=== PATIENT | female | born 1930 | race Caucasian/White ===

== ENCOUNTER 2017-07-16 15:49 | Inpatient (IN) | payer MEDICARE ==
[~2017-07-16] VITALS: Ht 165.1 cm; Wt 81.0 kg
[~2017-07-16 15:49] MED LIST: AMLO10TA2 PO; ASPI1TAB69 PO; CALTTAB PO; SYSTSOL EACH EYE
[2017-07-16 15:54] VITALS: BP 156/70; PULSE 72; RESP 16; TEMP 98; O2SAT 95
[2017-07-16] MEDS ORDERED: DEPRESSION MED (16:05)
[2017-07-16] MEDS ORDERED: TETANUS/DIPHTHERIA TOXOID ADULT 0.5 ML VIAL IM ONE (16:15)
--- NOTE | 2017-07-16 16:20 | PD ---
HPI Chief Complaint: Fall Time Seen by Provider: 15:59 Travel History International Travel<30 days: No Contact w/Intl Traveler<30days: No Traveled to known affect area: No History of Present Illness HPI The patient is a 87-year-old female who presents to the emergency department after tripping fall. The patient states she tripped earlier today and landed on her knees and her chin. The patient is unsure if there was any loss of consciousness, did complain initially of dizziness, but states the dizziness has resolved. She does complain of abrasion on the chin as well as a laceration and intraoral area, but denies any difficulty opening or closing the jaw. She does complain of a mild headache. She denies any neck pain, chest pain, shortness breath, nausea, abdominal pain, or difficulty moving her upper or lower extremities. The patient was able to ambulate after the accident. Her last tetanus shot is unknown. The patient's primary physician is Dr. Hernandez. The patient's symptoms are mild, exacerbated after falling, and mostly self alleviating except for the laceration. The patient denies taking any anticoagulants including aspirin, Plavix, Coumadin, and new generation anticoagulants. PFSH Past Medical History Hx Anticoagulant Therapy: No Arthritis: Yes (mild) Anxiety: Yes Depression: Yes Heart Rhythm Problems: Yes Cancer: No Cardiovascular Problems: Yes ("SKIPS A BEAT") High Cholesterol: Yes Diabetes: No Diminished Hearing: No Endocrine: No Gastrointestinal Disorders: Yes (GERD) GERD: Yes Genitourinary: No Hepatitis: No Hiatal Hernia: Yes Hypertension: Yes Immune Disorder: No Implanted Vascular Access Dvce: No Musculoskeletal: Yes (OA) Neurologic: Yes (VERTIGO) Psychiatric: Yes (DEPRESSION/ANXIETY (LOST 2 SONS RECENTLY)) Reproductive: No Respiratory: No Thyroid Disease: No Influenza Vaccination: Yes Menopausal: Yes Past Surgical History AICD: No Eye Surgery: Yes (sera cataract) Genitourinary Surgery: Yes (cystoscopy) Joint Replacement: Yes (LEFT KNEE) Oral Surgery: Yes (T & A) Pacemaker: No Other Surgery: Yes Social History Alcohol Use: No Tobacco Use: No Substance Use: No Allergies-Medications (Allergen,Severity, Reaction): Coded Allergies: No Known Allergies (Verified , 12/24/16) Reported Meds & Prescriptions Reported Meds & Active Scripts Active Reported [Depression Med] Systane Opth Drops (Polyethylene Glycol-Propylene Glycol Opth Drp) 0.4-0.3% Soln 1-2 Drop EACH EYE BID PRN Amlodipine (Amlodipine Besylate) 10 Mg Tab 10 Mg PO DAILY Review of Systems Except as stated in HPI: all other systems reviewed are Neg Eyes: No: Visual changes HENT: Positive: Headaches, Other (lip laceration and chin abrasion is noted), No: Neck Pain Cardiovascular: No: Chest Pain or Discomfort, Syncope Respiratory: No: Shortness of Breath Gastrointestinal: No: Nausea, Vomiting, Abdominal Pain Musculoskeletal: No: Limited ROM, Weakness, Pain Neurologic: Positive: Headache, No: Focal Abnormalities, Change in Mentation, Slurred Speech, Paresthesia, Incontinence Physical Exam Narrative GENERAL: Awake, alert, very pleasant 87-year-old female who appears her stated age and is in no acute respiratory distress. SKIN: Focused skin assessment warm/dry. HEAD: Superficial abrasion over the right aspect of the chin. EYES: Pupils equal and round. Pupils are 2 mm bilateral and reactive. EOMs are intact. With the patient wearing glasses she is able to see fingers at a distance of 2 feet without difficulty. ENT: No nasal bleeding or discharge. Patient has a laceration on the inside of the lower lip that is Y-shaped and measures 2 cm. NECK: Trachea midline. No JVD. No tenderness of the cervical vertebrae. CARDIOVASCULAR: Regular rate and rhythm. No murmur appreciated. RESPIRATORY: No accessory muscle use. Clear to auscultation. Breath sounds equal bilaterally. GASTROINTESTINAL: Abdomen soft, non-tender, nondistended. MUSCULOSKELETAL: No obvious deformities. No clubbing. No cyanosis. No edema. Well-healed scars of the anterior aspect of the knees bilaterally. Full range of motion with flexion and extension of the knees, hips, and elbows bilaterally. NEUROLOGICAL: Awake and alert. No obvious cranial nerve deficits. Motor grossly within normal limits. Normal speech. Alert and oriented 4. Follows commands without difficulty. Back: No tenderness over the thoracic or lumbar vertebrae. PSYCHIATRIC: Appropriate mood and affect; insight and judgment normal. Data Data Last Documented VS Vital Signs Date Time Temp Pulse Resp B/P (MAP) Pulse Ox O2 Delivery O2 Flow Rate FiO2 07/16/17 15:54 98.0 72 16 156/70 (98) 95 Orders Orders Tetanus/Diphtheria Tox Adult (Tetanus/Di (07/16/17 16:15) Ct Brain W/O Iv Contrast(Rout) (07/16/17 ) Bupivacaine Pf 0.5% Inj (Marcaine Pf 0.5 (07/16/17 16:45) Complete Blood Count With Diff (07/16/17 16:42) Comprehensive Metabolic Panel (07/16/17 16:42) Act Partial Throm Time (Ptt) (07/16/17 16:42) Prothrombin Time / Inr (Pt) (07/16/17 16:42) Type And Screen (07/16/17 16:42) NPO (07/16/17 16:42) Admit Order (Ed Use Only) (07/16/17 16:51) Labs Laboratory Tests Test 07/16/17 16:50 White Blood Count 10.0 TH/MM3 Red Blood Count 4.86 MIL/MM3 Hemoglobin 13.1 GM/DL Hematocrit 40.1 % Mean Corpuscular Volume 82.5 FL Mean Corpuscular Hemoglobin 26.8 PG Mean Corpuscular Hemoglobin Concent 32.5 % Red Cell Distribution Width 13.4 % Platelet Count 281 TH/MM3 Mean Platelet Volume 8.0 FL Neutrophils (%) (Auto) 72.1 % Lymphocytes (%) (Auto) 18.5 % Monocytes (%) (Auto) 7.4 % Eosinophils (%) (Auto) 1.7 % Basophils (%) (Auto) 0.3 % Neutrophils # (Auto) 7.2 TH/MM3 Lymphocytes # (Auto) 1.9 TH/MM3 Monocytes # (Auto) 0.7 TH/MM3 Eosinophils # (Auto) 0.2 TH/MM3 Basophils # (Auto) 0.0 TH/MM3 CBC Comment DIFF FINAL Differential Comment Prothrombin Time 10.3 SEC Prothromb Time International Ratio 0.9 RATIO Activated Partial Thromboplast Time 25.2 SEC Blood Urea Nitrogen 22 MG/DL Creatinine 0.60 MG/DL Random Glucose 101 MG/DL Total Protein 7.3 GM/DL Albumin 3.5 GM/DL Calcium Level 8.7 MG/DL Alkaline Phosphatase 75 U/L Aspartate Amino Transf (AST/SGOT) 18 U/L Alanine Aminotransferase (ALT/SGPT) 20 U/L Total Bilirubin 0.3 MG/DL Sodium Level 138 MEQ/L Potassium Level 3.7 MEQ/L Chloride Level 103 MEQ/L Carbon Dioxide Level 27.1 MEQ/L Anion Gap 8 MEQ/L Estimat Glomerular Filtration Rate 94 ML/MIN [facility] Medical Decision Making Medical Screen Exam Complete: Yes Emergency Medical Condition: Yes Medical Record Reviewed: Yes Interpretation(s) CT of the brain reveals a focal acute right sided epidural hematoma along the mid right parietal lobe with 1.4 cm of separation. No associated skull fracture. 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 There is bilateral cortical atrophy. Last Impressions Head CT 07/16/17 0000 Signed Impressions: Service Date/Time: Sunday, July 16, 2017 16:26 - CONCLUSION: 1. There is a focal acute right-sided epidural hematoma along the mid right parietal lobe with 1.4 cm of separation. No associated skull fracture. 2. 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 There is bilateral cortical atrophy Ruben Yanes MD Laboratory Tests Test 07/16/17 16:50 White Blood Count 10.0 TH/MM3 Red Blood Count 4.86 MIL/MM3 Hemoglobin 13.1 GM/DL Hematocrit 40.1 % Mean Corpuscular Volume 82.5 FL Mean Corpuscular Hemoglobin 26.8 PG Mean Corpuscular Hemoglobin Concent 32.5 % Red Cell Distribution Width 13.4 % Platelet Count 281 TH/MM3 Mean Platelet Volume 8.0 FL Neutrophils (%) (Auto) 72.1 % Lymphocytes (%) (Auto) 18.5 % Monocytes (%) (Auto) 7.4 % Eosinophils (%) (Auto) 1.7 % Basophils (%) (Auto) 0.3 % Neutrophils # (Auto) 7.2 TH/MM3 Lymphocytes # (Auto) 1.9 TH/MM3 Monocytes # (Auto) 0.7 TH/MM3 Eosinophils # (Auto) 0.2 TH/MM3 Basophils # (Auto) 0.0 TH/MM3 CBC Comment DIFF FINAL Differential Comment Prothrombin Time 10.3 SEC Prothromb Time International Ratio 0.9 RATIO Activated Partial Thromboplast Time 25.2 SEC Blood Urea Nitrogen 22 MG/DL Creatinine 0.60 MG/DL Random Glucose 101 MG/DL Total Protein 7.3 GM/DL Albumin 3.5 GM/DL Calcium Level 8.7 MG/DL Alkaline Phosphatase 75 U/L Aspartate Amino Transf (AST/SGOT) 18 U/L Alanine Aminotransferase (ALT/SGPT) 20 U/L Total Bilirubin 0.3 MG/DL Sodium Level 138 MEQ/L Potassium Level 3.7 MEQ/L Chloride Level 103 MEQ/L Carbon Dioxide Level 27.1 MEQ/L Anion Gap 8 MEQ/L Estimat Glomerular Filtration Rate 94 ML/MIN Differential Diagnosis Differential diagnosis includes mechanical fall, closed head injury, concussion , intracranial hemorrhage, subarachnoid hemorrhage, subdural hemorrhage, laceration, abrasion. Narrative Course CT of the brain was obtained. The patient's tetanus shot was updated. The patient declined Tylenol for pain at bedside. The patient's laceration was repaired by the mid-level provider, please refer to the procedure note. CT of the brain was positive for focal acute right sided epidural hematoma along the mid right parietal lobe with 1.4 cm of separation and no underlying associated skull fracture. A chronic appearing right sided subdural hygroma along the right frontal lobe. A stat call was placed to neurosurgery, I discussed the patient with the [facility]-level provider for Dr. Ramos who recommends stat transfer to [facility] and to the intensive surgical care unit under the care of the organ tuner. The patient will be kept nothing by mouth, last meal was at 2 PM. PT, PTT, INR, CBC, CMP, and type and screen were sent to lab. The patient will be transferred stat to [facility]. A call was placed to the organ tuner. The patient's blood pressure of 4:53 PM was 140/69, therefore, Cardene was held. Critical Care Narrative Aggregate critical care time was 40 minutes. Time to perform other separately billable procedures was not included in the critical care time. My time did not include minutes spent treating any other patients simultaneously or on activities that did not directly contribute to the patient's treatment. The services I provided to this patient were to treat and/or prevent clinically significant deterioration that could result in: Midline shift, herniation, agonal respirations, . I provided critical care services requiring my management, as noted below: Chart data review, documentation time, medication orders and management, vital sign assessments/reviewing monitor data, ordering and reviewing lab tests, ordering and interpreting/reviewing x-rays and diagnostic studies, care of the patient and discussion of the patient with the admitting physicians. Physician Communication Physician Communication I discussed the patient with the mid-level provider for Dr. Ramos who recommends stat transfer to [facility] and admission to the organ tuner. A call was placed to the organ tuner. I discussed the patient with Dr. Small who agrees with admission. Diagnosis Primary Impression: Traumatic epidural hematoma Qualified Codes: S06.4X0A - Epidural hemorrhage without loss of consciousness , initial encounter Additional Impression: Laceration of lip Qualified Codes: S01.511A - Laceration without foreign body of lip, initial encounter Admitting Information Admitting Physician Requests: Admit Condition: Serious Karan Zarate MD Jul 16, 2017 16:19
--- NOTE | 2017-07-16 16:39 | RADRPT ---
EXAM DATE/TIME: 07/16/2017 16:26 [facility] COMPARISON: No previous studies available for comparison. INDICATIONS : Tripped and fell. Hit head. RADIATION DOSE: 60.19 CTDIvol (mGy) MEDICAL HISTORY : Hypertension. Hypercholesterolemia. Anticoagulant therapy. SURGICAL HISTORY : None. ENCOUNTER: Initial ACUITY: 1 day PAIN SCALE: 4/10 LOCATION: cranial TECHNIQUE: Multiple contiguous axial images were obtained of the head. Using automated exposure control and adj ustment of the mA and/or kV according to patient size, radiation dose was kept as low as reasonably a chievable to obtain optimal diagnostic quality images. DICOM format image data is available electro nically for review and comparison. FINDINGS: CEREBRUM: The ventricles are normal for age. No evidence of midline shift, mass lesion or acute infarction. H owever, there is a focal acute epidural hematoma along the mid right parietal lobe with 1.4 cm of sep aration. There is a chronic appearing subdural hygroma along the right frontal lobe. There is bilater al cortical atrophy. POSTERIOR FOSSA: The cerebellum and brainstem are intact. The 4th ventricle is midline. The cerebellopontine angle i s unremarkable. EXTRACRANIAL: The visualized portion of the orbits is intact. SKULL: The calvaria is intact. No evidence of skull fracture. CONCLUSION: 1. There is a focal acute right-sided epidural hematoma along the mid right parietal lobe with 1.4 cm of separation. No associated skull fracture. 2. 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 There is bilateral cortical atrophy Ruben Yanes MD on July 16, 2017 at 16:34 Board Certified Radiologist. This report was verified electronically.
[2017-07-16] MEDS ORDERED: BUPIVACAINE HCL PF 0.5% 10 ML VIAL INFIL ONE (16:45)
--- NOTE | 2017-07-16 17:03 | PD ---
Physical Exam Narrative I was asked by Dr. Zarate to repair patient's intraoral laceration. Please see his documentation for full H&P. Data Data Last Documented VS Vital Signs Date Time Temp Pulse Resp B/P (MAP) Pulse Ox O2 Delivery O2 Flow Rate FiO2 07/16/17 15:54 98.0 72 16 156/70 (98) 95 Orders Orders Tetanus/Diphtheria Tox Adult (Tetanus/Di (07/16/17 16:15) Ct Brain W/O Iv Contrast(Rout) (07/16/17 ) Bupivacaine Pf 0.5% Inj (Marcaine Pf 0.5 (07/16/17 16:45) Complete Blood Count With Diff (07/16/17 16:42) Comprehensive Metabolic Panel (07/16/17 16:42) Act Partial Throm Time (Ptt) (07/16/17 16:42) Prothrombin Time / Inr (Pt) (07/16/17 16:42) Type And Screen (07/16/17 16:42) NPO (07/16/17 16:42) Admit Order (Ed Use Only) (07/16/17 16:51) Labs Laboratory Tests Test 07/16/17 16:50 MDM Supervised Visit with JOHN: No Procedures Procedure Narrative LACERATION REPAIR LOCATION: Intraoral lower lip LENGTH: Approximately 2 cm L-shaped NUMBER OF STITCHES/JUAN: 2 simple interrupted REPAIR: Verbal consent was obtained. The area of the laceration was cleaned and prepped. The laceration was infiltrated with Marcaine without epi. The wound was copiously irrigated and explored without evidence of foreign body or neurovascular injury. The wound was closed using 5-0 chromic gut. This was a single layer repair. There were no complications. Patient tolerated the procedure well. Diagnosis Primary Impression: Traumatic epidural hematoma Qualified Codes: S06.4X0A - Epidural hemorrhage without loss of consciousness , initial encounter Additional Impression: Laceration of lip Qualified Codes: S01.511A - Laceration without foreign body of lip, initial encounter Condition: Serious Jeremías Babb Jul 16, 2017 17:03
[2017-07-16 17:07] LABS: AUTOMATED NEUTROPHIL # 7.2 TH/MM3 (1.8-7.7); BASOPHIL % 0.3 % (0.0-2.0); EOSINOPHIL # 0.2 TH/MM3 (0-0.4); EOSINOPHIL % 1.7 % (0.0-4.0); HEMATOCRIT 40.1 % (35.0-46.0); LYMPH % 18.5 % (9.0-44.0); LYMPHOCYTE # 1.9 TH/MM3 (1.0-4.8); MEAN CELL VOLUME 82.5 FL (80.0-100.0); MEAN CORPUSCULAR HEMOGLOBIN 26.8 PG (27.0-34.0); MEAN CORPUSCULAR HGB CONC 32.5 % (32.0-36.0); MONO % 7.4 % (0.0-8.0); NEUT % 72.1 % (16.0-70.0); PLATELET COUNT 281 TH/MM3 (150-450); RED BLOOD COUNT 4.86 MIL/MM3 (4.00-5.30); RED CELL DISTRIBUTION WIDTH 13.4 % (11.6-17.2)
[2017-07-16 17:10] VITALS: BP 118/66; PULSE 66; RESP 17; O2SAT 96
[2017-07-16] MEDS ORDERED: SODIUM CHLOR 0.9% 1000 ML INJ 1,000 ML IV SCH ×2 (17:12→23:50)
[2017-07-16 17:15] LABS: CHLORIDE 103 MEQ/L (98-107); POTASSIUM 3.7 MEQ/L (3.5-5.1); SODIUM (NA) 138 MEQ/L (136-145)
[2017-07-16] MEDS ORDERED: CHLORHEXIDINE GLUCONATE 2 % 1 PACK (2 CLOTHS) TOP PRN (17:15)
[2017-07-16] MEDS ORDERED: RESP: ALBUTEROL 2.5 MG/IPRATROPIUM 0.5 MG NEB (PRN) INH (17:15)
[2017-07-16] MEDS ORDERED: MISCELLANEOUS NURSING INFORMATION XX SCH (17:15)
[2017-07-16] MEDS ORDERED: ONDANSETRON HCL 4 MG/2 ML VIAL IV PUSH PRN (17:15)
[2017-07-16] MEDS ORDERED: ACETAMINOPHEN 325 MG TAB PO PRN (17:15)
[2017-07-16] MEDS ORDERED: MORPHINE SULFATE 4 MG/ML INJ IV PUSH PRN (17:15)
[2017-07-16 17:19] LABS: ANION GAP 8 MEQ/L (5-15); BICARBONATE 27.1 MEQ/L (21.0-32.0); BLOOD UREA NITROGEN 22 MG/DL (7-18)
[2017-07-16 17:20] LABS: APTT (PATIENT) 25.2 SEC (24.3-30.1); INTERNATIONAL NORMALIZED RATIO 0.9 RATIO; PROTHROMBIN TIME - PATIENT 10.3 SEC (9.8-11.6)
[2017-07-16 17:22] LABS: ALT (GPT) 20 U/L (10-53); AST (GOT) 18 U/L (15-37)
[2017-07-16 17:23] LABS: GLOMERULAR FILTRATION RATE 94 ML/MIN (>89)
[2017-07-16 17:24] LABS: TOTAL BILIRUBIN ADULT 0.3 MG/DL (0.2-1.0)
[2017-07-16 17:25] LABS: ALKALINE PHOSPHATASE 75 U/L (45-117)
[2017-07-16 17:28] LABS: HEMO FLAGS DIFF FINAL
[2017-07-16] MEDS ORDERED: ARTIFICIAL TEARS OPTH SOLN 15 ML BTL EACH EYE PRN ×2 (17:30)
[2017-07-16 18:00] VITALS: BP 152/88; PULSE 66; RESP 18; TEMP 98.3; O2SAT 94
--- NOTE | 2017-07-16 18:49 | PD.CONS ---
[facility] Service Neurosurgery Consult Requested By [facility] Dr Martin Reason for Consult Epidural hematoma Primary Care Physician Wili Hernandez MD History of Present Illness This is a 87-year-old female who presents to [facility] emergency department after tripping fall. She states she tripped earlier today and landed on her knees and her chin. The patient is unsure if there was any loss of consciousness. No seizure activity. No tongue bitting. No incontinence of stool or urine. She had initially dizziness, but states the dizziness has resolved. She has an abrasion on the chin as well as a laceration and intraoral area, but denies any difficulty opening or closing the jaw. She does complain of a mild headache. She denies any neck pain, chest pain, shortness breath, nausea, abdominal pain, or difficulty moving her upper or lower extremities. The patient was able to ambulate after the accident. She denies any focal weaknes. Denies sensory loss. . Her primary physician is Dr. Hernandez. The patient's symptoms are mild, exacerbated after falling, and mostly self alleviating except for the laceration. The patient denies taking any anticoagulants including aspirin, Plavix, Coumadin, and new generation anticoagulants. Review of Systems Constitutional: DENIES: Diaphoretic episodes, Fatigue, Fever, Weight gain, Weight loss, Chills, Dizziness, Change in appetite, Night Sweats Endocrine: DENIES: Abnorml menstrual pattern, Heat/cold intolerance, Polydipsia , Polyuria, Polyphagia Eyes: DENIES: Blurred vision, Diplopia, Eye inflammation, Eye pain, Vision loss , Photosensitivity, Double Vision Ears, nose, mouth, throat: DENIES: Tinnitus, Hearing loss, Vertigo, Nasal discharge, Oral lesions, Throat pain, Hoarseness, Ear Pain, Running Nose, Epistaxis, Sinus Pain, Toothache, Odynophagia Respiratory: DENIES: Apneas, Cough, Snoring, Wheezing, Hemoptysis, Sputum production, Shortness of breath Gastrointestinal: DENIES: Abdominal pain, Black stools, Bloody stools, Constipation, Diarrhea, Nausea, Vomiting, Difficulty Swallowing, Anorexia Genitourinary: DENIES: Abnormal vaginal bleeding, Dysmenorrhea, Dyspareunia, Sexual dysfunction, Urinary frequency, Urinary incontinence, Urgency, Hematuria , Dysuria, Nocturia, Vaginal discharge Musculoskeletal: DENIES: Joint pain, Muscle aches, Stiffness, Joint Swelling, Back pain, Neck pain Integumentary: DENIES: Abnormal pigmentation, Pruritus, Rash, Nail changes, Breast masses, Breast skin changes, Nipple discharge Hematologic/lymphatic: DENIES: Bruising, Lymphadenopathy Immunologic/allergic: DENIES: Eczema, Urticaria Neurologic: COMPLAINS OF: Headache, Speech Problems, DENIES: Abnormal gait, Localized weakness, Paresthesias, Seizures, Tremor, Poor Balance Psychiatric: COMPLAINS OF: Anxiety, Depression, DENIES: Confusion, Mood changes , Hallucinations, Agitation, Suicidal Ideation, Homicidal Ideation, Delusions Past Family Social History Allergies: Coded Allergies: No Known Allergies (Verified , 12/24/16) Past Medical History Arthritis: Yes (mild) Anxiety: Yes Depression: Yes Heart Rhythm Problems: Yes Cancer: No Cardiovascular Problems: Yes ("SKIPS A BEAT") High Cholesterol: Yes Diabetes: No Diminished Hearing: No Endocrine: No Gastrointestinal Disorders: Yes (GERD) GERD: Yes Genitourinary: No Hepatitis: No Hiatal Hernia: Yes Hypertension: Yes Immune Disorder: No Implanted Vascular Access Dvce: No Musculoskeletal: Yes (OA) Neurologic: Yes (VERTIGO) Psychiatric: Yes (DEPRESSION, ANXIETY Reproductive: No Respiratory: No Thyroid Disease: No Influenza Vaccination: Yes Menopausal: Yes Past Surgical History AICD: No Eye Surgery: Yes (sera cataract) Genitourinary Surgery: Yes (cystoscopy) Joint Replacement: Yes (LEFT KNEE) Oral Surgery: Yes (T & A) Pacemaker: No Reported Medications Systane Opth Drops (Polyethylene Glycol-Propylene Glycol Opth Drp) 0.4-0.3% Soln 1-2 Drop EACH EYE BID PRN Amlodipine (Amlodipine Besylate) 10 Mg Tab 10 Mg PO DAILY Active Ordered Medications Current Medications Tetanus/ Diphtheria Toxoids (Tetanus/ Diphtheria Tox Adult) 0.5 ml ONCE ONCE IM Last administered on 07/16/17t 16:55; Start 07/16/17 at 16:15; Stop at 16:16; Status DC Bupivacaine HCl (Marcaine Pf 0.5% Inj) 10 ml ONCE ONCE INFIL Last administered on 07/16/17 16:55; Start 07/16/17 at 16:45; Stop 07/16/17 at 16 :46; Status DC Sodium Chloride 1,000 ml @ 75 mls/hr [id number] IV Last administered on 17:12; Start 07/16/17 at 17:12 Acetaminophen (Tylenol) 650 mg Q6H PRN PO PAIN 1-10 AND/OR FEVER >101F Last administered on 07/16/17 18:31; Start 07/16/17 at 17:15 Morphine Sulfate (Morphine Inj) 2 mg Q2H PRN IV PUSH PAIN SCALE 6 TO 10; Start 07/16/17 at 17:15 Pantoprazole Sodium (Protonix Inj) 40 mg DAILY IV PUSH ; Start 07/17/17 at 09: 00 Ondansetron HCl (Zofran Inj) 4 mg Q6H PRN IV PUSH NAUSEA OR VOMITING; Start at 17:15 Albuterol/ Ipratropium (Duoneb Neb) 1 ampule Q4HR NEB PRN INH WHEEZING; Start 07/16/17 at 17:15 Miscellaneous Information 1 [id number] XX Last administered on 07/16/17 17:15; Start 07/16/17 at 17:15 Chlorhexidine Gluconate (Chlorhexidine 2% Cloth) 3 pack Taper DAILY@04 TOP ; Start 07/17/17 at 04:00; Stop 07/13/18 at 03:59 Chlorhexidine Gluconate (Chlorhexidine 2% Cloth) 3 pack UNSCH PRN TOP HYGIENIC CARE; Start 07/16/17 at 17:15 Artificial Tears (Tears Naturale Opth Soln) 2 drop BID PRN EACH EYE DRY EYES; Start 07/16/17 at 17:30; Stop 07/16/17 at 17:30; Status DC Artificial Tears (Tears Naturale Opth Soln) 2 drop BID PRN EACH EYE DRY EYES; Start 07/16/17 at 17:30 Family History Her family history was reviewed and was noncontributory to this traumatic event Social History Social History Alcohol Use: No Tobacco Use: No Substance Use: No Physical Exam Vital Signs The patient is alert, awake and oriented to time, place and person. Speech is fluent. Higher cognitive functions are normal. Cranial nerve examination demonstrates the pupils to be equal, round, and reactive to light. Extra-ocular movements are intact. Facial motor and sensory function are normal and symmetrical. Gross hearing is decreased. The uvula is midline and elevates symmetrically with the soft palate. Sternocleidomastoid and trapezius muscles have normal and symmetrical strength. Other cranial nerves are intact. Neck is soft and supple. Cervical spine has a full range of motion in anterior flexion, extension, lateral bending, and rotation without pain. There is no tenderness to palpation to the spinous processes or paraspinal muscles. Muscle testing reveals normal bulk and tone overall without rigidity, spasticity , fasciculations, or atrophy. Muscle strength is 5/5 in all muscle groups of both upper extremities including deltoid, biceps, triceps, brachioradialis, wrist extension and spinning and winding supervisor. In the lower extremities, strength is 5/5 in both iliopsoas, quadriceps, hamstrings, plantar flexion, dorsiflexion, and extensor hallicus longus. Sensory examination is intact to light touch and sharp/dull discrimination in both the upper and lower extremities, symmetrically. Deep tendon reflexes are 2+ and symmetrical in the biceps, triceps, and brachioradialis, bilaterally, in the upper extremities. In the lower extremities , the patellar and Achilles are 2+, bilaterally. There is a bilateral plantar flexion response. Hoffmanns sign is negative. There is no clonus or other abnormal reflexes noted. Cerebellar examination is intact to [id number] test, rapid rhythmic alternating motion. There is no dysmetria, dysdiadochokinesia, truncal ataxia, or tremor. Vital Signs Date Time Temp Pulse Resp B/P (MAP) Pulse Ox O2 Delivery O2 Flow Rate FiO2 07/16/17 18:00 66 07/16/17 18:00 98.3 66 18 152/88 (109) 94 07/16/17 17:10 66 17 118/66 (83) 96 Room Air 07/16/17 15:54 98.0 72 16 156/70 (98) 95 Laboratory Laboratory Tests Test 07/16/17 16:50 07/16/17 18:30 White Blood Count 10.0 Red Blood Count 4.86 Hemoglobin 13.1 Hematocrit 40.1 Mean Corpuscular Volume 82.5 Mean Corpuscular Hemoglobin 26.8 Mean Corpuscular Hemoglobin Concent 32.5 Red Cell Distribution Width 13.4 Platelet Count 281 Mean Platelet Volume 8.0 Neutrophils (%) (Auto) 72.1 Lymphocytes (%) (Auto) 18.5 Monocytes (%) (Auto) 7.4 Eosinophils (%) (Auto) 1.7 Basophils (%) (Auto) 0.3 Neutrophils # (Auto) 7.2 Lymphocytes # (Auto) 1.9 Monocytes # (Auto) 0.7 Eosinophils # (Auto) 0.2 Basophils # (Auto) 0.0 CBC Comment DIFF FINAL Differential Comment Prothrombin Time 10.3 Prothromb Time International Ratio 0.9 Activated Partial Thromboplast Time 25.2 Blood Urea Nitrogen 22 Creatinine 0.60 Random Glucose 101 Total Protein 7.3 Albumin 3.5 Calcium Level 8.7 Alkaline Phosphatase 75 Aspartate Amino Transf (AST/SGOT) 18 Alanine Aminotransferase (ALT/SGPT) 20 Total Bilirubin 0.3 Sodium Level 138 Potassium Level 3.7 Chloride Level 103 Carbon Dioxide Level 27.1 Anion Gap 8 Estimat Glomerular Filtration Rate 94 Result Diagram: 07/16/17164907/16/171649 Assessment and Plan Assessment and Plan Caprini VTE Risk Assessment Caprini VTE Risk Assessment: Mod/High Risk (score >= 2) VTE Pharm Contraindication: High risk for bleeding Caprini Risk Assessment Model Point Value = 1 Point Value = 2 Point Value = 3 Point Value = 5 Age 41-60 Minor surgery BMI > 25 kg/m2 Swollen legs Varicose veins or History of unexplained or recurrent spontaneous Oral contraceptives or hormone replacement Sepsis (< 1 month) Serious lung disease, including pneumonia (< 1 month) Abnormal pulmonary function Acute myocardial infarction Congestive heart failure (< 1 month) History of inflammatory bowel disease Medical patient at bed rest Age 61-74 Arthroscopic surgery Major open surgery (> 45 min) Laparoscopic surgery (> 45 min) Malignancy Confined to bed (> 72 hours) Immobilizing plaster cast Central venous access Age >= 75 History of VTE Family history of VTE Factor V Leiden Prothrombin [id number] Lupus anticoagulant Anticardiolipin antibodies Elevated serum homocysteine Heparin-induced thrombocytopenia Other congenital or acquired thrombophilia Stroke (< 1 month) Elective arthroplasty Hip, pelvis, or leg fracture Acute spinal cord injury (< 1 month) Prophylaxis Regimen Total Risk Factor Score Risk Level Prophylaxis Regimen 0-1 Low Early ambulation 2 Moderate Order ONE of the following: *Sequential Compression Device (SCD) *Heparin 5000 units SQ BID 3-4 Higher Order ONE of the following medications: *Heparin 5000 units SQ TID *Enoxaparin/Lovenox 40 mg SQ daily (WT < 150 kg, CrCl > 30 mL/min) *Enoxaparin/Lovenox 30 mg SQ daily (WT < 150 kg, CrCl > 10-29 mL/min) *Enoxaparin/Lovenox 30 mg SQ BID (WT < 150 kg, CrCl > 30 mL/min) AND/OR *Sequential Compression Device (SCD) 5 or more Highest Order ONE of the following medications: *Heparin 5000 units SQ TID (Preferred with Epidurals) *Enoxaparin/Lovenox 40 mg SQ daily (WT < 150 kg, CrCl > 30 mL/min) *Enoxaparin/Lovenox 30 mg SQ daily (WT < 150 kg, CrCl > 10-29 mL/min) *Enoxaparin/Lovenox 30 mg SQ BID (WT < 150 kg, CrCl > 30 mL/min) AND *Sequential Compression Device (SCD) Attending Statement traumatic brain injury. Neuro checks in a serial fashion. Nonoperative treatent for now. Follow up CT in AM PT and OT evaluation Scalp laceration. Repaired at bedside. Wound care with bacitracin Pulmonary aggressive pulmonary toilette, nasotracheal suction, and breathing treatments with nebulizers. Nutrition. NPO Abrasion and laceration. Wound care with bacitracin Renal. monitor closely urine output, BUN and creatinine Fernandez in place. Monitor intake and output. Monitor electrolytes and replace as indicated per ICU electrolyte replacement protocol. ENDO:Acute hyperglycemia secondary to trauma. Monitor bedside glucose and initiate low-dose insulin sliding scale as indicated for glucose greater than 180 Protonix for stress ulcer prophylaxis Alonzo resendez and SCD's for DVT prophylaxis Yonatan Ramos MD Jul 16, 2017 18:49
[2017-07-16 20:00] VITALS: BP 144/67; PULSE 62; RESP 17; TEMP 98.1; O2SAT 94
[2017-07-16] MEDS ORDERED: ESCI10TA PO (21:08)
[2017-07-16 22:00] VITALS: PULSE 62
[2017-07-16] MEDS ORDERED: ESCITALOPRAM OXALATE 10 MG TAB PO ONE (23:00)
--- NOTE | 2017-07-16 23:46 | HHI.HP ---
[facility] Service Critical Care Medicine Primary Care Physician Wili Hernandez MD Admission Diagnosis epidural hematoma, laceration lower lip Diagnosis: Travel History International Travel<30 Days: No Contact w/Intl Traveler <30 Da: No Traveled to Known Affected Are: No History of Present Illness 87-year-old female who presented to [facility] emergency department after tripping fall. She states she tripped earlier today and landed on her knees and her chin. The patient is unsure if there was any loss of consciousness. No seizure activity. No tongue bitting. No incontinence of stool or urine. She had initially dizziness, but states the dizziness has resolved. She has an abrasion on the chin as well as a laceration and intraoral area, but denies any difficulty opening or closing the jaw. She does complain of a mild headache. She denies any neck pain, chest pain, shortness breath, nausea, abdominal pain, or difficulty moving her upper or lower extremities. The patient was able to ambulate after the accident. She denies any focal weaknes. Denies sensory loss. The CT of the head done in the emergency department revealed focal acute right-sided epidural hematoma along the mid right parietal lobe with 1.4 cm of separation. 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 Review of Systems ROS Constitutional: DENIES: Diaphoretic episodes, Fatigue, Fever, Weight gain, Weight loss, Chills, Dizziness, Change in appetite, Night Sweats Endocrine: DENIES: Abnorml menstrual pattern, Heat/cold intolerance, Polydipsia , Polyuria, Polyphagia Eyes: DENIES: Blurred vision, Diplopia, Eye inflammation, Eye pain, Vision loss , Photosensitivity, Double Vision Ears, nose, mouth, throat: DENIES: Tinnitus, Hearing loss, Vertigo, Nasal discharge, Oral lesions, Throat pain, Hoarseness, Ear Pain, Running Nose, Epistaxis, Sinus Pain, Toothache, Odynophagia Respiratory: DENIES: Apneas, Cough, Snoring, Wheezing, Hemoptysis, Sputum production, Shortness of breath Gastrointestinal: DENIES: Abdominal pain, Black stools, Bloody stools, Constipation, Diarrhea, Nausea, Vomiting, Difficulty Swallowing, Anorexia Genitourinary: DENIES: Abnormal vaginal bleeding, Dysmenorrhea, Dyspareunia, Sexual dysfunction, Urinary frequency, Urinary incontinence, Urgency, Hematuria , Dysuria, Nocturia, Vaginal discharge Musculoskeletal: DENIES: Joint pain, Muscle aches, Stiffness, Joint Swelling, Back pain, Neck pain Integumentary: DENIES: Abnormal pigmentation, Pruritus, Rash, Nail changes, Breast masses, Breast skin changes, Nipple discharge Hematologic/lymphatic: DENIES: Bruising, Lymphadenopathy Immunologic/allergic: DENIES: Eczema, Urticaria Neurologic: COMPLAINS OF: Headache, Speech Problems, DENIES: Abnormal gait, Localized weakness, Paresthesias, Seizures, Tremor, Poor Balance Psychiatric: COMPLAINS OF: Anxiety, Depression, DENIES: Confusion, Mood changes , Hallucinations, Agitation, Suicidal Ideation, Homicidal Ideation, Delusions Past Family Social History Allergies: Coded Allergies: No Known Allergies (Verified , 12/24/16) Past Medical History Hypertension Dyslipidemia Coronary artery disease Past Surgical History Bilateral knee arthroplasty Left hip arthroplasty Reported Medications Reported Meds & Active Scripts Active Reported Escitalopram (Escitalopram Oxalate) 10 Mg Tab 10 Mg PO HS Systane Opth Drops (Polyethylene Glycol-Propylene Glycol Opth Drp) 0.4-0.3% Soln 1-2 Drop EACH EYE BID PRN Amlodipine (Amlodipine Besylate) 10 Mg Tab 10 Mg PO DAILY Active Ordered Medications Current Medications Medications (Trade) Dose Ordered Sig/Hannah Route PRN Reason Start Time Stop Time Status Last Admin Dose Admin Morphine Sulfate (Morphine Inj) 2 mg Q2H PRN IV PUSH PAIN SCALE 6 TO 10 07/16/17 17:15 Pantoprazole Sodium (Protonix Inj) 40 mg DAILY IV PUSH 07/17/17 09:00 Albuterol/ Ipratropium (Duoneb Neb) 1 ampule Q4HR NEB PRN INH WHEEZING 07/16/17 17:15 Artificial Tears (Tears Naturale Opth Soln) 2 drop BID PRN EACH EYE DRY EYES 07/16/17 17:30 Amlodipine Besylate (Norvasc) 10 mg DAILY PO 07/17/17 09:00 Escitalopram Oxalate (Lexapro) 10 mg HS PO 07/17/17 21:00 Sodium Chloride 1,000 ml @ 84 mls/hr [id number] IV 07/16/17 23:50 07/17/17 00:00 Sodium Chloride (NS Flush) 2 ml UNSCH PRN IV FLUSH FLUSH AFTER USING IV ACCESS 07/17/17 00:00 Sodium Chloride (NS Flush) 2 ml BID IV FLUSH 07/17/17 09:00 Acetaminophen (Tylenol) 650 mg Q6H PRN PO PAIN 1-10 AND/OR FEVER >101F 07/17/17 00:00 Famotidine (Pepcid Inj) 20 mg Q12HR IV PUSH 07/17/17 09:00 Ondansetron HCl (Zofran Inj) 4 mg Q6H PRN IV PUSH NAUSEA OR VOMITING 07/17/17 00:00 Albuterol/ Ipratropium (Duoneb Neb) 1 ampule Q2HR NEB PRN INH WHEEZING 07/17/17 00:00 Miscellaneous Information 1 Q361D XX 07/17/17 00:00 Chlorhexidine Gluconate (Chlorhexidine 2% Cloth) 3 pack Taper DAILY@04 TOP 07/17/17 04:00 07/13/18 03:59 Chlorhexidine Gluconate (Chlorhexidine 2% Cloth) 3 pack UNSCH PRN TOP HYGIENIC CARE 07/17/17 00:00 Senna/Docusate Sodium (Coleen-Colace) 1 tab BID PO 07/17/17 09:00 Magnesium Hydroxide (Milk Of Magnesia Liq) 30 ml Q12H PRN PO Mild constipation 07/17/17 00:00 Sennosides (Senokot) 17.2 mg Q12H PRN PO Moderate constipation 07/17/17 00:00 Bisacodyl (Dulcolax Supp) 10 mg DAILY PRN RECTAL SEVERE CONSITIPATION 07/17/17 00:00 Lactulose (Lactulose Liq) 30 ml DAILY PRN PO SEVERE CONSITIPATION 07/17/17 00:00 Family History No family history significant for coronary artery disease or malignancy Social History Denies alcohol tobacco or illicit drug abuse Physical Exam Vital Signs Vital Signs Date Time Temp Pulse Resp B/P (MAP) Pulse Ox O2 Delivery O2 Flow Rate FiO2 07/16/17 19:31 20 07/16/17 18:00 66 07/16/17 18:00 98.3 66 18 152/88 (109) 94 07/16/17 17:10 66 17 118/66 (83) 96 Room Air 07/16/17 15:54 98.0 72 16 156/70 (98) 95 Physical Exam GENERAL: Well-nourished, well-developed patient. SKIN: Warm and dry. HEAD: Normocephalic. EYES: No scleral icterus. No injection or drainage. NECK: Supple, trachea midline. No JVD or lymphadenopathy. CARDIOVASCULAR: Regular rate and rhythm without murmurs, gallops, or rubs. RESPIRATORY: Breath sounds equal bilaterally. No accessory muscle use. GASTROINTESTINAL: Abdomen soft, non-tender, nondistended. MUSCULOSKELETAL: No cyanosis, or edema. BACK: Nontender without obvious deformity. NEURO EXAM: GCS: M6 V5 E4 Mental Status: The patient is alert and oriented to person, place, and time with normal speech. Cranial Nerves: Visual acuity intact bilaterally. Visual mallory normal in all quadrants. Pupils are round, reactive to light. Extraocular movements are intact without ptosis. Hearing is normal bilaterally. Voice is normal. Tongue protrudes midline and moves symmetrically. Reflexes: Biceps, patellar, and Achilles are 2/4 bilaterally. No clonus. Sensation: Sensation is intact bilaterally to pain and light touch. Two-point discrimination is intact. Motor: Good muscle tone. Strength is 5/5 bilaterally. Laboratory Laboratory Tests Test 07/16/17 16:50 07/16/17 18:30 White Blood Count 10.0 Red Blood Count 4.86 Hemoglobin 13.1 Hematocrit 40.1 Mean Corpuscular Volume 82.5 Mean Corpuscular Hemoglobin 26.8 Mean Corpuscular Hemoglobin Concent 32.5 Red Cell Distribution Width 13.4 Platelet Count 281 Mean Platelet Volume 8.0 Neutrophils (%) (Auto) 72.1 Lymphocytes (%) (Auto) 18.5 Monocytes (%) (Auto) 7.4 Eosinophils (%) (Auto) 1.7 Basophils (%) (Auto) 0.3 Neutrophils # (Auto) 7.2 Lymphocytes # (Auto) 1.9 Monocytes # (Auto) 0.7 Eosinophils # (Auto) 0.2 Basophils # (Auto) 0.0 CBC Comment DIFF FINAL Differential Comment Prothrombin Time 10.3 Prothromb Time International Ratio 0.9 Activated Partial Thromboplast Time 25.2 Blood Urea Nitrogen 22 Creatinine 0.60 Random Glucose 101 Total Protein 7.3 Albumin 3.5 Calcium Level 8.7 Alkaline Phosphatase 75 Aspartate Amino Transf (AST/SGOT) 18 Alanine Aminotransferase (ALT/SGPT) 20 Total Bilirubin 0.3 Sodium Level 138 Potassium Level 3.7 Chloride Level 103 Carbon Dioxide Level 27.1 Anion Gap 8 Estimat Glomerular Filtration Rate 94 Nasal Screen MRSA (PCR) MRSA NOT DETECTED Result Diagram: 07/16/17164907/16/171649 Caprini VTE Risk Assessment Caprini VTE Risk Assessment: No/Low Risk (score <= 1) Caprini Risk Assessment Model Point Value = 1 Point Value = 2 Point Value = 3 Point Value = 5 Age 41-60 Minor surgery BMI > 25 kg/m2 Swollen legs Varicose veins or History of unexplained or recurrent spontaneous Oral contraceptives or hormone replacement Sepsis (< 1 month) Serious lung disease, including pneumonia (< 1 month) Abnormal pulmonary function Acute myocardial infarction Congestive heart failure (< 1 month) History of inflammatory bowel disease Medical patient at bed rest Age 61-74 Arthroscopic surgery Major open surgery (> 45 min) Laparoscopic surgery (> 45 min) Malignancy Confined to bed (> 72 hours) Immobilizing plaster cast Central venous access Age >= 75 History of VTE Family history of VTE Factor V Leiden Prothrombin [id number] Lupus anticoagulant Anticardiolipin antibodies Elevated serum homocysteine Heparin-induced thrombocytopenia Other congenital or acquired thrombophilia Stroke (< 1 month) Elective arthroplasty Hip, pelvis, or leg fracture Acute spinal cord injury (< 1 month) Prophylaxis Regimen Total Risk Factor Score Risk Level Prophylaxis Regimen 0-1 Low Early ambulation 2 Moderate Order ONE of the following: *Sequential Compression Device (SCD) *Heparin 5000 units SQ BID 3-4 Higher Order ONE of the following medications: *Heparin 5000 units SQ TID *Enoxaparin/Lovenox 40 mg SQ daily (WT < 150 kg, CrCl > 30 mL/min) *Enoxaparin/Lovenox 30 mg SQ daily (WT < 150 kg, CrCl > 10-29 mL/min) *Enoxaparin/Lovenox 30 mg SQ BID (WT < 150 kg, CrCl > 30 mL/min) AND/OR *Sequential Compression Device (SCD) 5 or more Highest Order ONE of the following medications: *Heparin 5000 units SQ TID (Preferred with Epidurals) *Enoxaparin/Lovenox 40 mg SQ daily (WT < 150 kg, CrCl > 30 mL/min) *Enoxaparin/Lovenox 30 mg SQ daily (WT < 150 kg, CrCl > 10-29 mL/min) *Enoxaparin/Lovenox 30 mg SQ BID (WT < 150 kg, CrCl > 30 mL/min) AND *Sequential Compression Device (SCD) Assessment and Plan Assessment and Plan Epidural hematoma - No surgical intervention at this time - Admit to ICU - Neuro checks per unit protocol - PT and OT eval and treat as tolerated - Further management per neurosurgeon Hygroma - Chronic - Supportive care Hypertension - Continue home dose Norvasc Anxiety - Escitalopram Dyslipidemia - Diet controlled DVT GI prophylaxis - Teds SCDs - Early aggressive mobilization - No pharmacological DVT prophylaxis due to intracranial bleed - Regular diet when cleared by speech therapy - Pepcid Critical Care: The total critical care time was 35 minutes. Time to perform other separately billable procedures was not included in the critical care time. Otis Crespo MD Jul 16, 2017 23:46
[2017-07-17] VITALS (8 sets, daily range): BP systolic 141–148; BP diastolic 64–71; PULSE 60–74; RESP 15–36; TEMP 98.4–98.8; O2SAT 95–97
[2017-07-17] MEDS ORDERED: LACTULOSE SYRUP 20 GM/30 ML CUP PO PRN
[2017-07-17] MEDS ORDERED: MAGNESIUM HYDROXIDE SUSP 30 ML CUP PO PRN
[2017-07-17] MEDS ORDERED: ACETAMINOPHEN 325 MG TAB PO PRN
[2017-07-17] MEDS ORDERED: ONDANSETRON HCL 4 MG/2 ML VIAL IV PUSH PRN
[2017-07-17] MEDS ORDERED: SODIUM CHLORIDE 0.9% FLUSH 10 ML FLUSH IV FLUSH PRN
[2017-07-17] MEDS ORDERED: MISCELLANEOUS NURSING INFORMATION XX SCH
[2017-07-17] MEDS ORDERED: RESP: ALBUTEROL 2.5 MG/IPRATROPIUM 0.5 MG NEB (PRN) INH
[2017-07-17] MEDS ORDERED: CHLORHEXIDINE GLUCONATE 2 % 1 PACK (2 CLOTHS) TOP PRN
[2017-07-17] MEDS ORDERED: BISACODYL 10 MG SUPP RECTAL PRN
[2017-07-17] MEDS ORDERED: SENNOSIDES 8.6 MG TAB PO PRN
[2017-07-17] MEDS ORDERED: CHLORHEXIDINE GLUCONATE 2 % 1 PACK (2 CLOTHS) TOP SCH ×2 (04:00)
--- NOTE | 2017-07-17 04:39 | RADRPT ---
EXAM DATE/TIME: 07/17/2017 04:22 [place] COMPARISON: CT BRAIN W/O CONTRAST, July 16, 2017, 16:26. INDICATIONS : Follow up hemorrhage. RADIATION DOSE: 31.29 CTDIvol (mGy) MEDICAL HISTORY : Hypertension. SURGICAL HISTORY : None. ENCOUNTER: Subsequent ACUITY: 1 day PAIN SCALE: 4/10 LOCATION: cranial TECHNIQUE: Multiple contiguous axial images were obtained of the head. Using automated exposure control and adj ustment of the mA and/or kV according to patient size, radiation dose was kept as low as reasonably a chievable to obtain optimal diagnostic quality images. DICOM format image data is available electro nically for review and comparison. FINDINGS: There is a stable right subdural hematoma measuring 1.2 cm without mass effect or midline shift. No a cute hemorrhage is seen. Posterior fossa structures are unremarkable. There is no evidence of acute c ortical infarction. There is also a thin subdural hygroma over the left cerebral convexity measuring no more than 5 mm. CONCLUSION: 1. Stable right subdural hematoma. No acute hemorrhage is identified. Wili Richardson MD on July 17, 2017 at 4:34 Board Certified Radiologist. This report was verified electronically.
[2017-07-17 04:44] LABS: AUTOMATED NEUTROPHIL # 5.3 TH/MM3 (1.8-7.7); BASOPHIL % 0.2 % (0.0-2.0); EOSINOPHIL # 0.2 TH/MM3 (0-0.4); EOSINOPHIL % 2.8 % (0.0-4.0); HEMATOCRIT 38.4 % (35.0-46.0); HEMO FLAGS DIFF FINAL; LYMPH % 22.1 % (9.0-44.0); LYMPHOCYTE # 1.8 TH/MM3 (1.0-4.8); MEAN CELL VOLUME 82.2 FL (80.0-100.0); MEAN CORPUSCULAR HEMOGLOBIN 27.4 PG (27.0-34.0); MEAN CORPUSCULAR HGB CONC 33.3 % (32.0-36.0); MONO % 10.3 % (0.0-8.0); NEUT % 64.6 % (16.0-70.0); PLATELET COUNT 232 TH/MM3 (150-450); RED BLOOD COUNT 4.67 MIL/MM3 (4.00-5.30); RED CELL DISTRIBUTION WIDTH 13.9 % (11.6-17.2); WHITE BLOOD COUNT 8.2 TH/MM3 (4.0-11.0)
[2017-07-17 04:47] LABS: PROTHROMBIN TIME - PATIENT 10.7 SEC (9.8-11.6)
[2017-07-17 05:04] LABS: ANION GAP 6 MEQ/L (5-15); AST (GOT) 16 U/L (15-37); BICARBONATE 27.3 MEQ/L (21.0-32.0); BLOOD UREA NITROGEN 13 MG/DL (7-18); CHLORIDE 107 MEQ/L (98-107); GLOMERULAR FILTRATION RATE 102 ML/MIN (>89); MAGNESIUM 2.1 MG/DL (1.5-2.5); POTASSIUM 3.6 MEQ/L (3.5-5.1); SODIUM (NA) 140 MEQ/L (136-145)
[2017-07-17 05:05] LABS: ALT (GPT) 18 U/L (10-53)
[2017-07-17 05:07] LABS: ALKALINE PHOSPHATASE 74 U/L (45-117); TOTAL BILIRUBIN ADULT 0.7 MG/DL (0.2-1.0)
[2017-07-17] MEDS ORDERED: SODIUM CHLORIDE 0.9% FLUSH 10 ML FLUSH IV FLUSH SCH (09:00)
[2017-07-17] MEDS ORDERED: DOCUSATE SODIUM 50 MG/SENNA 8.6 MG TAB PO SCH (09:00)
[2017-07-17] MEDS ORDERED: PANTOPRAZOLE SODIUM 40 MG VIAL IV PUSH SCH (09:00)
[2017-07-17] MEDS ORDERED: FAMOTIDINE 20 MG/2 ML VIAL IV PUSH SCH (09:00)
--- NOTE | 2017-07-17 11:08 | HHI.CCPN ---
Subjective Remarks/Hospital Course 87-year-old female who presented to [facility] emergency department after tripping fall. She states she tripped earlier today and landed on her knees and her chin. The patient is unsure if there was any loss of consciousness. No seizure activity. No tongue bitting. No incontinence of stool or urine. She had initially dizziness, but states the dizziness has resolved. She has an abrasion on the chin as well as a laceration and intraoral area, but denies any difficulty opening or closing the jaw. She does complain of a mild headache. She denies any neck pain, chest pain, shortness breath, nausea, abdominal pain, or difficulty moving her upper or lower extremities. The patient was able to ambulate after the accident. She denies any focal weaknes. Denies sensory loss. The CT of the head done in the emergency department revealed focal acute right-sided epidural hematoma along the mid right parietal lobe with 1.4 cm of separation. 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 07/17: Head CT today shows attenuated hematoma looking more like a subdural bleed. No skull fracture. Objective Vital Signs Date Time Temp Pulse Resp B/P (MAP) Pulse Ox O2 Delivery O2 Flow Rate FiO2 07/17/17 10:00 69 07/17/17 08:00 98.8 36 145/67 (93) 96 07/17/17 07:50 Nasal Cannula 2.00 Intake and Output 07/17/17 07/17/17 07/18/17 08:00 16:00 00:00 Intake Total 893 ml Balance 893 ml Result Diagram: 07/17/17 0407 07/17/17 0407 Objective Remarks GENERAL: Well-nourished, well-developed patient. SKIN: Warm and dry. HEAD: Normocephalic. EYES: No scleral icterus. No injection or drainage. NECK: Supple, trachea midline. No JVD or lymphadenopathy. CARDIOVASCULAR: Regular rate and rhythm without murmurs, gallops, or rubs. RESPIRATORY: Breath sounds equal bilaterally. No accessory muscle use. GASTROINTESTINAL: Abdomen soft, non-tender, nondistended. MUSCULOSKELETAL: No cyanosis, or edema. BACK: Nontender without obvious deformity. NEURO EXAM: GCS 15 ( M6 V5 E4 ) Mental Status: Alert and oriented to person, place, and time with clearspeech. Cranial Nerves: Visual acuity intact bilaterally. Visual mallory normal in all quadrants. Pupils are round, reactive to light. Extraocular movements are intact without ptosis. Hearing is normal bilaterally. Voice is normal. Tongue protrudes midline and moves symmetrically. Reflexes: Biceps, patellar, and Achilles are 2/4 bilaterally. No clonus or tremor. Sensation: Sensation is intact bilaterally to pain and light touch. Two-point discrimination is intact. Motor: Good muscle tone. Strength is 5/5 bilaterally. A/P Assessment and Plan Subdural hematoma, traumatic - No surgical intervention at this time - Neuro checks per unit protocol - PT and OT eval and treat as tolerated - Further management per neurosurgeon - Discharge home with instructions. Hygroma - Chronic - Supportive care Hypertension - Continue home dose Norvasc Anxiety - Escitalopram Dyslipidemia - Diet controlled DVT GI prophylaxis - Teds SCDs - Early aggressive mobilization - No pharmacological DVT prophylaxis due to intracranial bleed - Regular diet when cleared by speech therapy - Pepciwalker Overall impression: Talkative, cooperative, memory intact, GCS 15. Home today with a friend. Romeo Quiroga MD Jul 17, 2017 11:08
--- NOTE | 2017-07-17 11:12 | HHI.NSPN ---
Note Status Status: Progress Note Interval History Interval History This is a 87-year-old female who presents to [facility] emergency department after tripping fall. She states she tripped earlier today and landed on her knees and her chin. The patient is unsure if there was any loss of consciousness. No seizure activity. No tongue bitting. No incontinence of stool or urine. She had initially dizziness, but states the dizziness has resolved. She has an abrasion on the chin as well as a laceration and intraoral area, but denies any difficulty opening or closing the jaw. She does complain of a mild headache. She denies any neck pain, chest pain, shortness breath, nausea, abdominal pain, or difficulty moving her upper or lower extremities. The patient was able to ambulate after the accident. She denies any focal weaknes. Denies sensory loss. . Her primary physician is Dr. Hernandez. The patient's symptoms are mild, exacerbated after falling, and mostly self alleviating except for the laceration. The patient denies taking any anticoagulants including aspirin, Plavix, Coumadin, and new generation anticoagulants. 07/17: patient is doing well, denies headaches, focal weakness, nausea, vomiting , seizures. f/u CT Head completed this morning reports stable SDH. Labs, Micro, & Vital Signs Results Date Time Temp Pulse Resp B/P (MAP) Pulse Ox O2 Delivery O2 Flow Rate FiO2 07/17/17 10:00 69 07/17/17 08:00 74 07/17/17 08:00 98.8 74 36 145/67 (93) 96 07/17/17 07:50 97 Nasal Cannula 2.00 07/17/17 07:00 74 07/17/17 07:00 95 Nasal Cannula 2.00 07/17/17 06:00 68 07/17/17 04:00 98.5 60 20 148/71 (96) 95 07/17/17 04:00 60 07/17/17 02:00 62 07/17/17 00:00 98.4 60 15 141/64 (89) 97 07/17/17 00:00 60 07/16/17 22:00 62 07/16/17 20:00 62 07/16/17 20:00 98.1 62 17 144/67 (92) 94 07/16/17 19:31 20 07/16/17 19:00 94 Room Air 07/16/17 18:00 66 07/16/17 18:00 98.3 66 18 152/88 (109) 94 07/16/17 17:10 66 17 118/66 (83) 96 Room Air 07/16/17 15:54 98.0 72 16 156/70 (98) 95 Constitutional Vital Signs Date Time Temp Pulse Resp B/P (MAP) Pulse Ox O2 Delivery O2 Flow Rate FiO2 07/17/17 10:00 69 07/17/17 08:00 74 07/17/17 08:00 98.8 74 36 145/67 (93) 96 07/17/17 07:50 97 Nasal Cannula 2.00 07/17/17 07:00 74 07/17/17 07:00 95 Nasal Cannula 2.00 07/17/17 06:00 68 07/17/17 04:00 98.5 60 20 148/71 (96) 95 07/17/17 04:00 60 07/17/17 02:00 62 07/17/17 00:00 98.4 60 15 141/64 (89) 97 07/17/17 00:00 60 07/16/17 22:00 62 07/16/17 20:00 62 07/16/17 20:00 98.1 62 17 144/67 (92) 94 07/16/17 19:31 20 07/16/17 19:00 94 Room Air 07/16/17 18:00 66 07/16/17 18:00 98.3 66 18 152/88 (109) 94 07/16/17 17:10 66 17 118/66 (83) 96 Room Air 07/16/17 15:54 98.0 72 16 156/70 (98) 95 Physical Exam Ms. Puente is alert, awake and oriented to time, place and person. Speech is fluent. Follows commands without difficulties. Sitting up in chair, very pleasant and in no apparent distress. Conversing well. Mild bruising to her chin. Cranial nerve examination: pupils to be equal, round, and reactive to light. Extra-ocular movements are intact. Facial motor and sensory function are normal and symmetrical. Neck is soft and supple. Muscle strength is 5/5 in all muscle groups of both upper and lower extremities. Sensory examination is intact to light touch in both the upper and lower extremities, symmetrically. Cerebellar examination is intact to [id number] test. Medications Current Medications Current Medications Medications (Trade) Dose Ordered Sig/Hannah Route PRN Reason Start Time Stop Time Status Last Admin Dose Admin Morphine Sulfate (Morphine Inj) 2 mg Q2H PRN IV PUSH PAIN SCALE 6 TO 10 07/16/17 17:15 Pantoprazole Sodium (Protonix Inj) 40 mg DAILY IV PUSH 07/17/17 09:00 07/17/17 08:20 Albuterol/ Ipratropium (Duoneb Neb) 1 ampule Q4HR NEB PRN INH WHEEZING 07/16/17 17:15 Artificial Tears (Tears Naturale Opth Soln) 2 drop BID PRN EACH EYE DRY EYES 07/16/17 17:30 Amlodipine Besylate (Norvasc) 10 mg DAILY PO 07/17/17 09:00 Escitalopram Oxalate (Lexapro) 10 mg HS PO 07/17/17 21:00 Sodium Chloride 1,000 ml @ 84 mls/hr [id number] IV 07/16/17 23:50 07/17/17 00:00 Sodium Chloride (NS Flush) 2 ml UNSCH PRN IV FLUSH FLUSH AFTER USING IV ACCESS 07/17/17 00:00 Sodium Chloride (NS Flush) 2 ml BID IV FLUSH 07/17/17 09:00 07/17/17 08:20 Acetaminophen (Tylenol) 650 mg Q6H PRN PO PAIN 1-10 AND/OR FEVER >101F 07/17/17 00:00 Famotidine (Pepcid Inj) 20 mg Q12HR IV PUSH 07/17/17 09:00 Ondansetron HCl (Zofran Inj) 4 mg Q6H PRN IV PUSH NAUSEA OR VOMITING 07/17/17 00:00 Albuterol/ Ipratropium (Duoneb Neb) 1 ampule Q2HR NEB PRN INH WHEEZING 07/17/17 00:00 Miscellaneous Information 1 Q361D XX 07/17/17 00:00 07/17/17 00:46 Chlorhexidine Gluconate (Chlorhexidine 2% Cloth) 3 pack Taper DAILY@04 TOP 07/17/17 04:00 07/13/18 03:59 Chlorhexidine Gluconate (Chlorhexidine 2% Cloth) 3 pack UNSCH PRN TOP HYGIENIC CARE 07/17/17 00:00 Senna/Docusate Sodium (Coleen-Colace) 1 tab BID PO 07/17/17 09:00 07/17/17 08:20 Magnesium Hydroxide (Milk Of Magnesia Liq) 30 ml Q12H PRN PO Mild constipation 07/17/17 00:00 Sennosides (Senokot) 17.2 mg Q12H PRN PO Moderate constipation 07/17/17 00:00 Bisacodyl (Dulcolax Supp) 10 mg DAILY PRN RECTAL SEVERE CONSITIPATION 07/17/17 00:00 Lactulose (Lactulose Liq) 30 ml DAILY PRN PO SEVERE CONSITIPATION 07/17/17 00:00 Medical Decision Making MDM Remarks 87 year old female s/p trip and fall. CT Brain 07/16 with right parietal epidural hematoma, f/u CT Head 07/17 stable ICH nonfocal examination Plan Plan Remarks f/u CT Head reviewed by Dr. Ramos, nonoperative management neuro exam stable and nonfocal, clear to dc from NRS standpoint discussed with patient to avoid falls and head trauma nursing Clara Jack Jul 17, 2017 11:12
--- NOTE | 2017-07-17 11:12 | HHI.DS ---
Discharge Summary Admission Date Jul 16, 2017 at 16:56 Discharge Date: Jul 17, 2017 Admitting Diagnosis epidural hematoma, laceration lower lip (1) Traumatic subdural hematoma ICD Code: S06.5X9A - Traumatic subdural hemorrhage with loss of consciousness of unspecified duration, initial encounter Brief History 87-year-old female who presented to [facility] emergency department after tripping fall. She states she tripped earlier today and landed on her knees and her chin. The patient is unsure if there was any loss of consciousness. No seizure activity. No tongue bitting. No incontinence of stool or urine. She had initially dizziness, but states the dizziness has resolved. She has an abrasion on the chin as well as a laceration and intraoral area, but denies any difficulty opening or closing the jaw. She does complain of a mild headache. She denies any neck pain, chest pain, shortness breath, nausea, abdominal pain, or difficulty moving her upper or lower extremities. The patient was able to ambulate after the accident. She denies any focal weaknes. Denies sensory loss. The CT of the head done in the emergency department revealed focal acute right-sided epidural hematoma along the mid right parietal lobe with 1.4 cm of separation. 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 CBC/BMP: 07/17/17 0407 07/17/17 0407 Significant Findings Laboratory Tests Test 07/16/17 16:50 07/16/17 18:30 07/17/17 04:07 Mean Corpuscular Hemoglobin 26.8 PG (27.0-34.0) Neutrophils (%) (Auto) 72.1 % (16.0-70.0) Blood Urea Nitrogen 22 MG/DL (7-18) Monocytes (%) (Auto) 10.3 % (0.0-8.0) Calcium Level 8.4 MG/DL (8.5-10.1) Imaging Head CT: Old hygroma and new small right SDH. PE at Discharge Lugs: Clear. Neuro: O X 3, alert. M/S grossly intact. GCS 15 Transfer Summary 87 y/o woman fell and hit right side of head. Small right SDH developed with no neurological deficit. Home with instructions for care and followup. Hospital Course 87-year-old female who presented to [facility] emergency department after tripping fall. She states she tripped earlier today and landed on her knees and her chin. The patient is unsure if there was any loss of consciousness. No seizure activity. No tongue bitting. No incontinence of stool or urine. She had initially dizziness, but states the dizziness has resolved. She has an abrasion on the chin as well as a laceration and intraoral area, but denies any difficulty opening or closing the jaw. She does complain of a mild headache. She denies any neck pain, chest pain, shortness breath, nausea, abdominal pain, or difficulty moving her upper or lower extremities. The patient was able to ambulate after the accident. She denies any focal weaknes. Denies sensory loss. The CT of the head done in the emergency department revealed focal acute right-sided epidural hematoma along the mid right parietal lobe with 1.4 cm of separation. 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 07/17: Head CT today shows attenuated hematoma looking more like a subdural bleed. No skull fracture. Pt Condition on Discharge: Good Discharge Instructions Speech Therapy-Diet Recommends: Regular Romeo Quiroga MD Jul 17, 2017 11:12
[2017-07-17] MEDS ORDERED: ESCITALOPRAM OXALATE 10 MG TAB PO SCH ×2 (21:00)
== END 2017-07-17 11:42 | disposition home or self-care (01) | DRG 84 ==
LOC: PHED 15:49 → PHEDA 16:56 → N03B 18:19
PROVIDERS: ADMIT Anesthesiology; ATTEND Anesthesiology
PROC: 0HQ1XZZ Repair Face Skin, External Approach (ICD-10-PCS; principal; 2017-07-16)
DX: S06.5X9A Traumatic subdural hemorrhage with loss of consciousness of unspecified duration, initial encounter (principal); I10 Essential (primary) hypertension; F32.9 Major depressive disorder, single episode, unspecified; F41.9 Anxiety disorder, unspecified; M19.90 Unspecified osteoarthritis, unspecified site; S01.511A Laceration without foreign body of lip, initial encounter; W01.0XXA Fall on same level from slipping, tripping and stumbling without subsequent striking against object, initial encounter; S00.81XA Abrasion of other part of head, initial encounter; E78.00 Pure hypercholesterolemia, unspecified; K21.9 Gastro-esophageal reflux disease without esophagitis; K44.9 Diaphragmatic hernia without obstruction or gangrene; Z96.642 Presence of left artificial hip joint; Z96.653 Presence of artificial knee joint, bilateral; I25.10 Atherosclerotic heart disease of native coronary artery without angina pectoris; Y92.9 Unspecified place or not applicable
CPT/HCPCS: 70450; 80053; 83735; 84100; 85025; 85610; 85730; 86850; 86900; 86901; 87641; 90714; C9113; J7030

== ENCOUNTER 2017-07-23 16:18 | Inpatient (IN) | payer MEDICARE ==
[~2017-07-23] VITALS: Ht 167.6 cm; Wt 80.0 kg
[~2017-07-23 16:18] MED LIST changes: -ASPI1TAB69 PO; -CALTTAB PO; +ESCI10TA PO
[2017-07-23 16:22] VITALS: BP 124/59; PULSE 73; RESP 16; TEMP 98.4; O2SAT 95
[2017-07-23] MEDS ORDERED: ONDANSETRON HCL 4 MG/2 ML VIAL IV PUSH ONE (16:45)
[2017-07-23] MEDS ORDERED: MORPHINE SULFATE 2 MG/ML INJ IV PUSH ONE (16:45)
--- NOTE | 2017-07-23 17:59 | PD ---
HPI Chief Complaint: Headache Time Seen by Provider: 16:39 Travel History International Travel<30 days: No Contact w/Intl Traveler<30days: No Traveled to known affect area: No History of Present Illness HPI 87-year-old female that presents to the ED for evaluation of headache. Patient has a history of known subdural hematoma. Patient was admitted for this after she had a traumatic subdural hematoma. Patient was here for a day and was released. She states that ever since she still continues to have headaches but for the past today she's been feeling that the headaches are getting worse as well as having nausea. She states that she is taking Tylenol with minimal relief. She called her doctor today who recommended that she comes here to get evaluated. She denies any numbness, tilling, weakness. She takes no blood thinners. She denies any new injuries or traumas. Per patient the headaches are 10 out of 10. She denies any blurry vision or double vision but states that the pain goes through the left side of the face. Denies any allergies to medication. Denies any other medical issues. No back pain or neck pain. Has not seen her doctor since been discharged from here. PFSH Past Medical History Hx Anticoagulant Therapy: No Arthritis: Yes (mild) Autoimmune Disease: No Anxiety: Yes Depression: Yes Heart Rhythm Problems: Yes Cancer: No Cardiovascular Problems: No High Cholesterol: Yes Chemotherapy: No Diabetes: No Diminished Hearing: No Endocrine: No Gastrointestinal Disorders: Yes (GERD) GERD: Yes Genitourinary: No Hepatitis: No Hiatal Hernia: Yes Hypertension: Yes Immune Disorder: No Implanted Vascular Access Dvce: No Musculoskeletal: No Neurologic: No Psychiatric: Yes Reproductive: No Respiratory: No Radiation Therapy: No Thyroid Disease: No Menopausal: Yes Past Surgical History Abdominal Surgery: No AICD: No Arteriovenous Shunt: No Cardiac Surgery: No Ear Surgery: No Endocrine Surgery: No Eye Surgery: No Genitourinary Surgery: No Gynecologic Surgery: No Insulin Pump: No Joint Replacement: Yes Oral Surgery: No Pacemaker: No Thoracic Surgery: No Other Surgery: Yes Social History Alcohol Use: No Tobacco Use: No Substance Use: No Allergies-Medications (Allergen,Severity, Reaction): Coded Allergies: No Known Allergies (Verified , 12/24/16) Reported Meds & Prescriptions Reported Meds & Active Scripts Active Reported Alprazolam 0.25 Mg Tab 0.25 Mg PO BID PRN Escitalopram (Escitalopram Oxalate) 10 Mg Tab 10 Mg PO HS Amlodipine (Amlodipine Besylate) 10 Mg Tab 10 Mg PO DAILY Review of Systems Except as stated in HPI: all other systems reviewed are Neg Physical Exam Narrative GENERAL: SKIN: Warm and dry. HEAD: Atraumatic. Normocephalic. EYES: Pupils equal and round 4 mm reactive to light and accommodation. No scleral icterus. No injection or drainage. ENT: No nasal bleeding or discharge. Mucous membranes pink and moist. Tongue is midline. No uvula deviation. NECK: Trachea midline. No JVD. CARDIOVASCULAR: Regular rate and rhythm. No murmurs, S3, S4. RESPIRATORY: No accessory muscle use. Clear to auscultation. Breath sounds equal bilaterally. GASTROINTESTINAL: Abdomen soft, non-tender, nondistended. Hepatic and splenic margins not palpable. MUSCULOSKELETAL: Extremities without clubbing, cyanosis, or edema. No obvious deformities. Full range of motion of the upper and lower extremities bilaterally. 2+ pulses bilaterally. NEUROLOGICAL: Awake and alert. No obvious cranial nerve deficits. Motor grossly within normal limits. Five out of 5 muscle strength in the arms and legs. Normal speech. PSYCHIATRIC: Appropriate mood and affect; insight and judgment normal. Data Data Last Documented VS Vital Signs Date Time Temp Pulse Resp B/P (MAP) Pulse Ox O2 Delivery O2 Flow Rate FiO2 07/23/17 17:45 16 07/23/17 16:22 98.4 73 124/59 (80) 95 Orders Orders Complete Blood Count With Diff (07/23/17 16:44) Basic Metabolic Panel (Bmp) (07/23/17 16:44) Prothrombin Time / Inr (Pt) (07/23/17 16:44) Act Partial Throm Time (Ptt) (07/23/17 16:44) Ct Brain W/O Iv Contrast(Rout) (07/23/17 16:44) Iv Access Insert/Monitor (07/23/17 16:44) Ecg Monitoring (07/23/17 16:44) Oximetry (07/23/17 16:44) Morphine Inj (Morphine Inj) (07/23/17 16:45) Ondansetron Inj (Zofran Inj) (07/23/17 16:45) Oxygen Administration (07/23/17 18:21) Admit Order (Ed Use Only) (07/23/17 18:23) Consult Neurosurgery (07/23/17 ) Labs Laboratory Tests Test 07/23/17 17:25 White Blood Count 10.8 TH/MM3 Red Blood Count 4.94 MIL/MM3 Hemoglobin 13.7 GM/DL Hematocrit 40.6 % Mean Corpuscular Volume 82.2 FL Mean Corpuscular Hemoglobin 27.7 PG Mean Corpuscular Hemoglobin Concent 33.6 % Red Cell Distribution Width 13.8 % Platelet Count 304 TH/MM3 Mean Platelet Volume 8.0 FL Neutrophils (%) (Auto) 85.0 % Lymphocytes (%) (Auto) 11.7 % Monocytes (%) (Auto) 2.9 % Eosinophils (%) (Auto) 0.3 % Basophils (%) (Auto) 0.1 % Neutrophils # (Auto) 9.1 TH/MM3 Lymphocytes # (Auto) 1.3 TH/MM3 Monocytes # (Auto) 0.3 TH/MM3 Eosinophils # (Auto) 0.0 TH/MM3 Basophils # (Auto) 0.0 TH/MM3 CBC Comment DIFF FINAL Differential Comment Prothrombin Time 10.7 SEC Prothromb Time International Ratio 1.0 RATIO Activated Partial Thromboplast Time 24.7 SEC Blood Urea Nitrogen 12 MG/DL Creatinine 0.70 MG/DL Random Glucose 125 MG/DL Calcium Level 9.5 MG/DL Sodium Level 136 MEQ/L Potassium Level 3.7 MEQ/L Chloride Level 100 MEQ/L Carbon Dioxide Level 28.3 MEQ/L Anion Gap 8 MEQ/L Estimat Glomerular Filtration Rate 79 ML/MIN MDM Medical Decision Making Medical Screen Exam Complete: Yes Emergency Medical Condition: Yes Medical Record Reviewed: Yes Interpretation(s) Last Impressions Head CT 07/23/17 5524 Signed Impressions: Service Date/Time: Sunday, July 23, 2017 17:33 - CONCLUSION: 1. Enlarging right-sided subdural hygroma has almost doubled in depth since the prior exam. No ongoing hemorrhage, however. 2. There is now some mass effect on the adjacent cerebral hemisphere with worsening effacement of regional right-sided sulci, and narrowing of the ventricles as well as a 6 mm right to left subfalcine shift. 3. Slight increase in the CSF space overlying the left parietal convexity may represent a small chronic subdural in this location as well. Again, this appears to be slightly more prominent when compared to the prior Mustapha Jacob MD CBC & BMP Diagram 07/23/17 17:25 Calcium Level 9.5 Differential Diagnosis Worsening subdural hematoma versus new bleed versus cephalgia versus chronic pain versus neuropathy Narrative Course 87-year-old female that presents to the ED for evaluation of headache. Patient was properly examined and was found to have signs and symptoms consistent with appears to be headache. Unclear at this time but definite concerning for worsening bleeding as patient states that the pain seems to be getting worse and not better. Patient has been taking Tylenol minimal relief. Labs and imaging were ordered. She is neurovascular intact at this time. Patient was given IV pain medications and antiemetics. Labs and imaging did show worsening of the subdural hematoma with shifting of the brain. Patient still symptomatic. Case was discussed in my attending Dr. Mirza who was not aware of all findings and agrees with plan. I discussed this with Dr. Ramos from neurosurgery who agrees that patient isn't admitted to intensive a consult to him. Also was placed by me to him. Case discussed with the reports analyst Dr. Crespo who agrees to admission. Diagnosis Primary Impression: Traumatic subdural hematoma Qualified Codes: S06.5X9A - Traumatic subdural hemorrhage with loss of consciousness of unspecified duration, initial encounter Admitting Information Admitting Physician Requests: Admit Manuel Kramer Jul 23, 2017 17:59
--- NOTE | 2017-07-23 18:09 | RADRPT ---
EXAM DATE/TIME: 07/23/2017 17:33 [facility] COMPARISON: CT BRAIN W/O CONTRAST, July 17, 2017, 4:22. INDICATIONS : Increasing cephalgia and dizziness after fall 1 week ago. RADIATION DOSE: 34.14 CTDIvol (mGy) MEDICAL HISTORY : Hypertension. SURGICAL HISTORY : None. ENCOUNTER: Initial ACUITY: 1 day PAIN SCALE: 4/10 LOCATION: cranial TECHNIQUE: Multiple contiguous axial images were obtained of the head. Using automated exposure control and adj ustment of the mA and/or kV according to patient size, radiation dose was kept as low as reasonably a chievable to obtain optimal diagnostic quality images. DICOM format image data is available electro nically for review and comparison. FINDINGS: CEREBRUM: There is an enlarging right-sided subdural hygroma. An acute/subacute component in the high right par ietal convexity is stable but the depth is definitely increased previously measuring approximately 9. 5 mm and now measures 1.8 cm. This results in some effacement of the adjacent sulci with interval dev elopment of a 6 mm right to left subfalcine shift. There is also narrowing of the ventricular system which is new from the prior exam. The CSF space overlying the left parietal convexity is also somewha t more prominent possibly representing a subdural component on that side as well. No acute hemorrhage . POSTERIOR FOSSA: The cerebellum and brainstem are intact. The 4th ventricle is midline. The cerebellopontine angle i s unremarkable. EXTRACRANIAL: The visualized portion of the orbits is intact. SKULL: The calvaria is intact. No evidence of skull fracture. CONCLUSION: 1. Enlarging right-sided subdural hygroma has almost doubled in depth since the prior exam. No ongoin g hemorrhage, however. 2. There is now some mass effect on the adjacent cerebral hemisphere with worsening effacement of reg ional right-sided sulci, and narrowing of the ventricles as well as a 6 mm right to left subfalcine s hift. 3. Slight increase in the CSF space overlying the left parietal convexity may represent a small chron ic subdural in this location as well. Again, this appears to be slightly more prominent when compared to the prior Mustapha Jacob MD on July 23, 2017 at 18:01 Board Certified Radiologist. This report was verified electronically.
[2017-07-23 18:11] LABS: APTT (PATIENT) 24.7 SEC (24.3-30.1); PROTHROMBIN TIME - PATIENT 10.7 SEC (9.8-11.6)
[2017-07-23 18:31] LABS: AUTOMATED NEUTROPHIL # 9.1 TH/MM3 (1.8-7.7); BASOPHIL % 0.1 % (0.0-2.0); EOSINOPHIL % 0.3 % (0.0-4.0); HEMATOCRIT 40.6 % (35.0-46.0); HEMO FLAGS DIFF FINAL; LYMPH % 11.7 % (9.0-44.0); LYMPHOCYTE # 1.3 TH/MM3 (1.0-4.8); MEAN CELL VOLUME 82.2 FL (80.0-100.0); MEAN CORPUSCULAR HEMOGLOBIN 27.7 PG (27.0-34.0); MEAN CORPUSCULAR HGB CONC 33.6 % (32.0-36.0); MONO % 2.9 % (0.0-8.0); PLATELET COUNT 304 TH/MM3 (150-450); RED BLOOD COUNT 4.94 MIL/MM3 (4.00-5.30); RED CELL DISTRIBUTION WIDTH 13.8 % (11.6-17.2); WHITE BLOOD COUNT 10.8 TH/MM3 (4.0-11.0)
[2017-07-23 18:32] LABS: BICARBONATE 28.3 MEQ/L (21.0-32.0); POTASSIUM 3.7 MEQ/L (3.5-5.1)
[2017-07-23 18:33] VITALS: BP 161/72; PULSE 78; RESP 17; O2SAT 95
[2017-07-23] MEDS ORDERED: ALPR0.25 PO (18:33)
[2017-07-23] MEDS ORDERED: CHLORHEXIDINE GLUCONATE 2 % 1 PACK (2 CLOTHS) TOP PRN (19:00)
[2017-07-23] MEDS ORDERED: ZOLPIDEM TARTRATE 5 MG TAB PO PRN (19:00)
[2017-07-23] MEDS ORDERED: LACTULOSE SYRUP 20 GM/30 ML CUP PO PRN (19:00)
[2017-07-23] MEDS ORDERED: MISCELLANEOUS NURSING INFORMATION XX SCH (19:00)
[2017-07-23] MEDS ORDERED: RESP: ALBUTEROL 2.5 MG/IPRATROPIUM 0.5 MG NEB (PRN) INH (19:00)
[2017-07-23] MEDS ORDERED: ALPRAZolam 0.25 MG TAB PO PRN (19:00)
[2017-07-23] MEDS ORDERED: ACETAMINOPHEN 325 MG TAB PO PRN (19:00)
[2017-07-23] MEDS ORDERED: BISACODYL 10 MG SUPP RECTAL PRN (19:00)
[2017-07-23] MEDS ORDERED: MAGNESIUM HYDROXIDE SUSP 30 ML CUP PO PRN (19:00)
[2017-07-23] MEDS ORDERED: SENNOSIDES 8.6 MG TAB PO PRN (19:00)
[2017-07-23] MEDS ORDERED: SODIUM CHLORIDE 0.9% FLUSH 10 ML FLUSH IV FLUSH PRN (19:00)
[2017-07-23] MEDS: HYDROmorphone HCL PF 0.5 MG/0.5 ML SYRINGE IV PRN (19:31)
[2017-07-23] MEDS: SODIUM CHLOR 0.9% 1000 ML INJ 1,000 ML IV SCH (19:31)
[2017-07-23 19:33] VITALS: O2SAT 94
[2017-07-23 19:41] VITALS: BP 147/103; PULSE 74; RESP 14; O2SAT 95
--- NOTE | 2017-07-23 20:35 | PD.CONS ---
[facility] Service Critical Care Medicine Consult Requested By Primary Care Physician Wili Hernandez MD History of Present Illness 87-year-old female presents for evaluation of headache. Patient has a history of known subdural hematoma as she was admitted for this after she had a traumatic subdural hematoma. Patient was here for a day and was released. She states that since being discharged she still continues to have headaches but today she's been feeling that the headaches are getting worse as well as having nausea. She states that she is taking Tylenol with minimal relief. She called her doctor today who recommended that she comes here to get evaluated. She denies any numbness, tilling, weakness. She takes no blood thinners. She denies any new injuries or traumas. CT of the head performed in the emergency department shows Enlarging right-sided subdural hygroma has almost doubled in depth since the prior exam. No ongoing hemorrhage, however. There is now some mass effect on the adjacent cerebral hemisphere with worsening effacement of regional right-sided sulci, and narrowing of the ventricles as well as a 6 mm right to left subfalcine shift. Review of Systems Constitutional: COMPLAINS OF: Fatigue, Dizziness, DENIES: Diaphoretic episodes , Fever, Weight gain, Weight loss, Chills, Change in appetite, Night Sweats Endocrine: DENIES: Abnorml menstrual pattern, Heat/cold intolerance, Polydipsia , Polyuria, Polyphagia Eyes: DENIES: Blurred vision, Diplopia, Eye inflammation, Eye pain, Vision loss , Photosensitivity, Double Vision Ears, nose, mouth, throat: DENIES: Tinnitus, Hearing loss, Vertigo, Nasal discharge, Oral lesions, Throat pain, Hoarseness, Ear Pain, Running Nose, Epistaxis, Sinus Pain, Toothache, Odynophagia Respiratory: DENIES: Apneas, Cough, Snoring, Wheezing, Hemoptysis, Sputum production, Shortness of breath Cardiovascular: DENIES: Chest pain, Palpitations, Syncope, Dyspnea on Exertion , PND, Lower Extremity Edema, Orthopnea, Claudication Gastrointestinal: DENIES: Abdominal pain, Black stools, Bloody stools, Constipation, Diarrhea, Nausea, Vomiting, Difficulty Swallowing, Anorexia Genitourinary: DENIES: Abnormal vaginal bleeding, Dysmenorrhea, Dyspareunia, Sexual dysfunction, Urinary frequency, Urinary incontinence, Urgency, Hematuria , Dysuria, Nocturia, Vaginal discharge Musculoskeletal: DENIES: Joint pain, Muscle aches, Stiffness, Joint Swelling, Back pain, Neck pain Integumentary: DENIES: Abnormal pigmentation, Pruritus, Rash, Nail changes, Breast masses, Breast skin changes, Nipple discharge Immunologic/allergic: DENIES: Eczema, Urticaria Neurologic: COMPLAINS OF: Headache, DENIES: Abnormal gait, Localized weakness, Paresthesias, Seizures, Speech Problems, Tremor, Poor Balance Psychiatric: DENIES: Anxiety, Confusion, Mood changes, Depression, Hallucinations, Agitation, Suicidal Ideation, Homicidal Ideation, Delusions Past Family Social History Allergies: Coded Allergies: No Known Allergies (Verified , 12/24/16) Past Medical History Hypertension Dyslipidemia Coronary artery disease Past Surgical History Bilateral knee arthroplasty Left hip arthroplasty Reported Medications Reported Meds & Active Scripts Active Reported Alprazolam 0.25 Mg Tab 0.25 Mg PO BID PRN Escitalopram (Escitalopram Oxalate) 10 Mg Tab 10 Mg PO HS Amlodipine (Amlodipine Besylate) 10 Mg Tab 10 Mg PO DAILY Active Ordered Medications Current Medications Medications (Trade) Dose Ordered Sig/Hannah Route PRN Reason Start Time Stop Time Status Last Admin Dose Admin Alprazolam (Xanax) 0.25 mg BID PRN PO ANXIETY 07/23/17 19:00 Amlodipine Besylate (Norvasc) 10 mg DAILY PO 07/24/17 09:00 Escitalopram Oxalate (Lexapro) 10 mg HS PO 07/23/17 21:00 07/23/17 22:08 Sodium Chloride 1,000 ml @ 84 mls/hr [id number] IV 07/23/17 18:50 07/23/17 19:31 Sodium Chloride (NS Flush) 2 ml UNSCH PRN IV FLUSH FLUSH AFTER USING IV ACCESS 07/23/17 19:00 Sodium Chloride (NS Flush) 2 ml BID IV FLUSH 07/23/17 21:00 07/23/17 22:09 Acetaminophen (Tylenol) 650 mg Q6H PRN PO PAIN 1-5 AND/OR FEVER >101F 07/23/17 19:00 Hydromorphone HCl (Dilaudid Pf Inj) 0.5 mg Q4H PRN IV PAIN SCALE 6 TO 10 07/23/17 19:30 07/23/17 19:31 Famotidine (Pepcid Inj) 20 mg Q12HR IV PUSH 07/23/17 21:00 07/23/17 22:09 Ondansetron HCl (Zofran Inj) 4 mg Q6H PRN IV PUSH NAUSEA OR VOMITING 07/23/17 19:00 Zolpidem Tartrate (Ambien) 5 mg HS PRN PO INSOMNIA 07/23/17 19:00 Albuterol/ Ipratropium (Duoneb Neb) 1 ampule Q2HR NEB PRN INH WHEEZING 07/23/17 19:00 Miscellaneous Information 1 Q361D XX 07/23/17 19:00 Chlorhexidine Gluconate (Chlorhexidine 2% Cloth) 3 pack Taper DAILY@04 TOP 07/24/17 04:00 07/20/18 03:59 Chlorhexidine Gluconate (Chlorhexidine 2% Cloth) 3 pack UNSCH PRN [facility]GIEN[facility] 07/23/17 19:00 Senna/Docusate Sodium (Coleen-Colace) 1 tab BID PO 07/23/17 21:00 07/23/17 22:08 Magnesium Hydroxide (Milk Of Magnesia Liq) 30 ml Q12H PRN PO Mild constipation 07/23/17 19:00 Sennosides (Senokot) 17.2 mg Q12H PRN PO Moderate constipation 07/23/17 19:00 Bisacodyl (Dulcolax Supp) 10 mg DAILY PRN RECTAL SEVERE CONSITIPATION 07/23/17 19:00 Lactulose (Lactulose Liq) 30 ml DAILY PRN PO SEVERE CONSITIPATION 07/23/17 19:00 Family History No family history of early coronary artery disease Social History Denies history of alcohol tobacco or illicit drug Physical Exam Vital Signs Vital Signs Date Time Temp Pulse Resp B/P (MAP) Pulse Ox O2 Delivery O2 Flow Rate FiO2 07/23/17 19:41 74 14 147/103 (118) 95 Room Air 07/23/17 18:33 78 17 161/72 (101) 95 Nasal Cannula 3.00 07/23/17 18:26 94 Nasal Cannula 3.00 07/23/17 17:45 16 07/23/17 16:22 98.4 73 16 124/59 (80) 95 Physical Exam GENERAL: Well-nourished, well-developed patient. Elderly female complaining of headaches SKIN: Warm and dry. HEAD: Normocephalic. EYES: No scleral icterus. No injection or drainage. NECK: Supple, trachea midline. No JVD or lymphadenopathy. CARDIOVASCULAR: Regular rate and rhythm without murmurs, gallops, or rubs. RESPIRATORY: Breath sounds equal bilaterally. No accessory muscle use. GASTROINTESTINAL: Abdomen soft, non-tender, nondistended. MUSCULOSKELETAL: No cyanosis, or edema. BACK: Nontender without obvious deformity. NEURO EXAM: GCS: M 6 V 5 E 4 Mental Status: The patient is alert and oriented to person, place, and time with normal speech. Cranial Nerves: Visual acuity intact bilaterally. Visual mallory normal in all quadrants. Pupils are round, reactive to light. Extraocular movements are intact without ptosis. Hearing is normal bilaterally. Voice is normal. Tongue protrudes midline and moves symmetrically. Reflexes: Biceps, patellar, and Achilles are 2/4 bilaterally. No clonus. Laboratory Laboratory Tests Test 07/23/17 17:25 White Blood Count 10.8 Red Blood Count 4.94 Hemoglobin 13.7 Hematocrit 40.6 Mean Corpuscular Volume 82.2 Mean Corpuscular Hemoglobin 27.7 Mean Corpuscular Hemoglobin Concent 33.6 Red Cell Distribution Width 13.8 Platelet Count 304 Mean Platelet Volume 8.0 Neutrophils (%) (Auto) 85.0 Lymphocytes (%) (Auto) 11.7 Monocytes (%) (Auto) 2.9 Eosinophils (%) (Auto) 0.3 Basophils (%) (Auto) 0.1 Neutrophils # (Auto) 9.1 Lymphocytes # (Auto) 1.3 Monocytes # (Auto) 0.3 Eosinophils # (Auto) 0.0 Basophils # (Auto) 0.0 CBC Comment DIFF FINAL Differential Comment Prothrombin Time 10.7 Prothromb Time International Ratio 1.0 Activated Partial Thromboplast Time 24.7 Blood Urea Nitrogen 12 Creatinine 0.70 Random Glucose 125 Calcium Level 9.5 Sodium Level 136 Potassium Level 3.7 Chloride Level 100 Carbon Dioxide Level 28.3 Anion Gap 8 Estimat Glomerular Filtration Rate 79 Result Diagram: 07/23/17 1725 07/23/17 1725 Imaging Last [address] 07/23/17 1644 Signed Impressions: Service Date/Time: Sunday, July 23, 2017 17:33 - CONCLUSION: 1. Enlarging right-sided subdural hygroma has almost doubled in depth since the prior exam. No ongoing hemorrhage, however. 2. There is now some mass effect on the adjacent cerebral hemisphere with worsening effacement of regional right-sided sulci, and narrowing of the ventricles as well as a 6 mm right to left subfalcine shift. 3. Slight increase in the CSF space overlying the left parietal convexity may represent a small chronic subdural in this location as well. Again, this appears to be slightly more prominent when compared to the prior Mustapha Jacob MD Assessment and Plan Assessment and Plan Subdural hematoma - Admit to neuro ICU - Neuro checks per unit protocol - Pain management - Management per neurosurgery Coronary artery disease - Hold and antiplatelets due to acute ICH - No acute event - Telemetry - Supportive care Hypertension - Hydralazine and labetalol when necessary - SBP goal less than 150 Dyslipidemia - Resume home meds while nothing by mouth DVT GI prophylaxis - Teds SCDs - No pharmacological DVT prophylaxis due to subdural hematoma - Pepcid Critical Care: The total critical care time was 35 minutes. Time to perform other separately billable procedures was not included in the critical care time. Otis Crespo MD Jul 23, 2017 8:35 pm
--- NOTE | 2017-07-23 21:06 | PD.CONS ---
[facility] Service Neurosurgery Consult Requested By Daryl GIBBS Reason for Consult Subdural hematoma Primary Care Physician Wili Hernandez MD History of Present Illness This is a 87-year-old female with history of known subdural hematoma as she was admitted for this after she had a traumatic subdural hematoma. Patient was here for a day and was released home. She states that since being discharged she still continues to have headaches but today she's been feeling that the headaches are getting progressively worse. Domo has developed nauseas and emesis. She states that she is taking Tylenol with minimal relief. She called her doctor today who recommended that she comes here to get evaluated. She denies any numbness, tilling, weakness. She takes no blood thinners. She denies any new injuries or traumas. CT of the head performed in the emergency department shows Enlarging right-sided subdural hygroma has almost doubled in size, with mass effect on the adjacent cerebral hemisphere with worsening effacement of regional right-sided sulci, and narrowing of the ventricles as well as a 6 mm right to left subfalcine shift. Neurosurgery consultation was requested Review of Systems Constitutional: COMPLAINS OF: Fatigue, Dizziness, DENIES: Diaphoretic episodes , Fever, Weight gain, Weight loss, Chills, Change in appetite, Night Sweats Endocrine: DENIES: Abnorml menstrual pattern, Heat/cold intolerance, Polydipsia , Polyuria, Polyphagia Eyes: DENIES: Blurred vision, Diplopia, Eye inflammation, Eye pain, Vision loss , Photosensitivity, Double Vision Ears, nose, mouth, throat: DENIES: Tinnitus, Hearing loss, Vertigo, Nasal discharge, Oral lesions, Throat pain, Hoarseness, Ear Pain, Running Nose, Epistaxis, Sinus Pain, Toothache, Odynophagia Respiratory: DENIES: Apneas, Cough, Snoring, Wheezing, Hemoptysis, Sputum production, Shortness of breath Cardiovascular: DENIES: Chest pain, Palpitations, Syncope, Dyspnea on Exertion , PND, Lower Extremity Edema, Orthopnea, Claudication Gastrointestinal: DENIES: Abdominal pain, Black stools, Bloody stools, Constipation, Diarrhea, Nausea, Vomiting, Difficulty Swallowing, Anorexia Genitourinary: DENIES: Abnormal vaginal bleeding, Dysmenorrhea, Dyspareunia, Sexual dysfunction, Urinary frequency, Urinary incontinence, Urgency, Hematuria , Dysuria, Nocturia, Vaginal discharge Musculoskeletal: DENIES: Joint pain, Muscle aches, Stiffness, Joint Swelling, Back pain, Neck pain Integumentary: DENIES: Abnormal pigmentation, Pruritus, Rash, Nail changes, Breast masses, Breast skin changes, Nipple discharge Immunologic/allergic: DENIES: Eczema, Urticaria Neurologic: COMPLAINS OF: Headache, DENIES: Abnormal gait, Localized weakness, Paresthesias, Seizures, Speech Problems, Tremor, Poor Balance Psychiatric: DENIES: Anxiety, Confusion, Mood changes, Depression, Hallucinations, Agitation, Suicidal Ideation, Homicidal Ideation, Delusions Past Family Social History Allergies: Coded Allergies: No Known Allergies (Verified , 12/24/16) Past Medical History Arthritis: Yes (mild) Anxiety: Yes Depression: Yes Heart Rhythm Problems: Yes Cancer: No Cardiovascular Problems: Yes ("SKIPS A BEAT") High Cholesterol: Yes Diabetes: No Diminished Hearing: No Endocrine: No Gastrointestinal Disorders: Yes (GERD) GERD: Yes Genitourinary: No Hepatitis: No Hiatal Hernia: Yes Hypertension: Yes Immune Disorder: No Implanted Vascular Access Dvce: No Musculoskeletal: Yes (OA) Neurologic: Yes (VERTIGO) Psychiatric: Yes (DEPRESSION, ANXIETY Reproductive: No Respiratory: No Thyroid Disease: No Influenza Vaccination: Yes Menopausal: Yes Past Surgical History AICD: No Eye Surgery: Yes (sera cataract) Genitourinary Surgery: Yes (cystoscopy) Joint Replacement: Yes (LEFT KNEE) Oral Surgery: Yes (T & A) Pacemaker: No Reported Medications Systane Opth Drops (Polyethylene Glycol-Propylene Glycol Opth Drp) 0.4-0.3% Soln 1-2 Drop EACH EYE BID PRN Amlodipine (Amlodipine Besylate) 10 Mg Tab 10 Mg PO DAILY Active Ordered Medications Current Medications Morphine Sulfate (Morphine Inj) 2 mg ONCE ONCE IV PUSH Last administered on 17:31; Start 07/23/17 at 16:45; Stop 07/23/17 at 16:46; Status DC Ondansetron HCl (Zofran Inj) 4 mg ONCE ONCE IV PUSH Last administered on 07/23 17:30; Start 07/23/17 at 16:45; Stop 07/23/17 at 16:46; Status DC Alprazolam (Xanax) 0.25 mg BID PRN PO ANXIETY; Start 07/23/17 at 19:00 Amlodipine Besylate (Norvasc) 10 mg DAILY PO ; Start 07/24/17 at 09:00 Escitalopram Oxalate (Lexapro) 10 mg HS PO ; Start 07/23/17 at 21:00 Sodium Chloride 1,000 ml @ 84 mls/hr [id number] IV Last administered on 19:31; Start 07/23/17 at 18:50 Sodium Chloride (NS Flush) 2 ml UNSCH PRN IV FLUSH FLUSH AFTER USING IV ACCESS ; Start 07/23/17 at 19:00 Sodium Chloride (NS Flush) 2 ml BID IV FLUSH ; Start 07/23/17 at 21:00 Acetaminophen (Tylenol) 650 mg Q6H PRN PO PAIN 1-5 AND/OR FEVER >101F; Start 07/23/17 at 19:00 Hydromorphone HCl (Dilaudid Pf Inj) 0.5 mg Q4H PRN IV PAIN SCALE 6 TO 10 Last administered on 07/23/17 19:31; Start 07/23/17 at 19:30 Famotidine (Pepcid Inj) 20 mg Q12HR IV PUSH ; Start 07/23/17 at 21:00 Ondansetron HCl (Zofran Inj) 4 mg Q6H PRN IV PUSH NAUSEA OR VOMITING; Start at 19:00 Zolpidem Tartrate (Ambien) 5 mg HS PRN PO INSOMNIA; Start 07/23/17 at 19:00 Albuterol/ Ipratropium (Duoneb Neb) 1 ampule Q2HR NEB PRN INH WHEEZING; Start 07/23/17 at 19:00 Miscellaneous Information 1 Q361D XX ; Start 07/23/17 at 19:00 Chlorhexidine Gluconate (Chlorhexidine 2% Cloth) 3 pack Taper DAILY@04 TOP ; Start 07/24/17 at 04:00; Stop 07/20/18 at 03:59 Chlorhexidine Gluconate (Chlorhexidine 2% Cloth) 3 pack UNSCH PRN [facility]GIENIC C[facility]; Start 07/23/17 at 19:00 Senna/Docusate Sodium (Coleen-Colace) 1 tab BID PO ; Start 07/23/17 at 21:00 Magnesium Hydroxide (Milk Of Magnesia Liq) 30 ml Q12H PRN PO Mild constipation ; Start 07/23/17 at 19:00 Sennosides (Senokot) 17.2 mg Q12H PRN PO Moderate constipation; Start at 19:00 Bisacodyl (Dulcolax Supp) 10 mg DAILY PRN RECTAL SEVERE CONSITIPATION; Start 07/23/17 at 19:00 Lactulose (Lactulose Liq) 30 ml DAILY PRN PO SEVERE CONSITIPATION; Start 07/23 at 19:00 Family History Her family history was reviewed and was noncontributory to this traumatic event Social History Alcohol Use: No Tobacco Use: No Substance Use: No Physical Exam Vital Signs Vital Signs Date Time Temp Pulse Resp B/P (MAP) Pulse Ox O2 Delivery O2 Flow Rate FiO2 07/23/17 19:41 74 14 147/103 (118) 95 Room Air 07/23/17 18:33 78 17 161/72 (101) 95 Nasal Cannula 3.00 07/23/17 18:26 94 Nasal Cannula 3.00 07/23/17 17:45 16 07/23/17 16:22 98.4 73 16 124/59 (80) 95 Laboratory Laboratory Tests Test 07/23/17 17:25 White Blood Count 10.8 Red Blood Count 4.94 Hemoglobin 13.7 Hematocrit 40.6 Mean Corpuscular Volume 82.2 Mean Corpuscular Hemoglobin 27.7 Mean Corpuscular Hemoglobin Concent 33.6 Red Cell Distribution Width 13.8 Platelet Count 304 Mean Platelet Volume 8.0 Neutrophils (%) (Auto) 85.0 Lymphocytes (%) (Auto) 11.7 Monocytes (%) (Auto) 2.9 Eosinophils (%) (Auto) 0.3 Basophils (%) (Auto) 0.1 Neutrophils # (Auto) 9.1 Lymphocytes # (Auto) 1.3 Monocytes # (Auto) 0.3 Eosinophils # (Auto) 0.0 Basophils # (Auto) 0.0 CBC Comment DIFF FINAL Differential Comment Prothrombin Time 10.7 Prothromb Time International Ratio 1.0 Activated Partial Thromboplast Time 24.7 Blood Urea Nitrogen 12 Creatinine 0.70 Random Glucose 125 Calcium Level 9.5 Sodium Level 136 Potassium Level 3.7 Chloride Level 100 Carbon Dioxide Level 28.3 Anion Gap 8 Estimat Glomerular Filtration Rate 79 Result Diagram: 07/23/17 1725 07/23/17 1725 Imaging Last [address] 07/23/17 1644 Signed Impressions: Service Date/Time: Sunday, July 23, 2017 17:33 - CONCLUSION: 1. Enlarging right-sided subdural hygroma has almost doubled in depth since the prior exam. No ongoing hemorrhage, however. 2. There is now some mass effect on the adjacent cerebral hemisphere with worsening effacement of regional right-sided sulci, and narrowing of the ventricles as well as a 6 mm right to left subfalcine shift. 3. Slight increase in the CSF space overlying the left parietal convexity may represent a small chronic subdural in this location as well. Again, this appears to be slightly more prominent when compared to the prior Mustapha Jacob MD Attending Statement Subdural hematoma. A surgical decompression via a kristy hole is recommended. We have discussed the details including the [id number] details of the surgical procedure, its indications, alternatives, risks, and potential complications. Risks and potential complications include, but are not limited to, infection, blood loss, CSF leak, partial or complete loss of sight in one or both eyes, paresis, paralysis, permanent pain or difficulty swallowing, loss of bowel or bladder function, complications from anesthesia, blood clot, stroke, myocardial infarction, or even . Pulmonary.. Continue aggressive pulmonary toilette, nasotracheal suction, and breathing treatments with nebulizers. Nutrition. NPO Renal. monitor closely urine output, BUN and creatinine Fernandez in place. Monitor intake and output. Monitor electrolytes and replace as indicated per ICU electrolyte replacement protocol. ENDO:Acute hyperglycemia secondary to trauma. Monitor bedside glucose and initiate low-dose insulin sliding scale as indicated for glucose greater than 180 Protonix for stress ulcer prophylaxis Alonzo hose and SCD's for DVT prophylaxis. Yonatan Ramos MD Jul 23, 2017 21:06
[2017-07-23 21:15] VITALS: BP 127/61; PULSE 80; RESP 18; TEMP 98.3; O2SAT 96
[2017-07-23 22:00] VITALS: PULSE 80
[2017-07-23] MEDS: DOCUSATE SODIUM 50 MG/SENNA 8.6 MG TAB PO SCH (22:08)
[2017-07-23] MEDS: ESCITALOPRAM OXALATE 10 MG TAB PO SCH (22:08)
[2017-07-23] MEDS: FAMOTIDINE 20 MG/2 ML VIAL IV PUSH SCH (22:09)
[2017-07-23] MEDS: SODIUM CHLORIDE 0.9% FLUSH 10 ML FLUSH IV FLUSH SCH (22:09)
[2017-07-24] VITALS (15 sets, daily range): BP systolic 116–165; BP diastolic 57–73; PULSE 58–104; RESP 13–22; TEMP 97.8–98.6; O2SAT 93–100
[2017-07-24] MEDS ORDERED: hydrALAZINE HCL 20 MG/ML VIAL IV PUSH PRN (04:00)
[2017-07-24] MEDS: CHLORHEXIDINE GLUCONATE 2 % 1 PACK (2 CLOTHS) TOP SCH (04:00)
[2017-07-24 04:45] LABS: AUTOMATED NEUTROPHIL # 5.7 TH/MM3 (1.8-7.7); BASOPHIL % 0.5 % (0.0-2.0); EOSINOPHIL % 0.5 % (0.0-4.0); HEMATOCRIT 36.5 % (35.0-46.0); HEMO FLAGS DIFF FINAL; LYMPH % 23.5 % (9.0-44.0); LYMPHOCYTE # 2.1 TH/MM3 (1.0-4.8); MEAN CELL VOLUME 81.9 FL (80.0-100.0); MEAN CORPUSCULAR HGB CONC 34.2 % (32.0-36.0); MONO % 10.8 % (0.0-8.0); NEUT % 64.7 % (16.0-70.0); PLATELET COUNT 264 TH/MM3 (150-450); RED BLOOD COUNT 4.45 MIL/MM3 (4.00-5.30); RED CELL DISTRIBUTION WIDTH 13.8 % (11.6-17.2); WHITE BLOOD COUNT 8.8 TH/MM3 (4.0-11.0)
[2017-07-24 05:11] LABS: ANION GAP 7 MEQ/L (5-15); AST (GOT) 13 U/L (15-37); BICARBONATE 28.3 MEQ/L (21.0-32.0); BLOOD UREA NITROGEN 12 MG/DL (7-18); CHLORIDE 102 MEQ/L (98-107); GLOMERULAR FILTRATION RATE 91 ML/MIN (>89); POTASSIUM 3.4 MEQ/L (3.5-5.1); SODIUM (NA) 137 MEQ/L (136-145)
[2017-07-24 05:12] LABS: ALT (GPT) 14 U/L (10-53)
[2017-07-24 05:14] LABS: ALKALINE PHOSPHATASE 72 U/L (45-117); TOTAL BILIRUBIN ADULT 0.6 MG/DL (0.2-1.0)
[2017-07-24] MEDS: SODIUM CHLOR 0.9% 1000 ML INJ 1,000 ML IV SCH (06:45)
--- NOTE | 2017-07-24 08:40 | HHI.CCPN ---
Subjective Remarks/Hospital Course 87-year-old female presents for evaluation of headache. Patient has a history of known subdural hematoma as she was admitted for this after she had a traumatic subdural hematoma. Patient was here for a day and was released. She states that since being discharged she still continues to have headaches but today she's been feeling that the headaches are getting worse as well as having nausea. She states that she is taking Tylenol with minimal relief. She called her doctor today who recommended that she comes here to get evaluated. She denies any numbness, tilling, weakness. She takes no blood thinners. She denies any new injuries or traumas. CT of the head performed in the emergency department shows Enlarging right-sided subdural hygroma has almost doubled in depth since the prior exam. No ongoing hemorrhage, however. There is now some mass effect on the adjacent cerebral hemisphere with worsening effacement of regional right-sided sulci, and narrowing of the ventricles as well as a 6 mm right to left subfalcine shift. 07/24: Markedly enlarged right subdural hygroma with worsening headache. Speech clear, mildly confused. Patient well known to us - typically lucid and talkative. Objective Vital Signs Date Time Temp Pulse Resp B/P (MAP) Pulse Ox O2 Delivery O2 Flow Rate FiO2 07/24/17 07:00 98.5 104 15 116/58 (77) 100 07/24/17 07:00 Nasal Cannula 2.00 Intake and Output 07/24/17 07/24/17 07/25/17 08:00 16:00 00:00 Output Total 622 ml Balance -622 ml Result Diagram: 07/24/17 0403 07/24/17 0403 Imaging Last [address] 07/23/17 1644 Signed Impressions: Service Date/Time: Sunday, July 23, 2017 17:33 - CONCLUSION: 1. Enlarging right-sided subdural hygroma has almost doubled in depth since the prior exam. No ongoing hemorrhage, however. 2. There is now some mass effect on the adjacent cerebral hemisphere with worsening effacement of regional right-sided sulci, and narrowing of the ventricles as well as a 6 mm right to left subfalcine shift. 3. Slight increase in the CSF space overlying the left parietal convexity may represent a small chronic subdural in this location as well. Again, this appears to be slightly more prominent when compared to the prior Mustapha Jacob MD Objective Remarks GENERAL: Well-nourished, well-developed patient. Elderly female complaining of headaches SKIN: Warm and dry. HEAD: Normocephalic. EYES: No scleral icterus. No injection or drainage. NECK: Supple, trachea midline. No JVD or lymphadenopathy. CARDIOVASCULAR: Regular rate and rhythm without murmurs, gallops, or rubs. RESPIRATORY: Breath sounds equal bilaterally. No accessory muscle use. GASTROINTESTINAL: Abdomen soft, non-tender, nondistended. MUSCULOSKELETAL: No cyanosis, or edema. BACK: Nontender without obvious deformity. NEURO EXAM: Alert and oriented to person, place, and time with normal speech. Visual acuity intact bilaterally. Visual mallory normal in all quadrants. Pupils are round, reactive to light. Extraocular movements are intact without ptosis. Hearing is normal bilaterally. Voice is normal. Tongue protrudes midline and moves symmetrically. No clonus. A/P Assessment and Plan Subdural hematoma - Admit to neuro ICU - Neuro checks per unit protocol - Pain management - Management per neurosurgery Coronary artery disease - Hold all antiplatelets due to acute ICH - No acute event - Telemetry - Supportive care Hypertension - Hydralazine and labetalol when necessary - SBP goal less than 150 Dyslipidemia - Resume home meds while nothing by mouth DVT GI prophylaxis - Teds SCDs - No pharmacological DVT prophylaxis due to subdural hematoma - Pepcid Overall impression: Protects airway. Stable hemodynamics. Symptomatic subdural fluid collection with subfalcine shift away. Romeo Quiroga MD Jul 24, 2017 08:40
[2017-07-24] MEDS: DOCUSATE SODIUM 50 MG/SENNA 8.6 MG TAB PO SCH ×2 (09:00→21:36)
[2017-07-24] MEDS: FAMOTIDINE 20 MG/2 ML VIAL IV PUSH SCH ×2 (09:35→21:38)
[2017-07-24] MEDS: HYDROmorphone HCL PF 0.5 MG/0.5 ML SYRINGE IV PRN (09:36)
[2017-07-24] MEDS: SODIUM CHLORIDE 0.9% FLUSH 10 ML FLUSH IV FLUSH SCH ×2 (09:36→22:49)
[2017-07-24] MEDS: CHLORHEXIDINE GLUCONATE 4% SOLN 120 ML BTL TOP SCH (09:55)
[2017-07-24] MEDS: ONDANSETRON HCL 4 MG/2 ML VIAL IV PUSH PRN (10:19)
[2017-07-24] MEDS ORDERED: POTASSIUM CHLOR 20 MEQ PREMIX 100 ML IV ONE (12:15)
[2017-07-24] MEDS ORDERED: GELATIN 12 MM/7 MM FOAM ONE (13:35)
[2017-07-24] MEDS ORDERED: THROMBIN (TOPICAL) 5,000 UNIT VIAL ONE (13:35)
[2017-07-24] MEDS ORDERED: GENTAMICIN SULFATE 80 MG/2 ML VIAL ONE (13:36)
[2017-07-24] MEDS ORDERED: BACITRACIN TOP OINT 15 GM TUBE ONE (13:36)
[2017-07-24] MEDS ORDERED: LIDOCAINE 1%/EPINEPHrine 1:100,000 SOLN 20 ML VIAL ONE (16:15)
[2017-07-24] MEDS ORDERED: ACETAMINOPHEN 1000 MG/100 ML 100 ML IV ONE (16:55)
[2017-07-24] MEDS ORDERED: ARTIFICIAL TEARS OPTH OINT 3.5 APPLIC/3.5 GM TUBO ONE (16:56)
[2017-07-24] MEDS ORDERED: levETIRAcetam 500 MG/5 ML VIAL IV ONE (17:32)
[2017-07-24] MEDS ORDERED: BISACODYL 10 MG SUPP PR PRN (17:45)
[2017-07-24] MEDS ORDERED: MAGNESIUM SULFATE INJ 4 GM in SODIUM CHLORIDE 0.9% INJ 100 ML IV PRN (17:45)
[2017-07-24] MEDS ORDERED: ACETAMINOPHEN 325 MG TAB PO PRN (17:45)
[2017-07-24] MEDS ORDERED: ACETAMINOPHEN/HYDROcodone 325 MG/10 MG TAB PO PRN (17:45)
[2017-07-24] MEDS ORDERED: CALCIUM GLUCONATE 10% 1 GM/10 ML VIAL IV PRN (17:45)
[2017-07-24] MEDS ORDERED: MORPHINE SULFATE 4 MG/ML INJ IV PUSH PRN ×2 (17:45)
[2017-07-24] MEDS ORDERED: POTASSIUM CHLOR 20 MEQ PREMIX 100 ML IV PRN (17:45)
[2017-07-24] MEDS ORDERED: ONDANSETRON HCL 4 MG/2 ML VIAL IV PUSH PRN (17:45)
[2017-07-24] MEDS ORDERED: SODIUM CHLORIDE 0.9% FLUSH 5 ML FLUSH IVF PRN (17:45)
[2017-07-24] MEDS ORDERED: SUGAMMADEX SODIUM 200 MG/2 ML VIAL IV PUSH ONE ×2 (18:24)
[2017-07-24] MEDS ORDERED: DO NOT ADM ANY ANTICOAGULANT DRUGS PRN (18:30)
--- NOTE | 2017-07-24 18:30 | PD.OP ---
Operative Report Date of Surgery: Jul 24, 2017 Preoperative Diagnosis: Right subdural hematoma Postoperative Diagnosis: Right subdural hematoma Procedure: Right frontal kristy hole ecvacuation of subdural hematoma Anesthesia: general Surgeon: Yonatan Ramos [employer] Assistant(s): Amish Resident Surgeon: DETAILS OF THE SURGICAL PROCEDURE Following the induction of general anesthesia, endotracheal intubation was performed. A Fernandez catheter, bilateral CARMELO hose and sequential compression devices were placed and kept throughout the procedure. The patient was positioned supine on a 30/80 table with the head over a gel doughnut. All pressure points were carefully padded with eggcrate mattress. The right frontoparietal region was shaved, prepped and draped in the usual sterile fashion. A linear incision was outlined on the scalp and infiltrated with 1% lidocaine with epinephrine. A skin incision was made with a #10 blade down to the level of the periosteum. Using the TPS drill a kristy hole was made. Small bleeders were coagulated with a bipolar. The dura was carefully coagulated with the bipolar in a cruciform fashion and opened with a 15 blade. A large subdural hematoma, which was under increased pressure was evacuated. The subdural space was entered. A very large subdural hematoma was then evacuated. A specimen was sent to the lab histological evaluation. The subdural space was irrigated with saline until clear, and the subdural drain was left in the subdural space and externalized through a separate stab incision. The incision was thoroughly irrigated with antibiotic solution. The incision was then closed in layers, 3-0 Vicryl with interrupted sutures were used to close the galea. Brandie were applied to the skin and the drain secured with 3-0 nylon. At the end of the procedure, the sponge, needle and instrument counts were all correct. Estimated blood loss was minimal. No blood transfusion was given. No intraoperative complications occurred. The patient received prophylactic antibiotics. The patient was then extubated and transferred to recovery room in a stable condition. Yonatan Ramos MD Jul 24, 2017 18:30
[2017-07-24] MEDS: NS + KCL 20 MEQ INJ 1,000 ML IV SCH (18:55)
[2017-07-24] MEDS ORDERED: levETIRAcetam INJ 500 MG in SODIUM CHLORIDE 0.9% INJ 100 ML IV SCH (20:00)
[2017-07-24] MEDS ORDERED: SODIUM CHLORIDE 0.9% FLUSH 5 ML FLUSH IVF SCH (21:00)
[2017-07-24] MEDS ORDERED: DOCUSATE SODIUM 100 MG CAP PO SCH (21:00)
[2017-07-24] MEDS: ESCITALOPRAM OXALATE 10 MG TAB PO SCH (21:36)
[2017-07-25] VITALS (14 sets, daily range): BP systolic 111–158; BP diastolic 54–73; PULSE 56–74; RESP 14–21; TEMP 96.8–98.7; O2SAT 94–98
[2017-07-25] MEDS: ceFAZolin 2 GM PREMIX 50 ML IV SCH ×3 (00:42→17:00)
[2017-07-25] MEDS: ACETAMINOPHEN/HYDROcodone 325 MG/10 MG TAB PO PRN ×2 (03:24→18:47)
[2017-07-25] MEDS: CHLORHEXIDINE GLUCONATE 2 % 1 PACK (2 CLOTHS) TOP SCH (04:00)
[2017-07-25] MEDS: NS + KCL 20 MEQ INJ 1,000 ML IV SCH ×3 (04:11→23:45)
[2017-07-25 05:05] LABS: AUTOMATED NEUTROPHIL # 8.1 TH/MM3 (1.8-7.7); BASOPHIL % 0.2 % (0.0-2.0); EOSINOPHIL % 0.1 % (0.0-4.0); HEMATOCRIT 37.2 % (35.0-46.0); HEMO FLAGS DIFF FINAL; LYMPH % 9.9 % (9.0-44.0); MEAN CELL VOLUME 82.8 FL (80.0-100.0); MEAN CORPUSCULAR HEMOGLOBIN 27.4 PG (27.0-34.0); MEAN CORPUSCULAR HGB CONC 33.1 % (32.0-36.0); MONO % 5.7 % (0.0-8.0); NEUT % 84.1 % (16.0-70.0); PLATELET COUNT 258 TH/MM3 (150-450); RED BLOOD COUNT 4.49 MIL/MM3 (4.00-5.30); WHITE BLOOD COUNT 9.6 TH/MM3 (4.0-11.0)
[2017-07-25 05:45] LABS: BICARBONATE 23.3 MEQ/L (21.0-32.0)
[2017-07-25 05:53] LABS: POTASSIUM 4.2 MEQ/L (3.5-5.1)
[2017-07-25] MEDS: levETIRAcetam INJ 500 MG in SODIUM CHLORIDE 0.9% INJ 100 ML IV SCH ×2 (06:17→18:00)
--- NOTE | 2017-07-25 07:41 | HHI.CCPN ---
Subjective Remarks/Hospital Course 87-year-old female presents for evaluation of headache. Patient has a history of known subdural hematoma as she was admitted for this after she had a traumatic subdural hematoma. Patient was here for a day and was released. She states that since being discharged she still continues to have headaches but today she's been feeling that the headaches are getting worse as well as having nausea. She states that she is taking Tylenol with minimal relief. She called her doctor today who recommended that she comes here to get evaluated. She denies any numbness, tilling, weakness. She takes no blood thinners. She denies any new injuries or traumas. CT of the head performed in the emergency department shows Enlarging right-sided subdural hygroma has almost doubled in depth since the prior exam. No ongoing hemorrhage, however. There is now some mass effect on the adjacent cerebral hemisphere with worsening effacement of regional right-sided sulci, and narrowing of the ventricles as well as a 6 mm right to left subfalcine shift. 07/24: Markedly enlarged right subdural hygroma with worsening headache. Speech clear, mildly confused. Patient well known to us - typically lucid and talkative. 07/25: Alert, conversant, O X 3 after evacuation hygroma/SDH Objective Vital Signs Date Time Temp Pulse Resp B/P (MAP) Pulse Ox O2 Delivery O2 Flow Rate FiO2 07/25/17 06:00 62 07/25/17 04:00 97.9 20 140/64 (89) 97 07/24/17 20:19 Nasal Cannula 2.00 Intake and Output 07/25/17 07/25/17 07/26/17 08:00 16:00 00:00 Output Total 275 ml Balance -275 ml Result Diagram: 07/25/17 0349 07/25/17 0349 Imaging Last [address] 07/23/17 1644 Signed Impressions: Service Date/Time: Sunday, July 23, 2017 17:33 - CONCLUSION: 1. Enlarging right-sided subdural hygroma has almost doubled in depth since the prior exam. No ongoing hemorrhage, however. 2. There is now some mass effect on the adjacent cerebral hemisphere with worsening effacement of regional right-sided sulci, and narrowing of the ventricles as well as a 6 mm right to left subfalcine shift. 3. Slight increase in the CSF space overlying the left parietal convexity may represent a small chronic subdural in this location as well. Again, this appears to be slightly more prominent when compared to the prior Mustapha Jacob MD Objective Remarks GENERAL: Well-nourished, well-developed patient. Elderly female complaining of headaches SKIN: Warm and dry. HEAD: Normocephalic. Bandaged, dry, clean EYES: No scleral icterus. No injection or drainage. NECK: Supple, trachea midline. Airway patent. CARDIOVASCULAR: Regular rate and rhythm without murmurs, gallops, or rubs. No JVD. RESPIRATORY: Breath sounds equal bilaterally. No accessory muscle use. GASTROINTESTINAL: Abdomen soft, non-tender, nondistended. MUSCULOSKELETAL: No cyanosis, or edema. BACK: Nontender without obvious deformity. NEURO EXAM: Alert and oriented to person, place, and time with normal speech. KRISTYN. Extraocular movements are intact without ptosis. Hearing is normal bilaterally. Voice is normal. Tongue protrudes midline and moves symmetrically. Moves 4 limbs. A/P Assessment and Plan Subdural hematoma - Admit to neuro ICU - Neuro checks per unit protocol - Pain management - Management per neurosurgery Coronary artery disease - Hold all antiplatelets due to acute ICH - No acute event - Telemetry - Supportive care Hypertension - Hydralazine and labetalol when necessary - SBP goal less than 150 Dyslipidemia - Resume home meds while nothing by mouth DVT GI prophylaxis - Teds SCDs - No pharmacological DVT prophylaxis due to subdural hematoma - Pepcid Overall impression: Protects airway. Stable hemodynamics. S/P drainage symptomatic subdural fluid collection with subfalcine shift away. Romeo Quiroga MD Jul 25, 2017 07:41
[2017-07-25] MEDS: SODIUM CHLORIDE 0.9% FLUSH 10 ML FLUSH IV FLUSH SCH ×2 (08:42→20:26)
[2017-07-25] MEDS: DOCUSATE SODIUM 50 MG/SENNA 8.6 MG TAB PO SCH ×2 (08:42→20:25)
[2017-07-25] MEDS: PANTOPRAZOLE SODIUM 40 MG VIAL IVP SCH (08:42)
[2017-07-25] MEDS: PANTOPRAZOLE SOD 40 MG DELAYED RELEASE TAB PO SCH (08:42)
[2017-07-25] MEDS: CHLORHEXIDINE GLUCONATE 4% SOLN 120 ML BTL TOP SCH (08:57)
--- NOTE | 2017-07-25 11:40 | HHI.NSPN ---
Note Status Status: Progress Note Interval History Interval History Ms. Becerra is a 87 year old female who presented with worsening headaches and confusion. Her CT Brain showed bilateral subdural hygroma with increase in right subdural fluid collection with mass effect and midline shift. She underwent a right frontal kristy hole for evacuation of subdural hygroma on . 07/25: stable overnight, reports to be doing well, improved headaches, reports of mild tingling in the right hand. Labs, Micro, & Vital Signs Results Date Time Temp Pulse Resp B/P (MAP) Pulse Ox O2 Delivery O2 Flow Rate FiO2 07/25/17 10:23 95 21 07/25/17 10:00 67 07/25/17 08:00 97.7 56 14 113/56 (75) 94 07/25/17 08:00 57 07/25/17 07:00 95 Nasal Cannula 5.00 07/25/17 06:00 62 07/25/17 04:00 97.9 60 20 140/64 (89) 97 07/25/17 04:00 60 07/25/17 02:00 74 07/25/17 00:00 98.7 62 16 111/54 (73) 95 07/25/17 00:00 74 07/24/17 22:00 72 07/24/17 20:19 94 Nasal Cannula 2.00 07/24/17 20:00 66 07/24/17 20:00 97.8 66 22 133/63 (86) 94 07/24/17 19:45 60 19 110/53 (72) 92 Nasal Cannula 3 07/24/17 19:15 98.3 65 15 121/58 (79) 92 Nasal Cannula 3 07/24/17 19:00 72 20 125/61 (82) 92 Nasal Cannula 3 07/24/17 18:45 79 18 134/61 (85) 96 Simple Mask 6 07/24/17 18:35 97.6 81 22 146/65 (92) 95 Simple Mask 8 07/24/17 17:00 65 17 137/62 (87) 96 07/24/17 15:58 96 Nasal Cannula 2 07/24/17 15:57 98.0 68 16 118/56 (76) 93 07/24/17 15:57 68 07/24/17 15:00 98.6 64 22 124/57 (79) 93 07/24/17 14:00 67 07/24/17 12:00 58 Constitutional Vital Signs Date Time Temp Pulse Resp B/P (MAP) Pulse Ox O2 Delivery O2 Flow Rate FiO2 07/25/17 10:23 95 21 07/25/17 10:00 67 07/25/17 08:00 97.7 56 14 113/56 (75) 94 07/25/17 08:00 57 07/25/17 07:00 95 Nasal Cannula 5.00 07/25/17 06:00 62 07/25/17 04:00 97.9 60 20 140/64 (89) 97 07/25/17 04:00 60 07/25/17 02:00 74 07/25/17 00:00 98.7 62 16 111/54 (73) 95 07/25/17 00:00 74 07/24/17 22:00 72 07/24/17 20:19 94 Nasal Cannula 2.00 07/24/17 20:00 66 07/24/17 20:00 97.8 66 22 133/63 (86) 94 07/24/17 19:45 60 19 110/53 (72) 92 Nasal Cannula 3 07/24/17 19:15 98.3 65 15 121/58 (79) 92 Nasal Cannula 3 07/24/17 19:00 72 20 125/61 (82) 92 Nasal Cannula 3 07/24/17 18:45 79 18 134/61 (85) 96 Simple Mask 6 07/24/17 18:35 97.6 81 22 146/65 (92) 95 Simple Mask 8 07/24/17 17:00 65 17 137/62 (87) 96 07/24/17 15:58 96 Nasal Cannula 2 07/24/17 15:57 98.0 68 16 118/56 (76) 93 07/24/17 15:57 68 07/24/17 15:00 98.6 64 22 124/57 (79) 93 07/24/17 14:00 67 07/24/17 12:00 58 Physical Exam Ms. Puente is alert. Speech is fluent. Following commands well. Cranial nerve examination demonstrates the pupils to be equal, round, and reactive to light. Extra-ocular movements are intact. Facial motor are normal and symmetrical. Neck is soft and supple. Motor: moves all four extremities well Sensory: reports some numbness in the right hand. Medications Current Medications Current Medications Medications (Trade) Dose Ordered Sig/Hannah Route PRN Reason Start Time Stop Time Status Last Admin Dose Admin Alprazolam (Xanax) 0.25 mg BID PRN PO ANXIETY 07/23/17 19:00 Amlodipine Besylate (Norvasc) 10 mg DAILY PO 07/24/17 09:00 Escitalopram Oxalate (Lexapro) 10 mg HS PO 07/23/17 21:00 07/24/17 21:36 Sodium Chloride (NS Flush) 2 ml UNSCH PRN IV FLUSH FLUSH AFTER USING IV ACCESS 07/23/17 19:00 Sodium Chloride (NS Flush) 2 ml BID IV FLUSH 07/23/17 21:00 07/25/17 08:42 Ondansetron HCl (Zofran Inj) 4 mg Q6H PRN IV PUSH NAUSEA OR VOMITING 07/23/17 19:00 07/24/17 10:19 Zolpidem Tartrate (Ambien) 5 mg HS PRN PO INSOMNIA 07/23/17 19:00 Albuterol/ Ipratropium (Duoneb Neb) 1 ampule Q2HR NEB PRN INH WHEEZING 07/23/17 19:00 Miscellaneous Information 1 Q361D XX 07/23/17 19:00 Chlorhexidine Gluconate (Chlorhexidine 2% Cloth) 3 pack Taper DAILY@04 TOP 07/24/17 04:00 07/20/18 03:59 Chlorhexidine Gluconate (Chlorhexidine 2% Cloth) 3 pack UNSCH PRN TOP HYGIENIC CARE 07/23/17 19:00 Senna/Docusate Sodium (Coleen-Colace) 1 tab BID PO 07/23/17 21:00 07/25/17 08:42 Magnesium Hydroxide (Milk Of Magnesia Liq) 30 ml Q12H PRN PO Mild constipation 07/23/17 19:00 Sennosides (Senokot) 17.2 mg Q12H PRN PO Moderate constipation 07/23/17 19:00 Bisacodyl (Dulcolax Supp) 10 mg DAILY PRN RECTAL SEVERE CONSITIPATION 07/23/17 19:00 Lactulose (Lactulose Liq) 30 ml DAILY PRN PO SEVERE CONSITIPATION 07/23/17 19:00 Hydralazine HCl (Apresoline Inj) 20 mg Q4H PRN IV PUSH SBP>150, DBP>90 07/24/17 04:00 Potassium Chloride/Sodium Chloride 1,000 ml @ 100 mls/hr Q10H IV 07/24/17 17:45 07/25/17 04:11 Cefazolin Sodium/ Dextrose 50 ml @ 100 mls/hr Q8H IV 07/25/17 01:00 07/25/17 17:29 07/25/17 08:42 Pantoprazole Sodium (Protonix) 40 mg DAILY PO 07/25/17 09:00 07/25/17 08:42 Pantoprazole Sodium (Protonix Inj) 40 mg DAILY IVP 07/25/17 09:00 Calcium Gluconate (Calcium Gluconate Inj) 1 gm UNSCH PRN IV SEE LABEL COMMENTS 07/24/17 17:45 Potassium Chloride 100 ml @ 50 mls/hr UNSCH PRN IV POTASSIUM LESS THAN 4 07/24/17 17:45 Magnesium Sulfate 4 gm/Sodium Chloride 108 ml @ 108 mls/hr UNSCH PRN IV MAGNESIUM LESS THAN 2 07/24/17 17:45 Acetaminophen/ Hydrocodone Bitart ([place] 10-325 Mg) 1 tab Q4H PRN PO PAIN SCALE 1 TO 5 07/24/17 17:45 Acetaminophen/ Hydrocodone Bitart ([place] 10-325 Mg) 2 tab Q4H PRN PO PAIN SCALE 6 TO 10 07/24/17 17:45 07/25/17 03:24 Morphine Sulfate (Morphine Inj) 2 mg Q2H PRN IV PUSH PAIN SCALE 1 TO 6 07/24/17 17:45 Morphine Sulfate (Morphine Inj) 4 mg Q2H PRN IV PUSH PAIN SCALE 7 TO 10 07/24/17 17:45 Acetaminophen (Tylenol) 650 mg Q4H PRN PO TEMPERATURE > 101.5 F 07/24/17 17:45 Miscellaneous Information ALL NURSING DEPARTME... UNSCH PRN .XX SEE LABEL COMMENTS 07/24/17 18:30 07/25/17 18:29 Levetriacetam 500 mg/Sodium Chloride 105 ml @ 400 mls/hr Q12H IV 07/25/17 06:00 07/25/17 06:17 Medical Decision Making MDM Remarks 87 year old female with b/l subdural hygroma with worsening left subdural hygroma with mass effect and midline shift s/p right kristy hole for evacuation of right subdural hygroma Plan Plan Remarks cont DAVIAN draining, f/u CT Head today, cont PT, ok mobilize OOB cont medical mgt, nonchemical dvt prophylaxis in view of ICH protonix for stress ulcer proph Keppra for dvt prophylaix IS every hour cont neuro checks in [facility] Clara Jack Jul 25, 2017 11:40
--- NOTE | 2017-07-25 15:02 | EKG ---
Date Performed: 07/24/2017 Time Performed: 16:20:46 PTAGE: 87 years EKG: Sinus rhythm NORMAL ECG PREVIOUS TRACING : 12/18/2013 09.49 Compared to prior tracing no significant change DOCTOR: Melony Moy Interpretating Date/Time 07/25/2017 14:54:59
--- NOTE | 2017-07-25 16:12 | RADRPT ---
EXAM DATE/TIME: 07/25/2017 14:21 [place] COMPARISON: CT BRAIN W/O CONTRAST, July 23, 2017, 17:33. INDICATIONS : Evaluate subdural hematoma. RADIATION DOSE: 56.35 CTDIvol (mGy) MEDICAL HISTORY : Hypertension. SURGICAL HISTORY : None. ENCOUNTER: Initial ACUITY: 1 day PAIN SCALE: 0/10 LOCATION: cranial TECHNIQUE: Multiple contiguous axial images were obtained of the head. Using automated exposure control and adj ustment of the mA and/or kV according to patient size, radiation dose was kept as low as reasonably a chievable to obtain optimal diagnostic quality images. DICOM format image data is available electro nically for review and comparison. FINDINGS: Interval placement of a right subdural tube via a kristy hole in the high convexity parietal region. T here has been a decrease in the size of the right subdural fluid collection, now measuring up to 9 mm in size (previously measured 1.8 cm). There is some gas in the subdural space on the right characte ristic of interval surgery. The ventricles are symmetric in size and there is no evidence of midline shift. The left subdural fl uid collection is similar in appearance to prior CT, measuring up to 9 mm. No evidence of intraparenchymal blood or mass effect in the supratentorial brain. The posterior fransisco a structures are grossly unremarkable. CONCLUSION: Interval placement of right subdural catheter with decrease in size of right subdural fluid collectio n. There are now balanced bilateral subdural fluid collections and no midline shift. Mathew Cronin MD on July 25, 2017 at 16:06 Board Certified Radiologist. This report was verified electronically.
[2017-07-25] MEDS: ESCITALOPRAM OXALATE 10 MG TAB PO SCH (20:25)
[2017-07-26] VITALS (11 sets, daily range): BP systolic 101–173; BP diastolic 56–79; PULSE 65–80; RESP 14–23; TEMP 97.8–98.7; O2SAT 92–98
[2017-07-26] MEDS: CHLORHEXIDINE GLUCONATE 2 % 1 PACK (2 CLOTHS) TOP SCH (04:00)
[2017-07-26 06:33] LABS: BICARBONATE 28.6 MEQ/L (21.0-32.0); POTASSIUM 3.8 MEQ/L (3.5-5.1)
[2017-07-26] MEDS: levETIRAcetam INJ 500 MG in SODIUM CHLORIDE 0.9% INJ 100 ML IV SCH ×2 (07:25→21:04)
[2017-07-26] MEDS: SODIUM CHLORIDE 0.9% FLUSH 10 ML FLUSH IV FLUSH SCH ×2 (09:00→21:05)
[2017-07-26] MEDS: PANTOPRAZOLE SODIUM 40 MG VIAL IVP SCH (09:17)
[2017-07-26] MEDS: DOCUSATE SODIUM 50 MG/SENNA 8.6 MG TAB PO SCH ×2 (09:17→21:05)
[2017-07-26] MEDS: PANTOPRAZOLE SOD 40 MG DELAYED RELEASE TAB PO SCH (09:18)
[2017-07-26] MEDS: NS + KCL 20 MEQ INJ 1,000 ML IV SCH ×2 (09:45→22:45)
--- NOTE | 2017-07-26 11:36 | HHI.NSPN ---
Note Status Status: Progress Note Interval History Interval History Ms. Becerra is a 87 year old female who presented with worsening headaches and confusion. Her CT Brain showed bilateral subdural hygroma with increase in right subdural fluid collection with mass effect and midline shift. She underwent a right frontal kristy hole for evacuation of subdural hygroma on . 07/25: stable overnight, reports to be doing well, improved headaches, reports of mild tingling in the right hand. 07/26: DAVIAN drain with minimal drainage, denies headaches, eating her breakfast with good appetite. no new neuro complaints. Labs, Micro, & Vital Signs Results Date Time Temp Pulse Resp B/P (MAP) Pulse Ox O2 Delivery O2 Flow Rate FiO2 07/26/17 10:00 72 07/26/17 09:06 93 21 07/26/17 08:00 98.5 67 16 150/67 (94) 93 07/26/17 08:00 65 07/26/17 07:00 93 Room Air 07/26/17 06:00 80 07/26/17 04:00 65 07/26/17 04:00 98.3 65 22 140/75 (96) 94 07/26/17 02:00 66 07/26/17 00:00 97.8 71 14 124/71 (88) 98 07/26/17 00:00 71 07/25/17 22:29 97 21 07/25/17 22:00 65 07/25/17 20:00 74 07/25/17 20:00 96.8 74 21 136/63 (87) 98 07/25/17 19:00 98 Room Air 07/25/17 18:00 60 07/25/17 16:00 62 07/25/17 16:00 98.0 62 20 158/73 (101) 96 07/25/17 14:00 66 07/25/17 12:00 97.7 62 20 136/61 (86) 96 07/25/17 12:00 62 Constitutional Vital Signs Date Time Temp Pulse Resp B/P (MAP) Pulse Ox O2 Delivery O2 Flow Rate FiO2 07/26/17 10:00 72 07/26/17 09:06 93 21 07/26/17 08:00 98.5 67 16 150/67 (94) 93 07/26/17 08:00 65 07/26/17 07:00 93 Room Air 07/26/17 06:00 80 07/26/17 04:00 65 07/26/17 04:00 98.3 65 22 140/75 (96) 94 07/26/17 02:00 66 07/26/17 00:00 97.8 71 14 124/71 (88) 98 07/26/17 00:00 71 07/25/17 22:29 97 21 07/25/17 22:00 65 07/25/17 20:00 74 07/25/17 20:00 96.8 74 21 136/63 (87) 98 07/25/17 19:00 98 Room Air 07/25/17 18:00 60 07/25/17 16:00 62 07/25/17 16:00 98.0 62 20 158/73 (101) 96 07/25/17 14:00 66 07/25/17 12:00 97.7 62 20 136/61 (86) 96 07/25/17 12:00 62 Physical Exam Ms. Puente is alert. Speech is fluent. Following commands well. Cranial nerve examination demonstrates the pupils to be equal, round, and reactive to light. Extra-ocular movements are intact. Facial motor are normal and symmetrical. Neck is soft and supple. Motor: moves all four extremities well Sensory: reports some numbness in the right hand. Right DAVIAN drain with minimal output. Wound is clean and dry. following removal of DAVIAN drain, pt with moderate CSF leaking. Using sterile technique her site was cleaned with betadine. 2 cc xylocaine infiltrated to numb the skin. 3-0 silk suture used to close DAVIAN site. No leaking noted following stitch placement, pt tolerated procedure well. Medications Current Medications Current Medications Medications (Trade) Dose Ordered Sig/Hannah Route PRN Reason Start Time Stop Time Status Last Admin Dose Admin Alprazolam (Xanax) 0.25 mg BID PRN PO ANXIETY 07/23/17 19:00 Amlodipine Besylate (Norvasc) 10 mg DAILY PO 07/24/17 09:00 07/26/17 09:17 Escitalopram Oxalate (Lexapro) 10 mg HS PO 07/23/17 21:00 07/25/17 20:25 Sodium Chloride (NS Flush) 2 ml UNSCH PRN IV FLUSH FLUSH AFTER USING IV ACCESS 07/23/17 19:00 Sodium Chloride (NS Flush) 2 ml BID IV FLUSH 07/23/17 21:00 07/26/17 09:00 Ondansetron HCl (Zofran Inj) 4 mg Q6H PRN IV PUSH NAUSEA OR VOMITING 07/23/17 19:00 07/24/17 10:19 Zolpidem Tartrate (Ambien) 5 mg HS PRN PO INSOMNIA 07/23/17 19:00 Albuterol/ Ipratropium (Duoneb Neb) 1 ampule Q2HR NEB PRN INH WHEEZING 07/23/17 19:00 Miscellaneous Information 1 Q361D XX 07/23/17 19:00 07/23/17 19:00 Chlorhexidine Gluconate (Chlorhexidine 2% Cloth) 3 pack Taper DAILY@04 TOP 07/24/17 04:00 07/20/18 03:59 Chlorhexidine Gluconate (Chlorhexidine 2% Cloth) 3 pack UNSCH PRN TOP HYGIENIC CARE 07/23/17 19:00 Senna/Docusate Sodium (Coleen-Colace) 1 tab BID PO 07/23/17 21:00 07/26/17 09:17 Magnesium Hydroxide (Milk Of Magnesia Liq) 30 ml Q12H PRN PO Mild constipation 07/23/17 19:00 Sennosides (Senokot) 17.2 mg Q12H PRN PO Moderate constipation 07/23/17 19:00 Bisacodyl (Dulcolax Supp) 10 mg DAILY PRN RECTAL SEVERE CONSITIPATION 07/23/17 19:00 Lactulose (Lactulose Liq) 30 ml DAILY PRN PO SEVERE CONSITIPATION 07/23/17 19:00 Hydralazine HCl (Apresoline Inj) 20 mg Q4H PRN IV PUSH SBP>150, DBP>90 07/24/17 04:00 07/25/17 18:42 Potassium Chloride/Sodium Chloride 1,000 ml @ 100 mls/hr Q10H IV 07/24/17 17:45 07/25/17 04:11 Pantoprazole Sodium (Protonix) 40 mg DAILY PO 07/25/17 09:00 07/26/17 09:18 Pantoprazole Sodium (Protonix Inj) 40 mg DAILY IVP 07/25/17 09:00 07/26/17 09:17 Calcium Gluconate (Calcium Gluconate Inj) 1 gm UNSCH PRN IV SEE LABEL COMMENTS 07/24/17 17:45 Potassium Chloride 100 ml @ 50 mls/hr UNSCH PRN IV POTASSIUM LESS THAN 4 07/24/17 17:45 Magnesium Sulfate 4 gm/Sodium Chloride 108 ml @ 108 mls/hr UNSCH PRN IV MAGNESIUM LESS THAN 2 07/24/17 17:45 Acetaminophen/ Hydrocodone Bitart ([place] 10-325 Mg) 1 tab Q4H PRN PO PAIN SCALE 1 TO 5 07/24/17 17:45 Acetaminophen/ Hydrocodone Bitart ([place] 10-325 Mg) 2 tab Q4H PRN PO PAIN SCALE 6 TO 10 07/24/17 17:45 07/25/17 18:47 Morphine Sulfate (Morphine Inj) 2 mg Q2H PRN IV PUSH PAIN SCALE 1 TO 6 07/24/17 17:45 Morphine Sulfate (Morphine Inj) 4 mg Q2H PRN IV PUSH PAIN SCALE 7 TO 10 07/24/17 17:45 Acetaminophen (Tylenol) 650 mg Q4H PRN PO TEMPERATURE > 101.5 F 07/24/17 17:45 Levetriacetam 500 mg/Sodium Chloride 105 ml @ 400 mls/hr Q12H IV 07/25/17 06:00 07/26/17 07:25 Medical Decision Making MDM Remarks 87 year old female with b/l subdural hygroma with worsening left subdural hygroma with mass effect and midline shift s/p right kristy hole for evacuation of right subdural hygroma, doing well, neuro stable, f/u CT Head yesterday with improved right subdural with improved mass effect and midline shift Plan Plan Remarks dc right DAVIAN drain, cont PT, ok mobilize OOB cont medical mgt, nonchemical dvt prophylaxis in view of ICH protonix for stress ulcer proph Keppra for dvt prophylaix IS every hour clear out of unit to 5N near nurse station if stable tomorrow anticipate discharge Clara Jack Jul 26, 2017 11:36
[2017-07-26] MEDS: ONDANSETRON HCL 4 MG/2 ML VIAL IV PUSH PRN (12:26)
[2017-07-26] MEDS: ACETAMINOPHEN/HYDROcodone 325 MG/10 MG TAB PO PRN (14:58)
--- NOTE | 2017-07-26 17:36 | HHI.CCPN ---
Subjective Remarks/Hospital Course 87-year-old female presents for evaluation of headache. Patient has a history of known subdural hematoma as she was admitted for this after she had a traumatic subdural hematoma. Patient was here for a day and was released. She states that since being discharged she still continues to have headaches but today she's been feeling that the headaches are getting worse as well as having nausea. She states that she is taking Tylenol with minimal relief. She called her doctor today who recommended that she comes here to get evaluated. She denies any numbness, tilling, weakness. She takes no blood thinners. She denies any new injuries or traumas. CT of the head performed in the emergency department shows Enlarging right-sided subdural hygroma has almost doubled in depth since the prior exam. No ongoing hemorrhage, however. There is now some mass effect on the adjacent cerebral hemisphere with worsening effacement of regional right-sided sulci, and narrowing of the ventricles as well as a 6 mm right to left subfalcine shift. 07/24: Markedly enlarged right subdural hygroma with worsening headache. Speech clear, mildly confused. Patient well known to us - typically lucid and talkative. 07/25: Alert, conversant, O X 3 after evacuation hygroma/SDH. 07/26: Alert, conversant. Transfer. Objective Vital Signs Date Time Temp Pulse Resp B/P (MAP) Pulse Ox O2 Delivery O2 Flow Rate FiO2 07/26/17 16:00 98.6 71 19 173/79 (110) 92 07/26/17 09:06 21 07/26/17 07:00 Room Air 07/25/17 07:00 5.00 Intake and Output 07/26/17 07/26/17 07/27/17 08:00 16:00 00:00 Output Total 4 ml Balance -4 ml Result Diagram: 07/25/17 0349 07/26/17 0555 Imaging Last [address] 07/23/17 1644 Signed Impressions: Service Date/Time: Sunday, July 23, 2017 17:33 - CONCLUSION: 1. Enlarging right-sided subdural hygroma has almost doubled in depth since the prior exam. No ongoing hemorrhage, however. 2. There is now some mass effect on the adjacent cerebral hemisphere with worsening effacement of regional right-sided sulci, and narrowing of the ventricles as well as a 6 mm right to left subfalcine shift. 3. Slight increase in the CSF space overlying the left parietal convexity may represent a small chronic subdural in this location as well. Again, this appears to be slightly more prominent when compared to the prior Mustapha Jacob MD Objective Remarks GENERAL: Well-nourished, well-developed patient. Elderly female complaining of headaches SKIN: Warm and dry. HEAD: Normocephalic. Bandaged, dry, clean EYES: No scleral icterus. No injection or drainage. NECK: Supple, trachea midline. Airway patent. CARDIOVASCULAR: Regular rate and rhythm without murmurs, gallops, or rubs. No JVD. RESPIRATORY: Breath sounds equal bilaterally. No accessory muscle use. GASTROINTESTINAL: Abdomen soft, non-tender, nondistended. MUSCULOSKELETAL: No cyanosis, or edema. BACK: Nontender without obvious deformity. NEURO EXAM: Alert and oriented to person, place, and time with normal speech. KRISTYN.Speech clear. A/P Assessment and Plan Subdural hematoma - Admit to neuro ICU - Neuro checks per unit protocol - Pain management - Management per neurosurgery Coronary artery disease - Hold all antiplatelets due to acute ICH - No acute event - Telemetry - Supportive care Hypertension - Hydralazine and labetalol when necessary - SBP goal less than 150 Dyslipidemia - Resume home meds while nothing by mouth DVT GI prophylaxis - Teds SCDs - No pharmacological DVT prophylaxis due to subdural hematoma - Pepcid Overall impression: Protects airway. Stable hemodynamics. S/P drainage symptomatic subdural fluid collection with subfalcine shift. Transfer anytime. Romeo Quiroga MD Jul 26, 2017 17:36
[2017-07-26] MEDS: ESCITALOPRAM OXALATE 10 MG TAB PO SCH (21:05)
[2017-07-27 00:30] VITALS: BP 110/60; PULSE 64; RESP 19; TEMP 97.6; O2SAT 94
[2017-07-27] MEDS: CHLORHEXIDINE GLUCONATE 2 % 1 PACK (2 CLOTHS) TOP SCH (04:00)
[2017-07-27 05:15] VITALS: BP 152/65; PULSE 65; RESP 18; TEMP 98.2; O2SAT 95
[2017-07-27] MEDS: levETIRAcetam INJ 500 MG in SODIUM CHLORIDE 0.9% INJ 100 ML IV SCH (05:56)
[2017-07-27 08:00] VITALS: BP 146/65; PULSE 73; RESP 16; TEMP 98.4; O2SAT 94
[2017-07-27] MEDS: PANTOPRAZOLE SODIUM 40 MG VIAL IVP SCH (09:00)
[2017-07-27] MEDS: PANTOPRAZOLE SOD 40 MG DELAYED RELEASE TAB PO SCH (10:27)
[2017-07-27] MEDS: SODIUM CHLORIDE 0.9% FLUSH 10 ML FLUSH IV FLUSH SCH (10:28)
[2017-07-27] MEDS: DOCUSATE SODIUM 50 MG/SENNA 8.6 MG TAB PO SCH (10:28)
[2017-07-27] MEDS ORDERED: POLYETHYLENE GLYCOL 17 GM PKG PO ONE (11:30)
[2017-07-27 12:00] VITALS: BP 110/59; PULSE 72; RESP 18; TEMP 98.5; O2SAT 98
[2017-07-27] MEDS ORDERED: LEVE500T8 PO (12:08)
--- NOTE | 2017-07-27 12:12 | HHI.FF ---
Face to Face Verification Diagnosis: (1) Subdural hygroma (2) Subdural hematoma (3) Hypertension, benign Physical Therapy Order: Evaluate and Treat, Improve ambulation, Strength and gait training Occupational Therapy Order: Evaluate and Treat, Improve ADL, Gross motor coordination, Fine motor coordination I have seen patient Danielle Becerra on 07/27/17. My clinical findings support the need for the requested home health care services because: Ltd mobility - disease progression Deconditioned w/ increased weakness Limited ability to care for self Impaired cognition/judgement High risk of falls I certify that my clinical findings support that this patient is homebound because: Post-op weakness Impaired cognitive ability/safety Unsteady gait/balance Unsafe to leave home unassisted Unable to use public transportation Amy Ji Jul 27, 2017 12:12
[2017-07-27] MEDS ORDERED: HYDR-3516 PO (12:14)
--- NOTE | 2017-07-27 12:19 | HHI.DCPOC ---
Discharge Care Plan Diagnosis: (1) Subdural hematoma (2) Subdural hygroma (3) Hypertension, benign (4) Hyperlipidemia Goals to Promote Your Health * To prevent worsening of your condition and complications * To maintain your health at the optimal level Directions to Meet Your Goals Take your medications as prescribed Follow your dietary instruction Follow activity as directed Keep your appointments as scheduled Take your immunizations and boosters as scheduled If your symptoms worsen call your PCP, if no PCP go to Urgent Care Center or Emergency Room Smoking is Dangerous to Your Health. Avoid second hand smoke Call the 24-hour hour crisis hotline for domestic abuse at Amy Ji Jul 27, 2017 12:19
--- NOTE | 2017-07-27 14:33 | HHI.DS ---
cc: Wili Hernandez MD Discharge Summary Admission Date Jul 23, 2017 at 18:25 Discharge Date: Jul 27, 2017 Admitting Diagnosis worsening subdural hematoma with midline shift (1) Subdural hygroma ICD Code: D18.1 - Lymphangioma, any site (2) Hypertension, benign ICD Code: I10 - Benign hypertension Status: Chronic (3) Subdural hematoma ICD Code: I62.00 - Nontraumatic subdural hemorrhage, unspecified (4) Hyperlipidemia ICD Code: E78.5 - Hyperlipidemia Status: Chronic Procedures 07/24/17 right frontal kristy hole evacuation of subdural hematoma Brief History - From Admission 87-year-old female presents for evaluation of headache. Patient has a history of known subdural hematoma as she was admitted for this after she had a traumatic subdural hematoma. Patient was here for a day and was released. She states that since being discharged she still continues to have headaches but today she's been feeling that the headaches are getting worse as well as having nausea. She states that she is taking Tylenol with minimal relief. She called her doctor today who recommended that she comes here to get evaluated. She denies any numbness, tilling, weakness. She takes no blood thinners. She denies any new injuries or traumas. CT of the head performed in the emergency department shows Enlarging right-sided subdural hygroma has almost doubled in depth since the prior exam. No ongoing hemorrhage, however. There is now some mass effect on the adjacent cerebral hemisphere with worsening effacement of regional right-sided sulci, and narrowing of the ventricles as well as a 6 mm right to left subfalcine shift. CBC/BMP: 07/25/17 0349 07/26/17 0555 Significant Findings Laboratory Tests Test 07/25/17 03:49 07/26/17 05:55 Neutrophils (%) (Auto) 84.1 % (16.0-70.0) Neutrophils # (Auto) 8.1 TH/MM3 (1.8-7.7) Random Glucose 122 MG/DL (74-106) Estimat Glomerular Filtration Rate 71 ML/MIN (>89) 88 ML/MIN (>89) Imaging Last Impressions Head CT 07/25/17 0000 Signed Impressions: Service Date/Time: June 14:21 - CONCLUSION: Interval placement of right subdural catheter with decrease in size of right subdural fluid collection. There are now balanced bilateral subdural fluid collections and no midline shift. Mathew Cronin MD PE at Discharge General: Elderly female in no acute distress. Heart: Regular rate and rhythm. No murmur. Lungs: Clear to auscultation bilaterally. No wheezes, rales, or rhonchi. Breathing is nonlabored. Abdomen: Soft, nontender, nondistended. Extremities: No lower extremity edema. Psych: Alert and oriented. Pt update on day of discharge The patient had no complaints at this time. She was requesting discharge home. Denied cough, dyspnea, chest pain. She reports headache on the top of her head. Hospital Course The patient was admitted to the critical care service for further evaluation and management of subdural hematoma. Neurosurgery was consulted. Her whole evacuation of the subdural hematoma was done on 07/24/17. She was maintained on Keppra for seizure prophylaxis. She was evaluated by PT and OT. She continued to improve clinically. Drains were removed. She was felt to be stable for discharge home with her family. Pt Condition on Discharge: Stable Discharge Disposition: Disch w/ Home Health Serv Discharge Time: > 30 minutes Discharge Instructions DIET: Follow Instructions for: Heart Healthy Diet Activities you can perform: See Additionl Instruction Other Activity Instructions: Per PT and OT recommendations Follow up Referrals: Neurosurgery - 1 Week with Yonatan Ramos MD PCP Follow-up - 1 Week New Medications: Hydrocodone-Acetaminophen (Hydrocodone-Acetaminophen) 5-325 mg Tab 1 TAB PO Q6H PRN for PAIN, #15 TAB 0 Refills Levetiracetam (Levetiracetam) 500 Mg Tab 500 MG PO BID for Control Seizures for 30 Days, #60 TAB 0 Refills Continued Medications: Alprazolam (Alprazolam) 0.25 Mg Tab 0.25 MG PO BID PRN for ANXIETY, TAB 0 Refills Amlodipine (Amlodipine) 10 Mg Tab 10 MG PO DAILY for Blood Pressure Management, #30 TAB 0 Refills Escitalopram (Escitalopram) 10 Mg Tab 10 MG PO HS, #30 TAB 0 Refills Stoverink,Luisito D. MD Jul 27, 2017 14:33
== END 2017-07-27 13:57 | disposition home health service (06) | DRG 27 ==
LOC: NEPE 16:18 → NEDA 18:25 → N03A 21:21 → N05A 07-26 18:22
PROVIDERS: ADMIT Family Medicine; ATTEND Family Medicine
PROC: 00C40ZZ Extirpation of Matter from Intracranial Subdural Space, Open Approach (ICD-10-PCS; principal; 2017-07-24 16:30)
DX: S06.5X0A Traumatic subdural hemorrhage without loss of consciousness, initial encounter (principal); I10 Essential (primary) hypertension; F32.9 Major depressive disorder, single episode, unspecified; K21.9 Gastro-esophageal reflux disease without esophagitis; W19.XXXA Unspecified fall, initial encounter; M19.90 Unspecified osteoarthritis, unspecified site; F41.9 Anxiety disorder, unspecified; E78.5 Hyperlipidemia, unspecified; I25.10 Atherosclerotic heart disease of native coronary artery without angina pectoris; Z96.653 Presence of artificial knee joint, bilateral; Z96.642 Presence of left artificial hip joint; R73.9 Hyperglycemia, unspecified; D18.1 Lymphangioma, any site
CPT/HCPCS: 70450; 80048; 80053; 83735; 84100; 85025; 85610; 85730; 87641; 88304; 93005; 94150; 96374; 96375; J1170; C9113; J0131; J0360; J0690; J1580; J1953; J2270; J2405; J3480; J7030

== ENCOUNTER 2017-10-05 11:07 | Inpatient (IN) | payer MEDICARE ==
[~2017-10-05] VITALS: Ht 167.6 cm; Wt 79.6 kg
[2017-10-05] VITALS (11 sets, daily range): BP systolic 108–150; BP diastolic 55–106; PULSE 28–84; RESP 13–28; TEMP 98.1–98.6; O2SAT 91–97
[~2017-10-05 11:07] MED LIST changes: +ALPR0.25 PO; +HYDR-3516 PO; +LEVE500T8 PO; -SYSTSOL EACH EYE
[2017-10-05] MEDS ORDERED: OMEP20TA93 PO (11:15)
--- NOTE | 2017-10-05 11:42 | PD ---
HPI Chief Complaint: Fall Time Seen by Provider: 11:21 Travel History International Travel<30 days: No Contact w/Intl Traveler<30days: No Traveled to known affect area: No History of Present Illness HPI 87-year-old female that presents to the ED for evaluation of fall and injury. Patient states that she had a fall 2-3 days ago and did not hit her head but landed on her left buttocks. She's been having pain and difficulty walking because of that since. Per patient the pain gets worse when she stands otherwise she has minimal difficulty. Per patient comes and goes. Per patient when he comes is 10 out of 10. There is a friend of hers in the room and she has noted that the patient has been complaining of pain as well as has had 2 falls. Patient also complained to her of dizziness and per friend she appears to be somewhat off. She is usually not like this. Patient denies any pain at this time. Denies any new injuries. Denies hitting her head any time. She denies taking any blood thinners. She does have a history of subdural hematoma that had to be drained. Per patient she lives alone. Per patient she is supposed to use a walker and unclear she's been using it. Per patient she gets dizzy at times. When asked when the patient had the surgery for her subdural hematoma she states that he was 3 weeks ago where he actually was in June. She does appear to be somewhat confused. PFSH Past Medical History Hx Anticoagulant Therapy: No Arthritis: Yes Autoimmune Disease: No Anxiety: Yes Depression: Yes Heart Rhythm Problems: Yes Cancer: No Cardiovascular Problems: No High Cholesterol: Yes Chemotherapy: No Diabetes: No Diminished Hearing: No Endocrine: No Gastrointestinal Disorders: Yes (GERD) GERD: Yes Genitourinary: No Hepatitis: No Hiatal Hernia: Yes Hypertension: Yes Immune Disorder: No Implanted Vascular Access Dvce: No Musculoskeletal: No Neurologic: Yes (SUBDURAL HEMATOMA ) Psychiatric: Yes Reproductive: No Respiratory: No Radiation Therapy: No Thyroid Disease: No ?: Not LMP: n/a Menopausal: Yes Past Surgical History Abdominal Surgery: No AICD: No Arteriovenous Shunt: No Cardiac Surgery: No Ear Surgery: No Endocrine Surgery: No Eye Surgery: No Genitourinary Surgery: No Gynecologic Surgery: No Insulin Pump: No Joint Replacement: Yes (BILATERAL KNEE) Oral Surgery: No Pacemaker: No Thoracic Surgery: No Other Surgery: Yes Social History Alcohol Use: No Tobacco Use: No Substance Use: No Allergies-Medications (Allergen,Severity, Reaction): Coded Allergies: No Known Allergies (Verified Adverse Reaction, Unknown, 10/05/17) Reported Meds & Prescriptions Reported Meds & Active Scripts Active Reported Omeprazole 20 Mg Tab 20 Mg PO DAILY Alprazolam 0.25 Mg Tab 0.25 Mg PO BID PRN Amlodipine (Amlodipine Besylate) 10 Mg Tab 10 Mg PO DAILY Review of Systems Except as stated in HPI: all other systems reviewed are Neg Physical Exam Narrative GENERAL: SKIN: Warm and dry. HEAD: Atraumatic. Normocephalic. EYES: Pupils equal and round. No scleral icterus. No injection or drainage. ENT: No nasal bleeding or discharge. Mucous membranes pink and moist. Tongue is midline. No uvula deviation. NECK: Trachea midline. No JVD. CARDIOVASCULAR: Regular rate and rhythm. No murmurs, S3, S4. RESPIRATORY: No accessory muscle use. Clear to auscultation. Breath sounds equal bilaterally. GASTROINTESTINAL: Abdomen soft, non-tender, nondistended. Hepatic and splenic margins not palpable. MUSCULOSKELETAL: Extremities without clubbing, cyanosis, or edema. No obvious deformities. Full range of motion of the upper and lower extremities bilaterally. Patient does have reproducible pain on the left buttocks area. No lumbar, thoracic, cervical spine tenderness to palpation. 2+ pulses bilaterally. Neurovascular intact. Straight leg test negative bilaterally. NEUROLOGICAL: Awake and alert and oriented 4 but does appear to have some difficulty with time questions. No obvious cranial nerve deficits. Motor grossly within normal limits. Five out of 5 muscle strength in the arms and legs. Normal speech. PSYCHIATRIC: Appropriate mood and affect; insight and judgment normal. Data Data Last Documented VS Vital Signs Date Time Temp Pulse Resp B/P (MAP) Pulse Ox O2 Delivery O2 Flow Rate FiO2 10/05/17 11:37 77 16 118/56 (76) 95 Room Air 10/05/17 11:09 98.2 Orders Orders Electrocardiogram (10/05/17 11:26) Complete Blood Count With Diff (10/05/17 11:26) Comprehensive Metabolic Panel (10/05/17 11:26) Ckmb (Isoenzyme) Profile (10/05/17 11:26) Troponin I (10/05/17 11:26) Prothrombin Time / Inr (Pt) (10/05/17 11:26) Act Partial Throm Time (Ptt) (10/05/17 11:26) Urinalysis - C+S If Indicated (10/05/17 11:26) Magnesium (Mg) (10/05/17 11:26) Thyroid Stimulating Hormone (10/05/17 11:26) Chest, Single Ap (10/05/17 11:26) Ct Brain W/O Iv Contrast(Rout) (10/05/17 11:26) Iv Access Insert/Monitor (10/05/17 11:26) Ecg Monitoring (10/05/17 11:26) Oximetry (10/05/17 11:26) Orthostatic Vital Signs (10/05/17 11:26) Ct Lumb Spine W/O Contrast (10/05/17 ) Hip, Uni(Ap&Lat) W Ap Pelvis (10/05/17 ) Admit To Inpatient (10/05/17 ) Code Status (10/05/17 12:43) Vital Signs (Adult) SHEBA.Q1H (10/05/17 12:43) Activity Bed Rest (10/05/17 12:43) Elevate Head Of Bed (10/05/17 12:43) Diet Npo (10/05/17 Lunch) Sodium Chlor 0.9% 1000 Ml Inj (Ns 1000 M (10/05/17 12:43) Sodium Chloride 0.9% Flush (Ns Flush) (10/05/17 12:45) Sodium Chloride 0.9% Flush (Ns Flush) (10/05/17 21:00) Famotidine Inj (Pepcid Inj) (10/05/17 21:00) Albuterol-Ipratropium Neb (Duoneb Neb) (10/05/17 12:45) Complete Blood Count With Diff (10/06/17 04:00) Comprehensive Metabolic Panel (10/06/17 04:00) Prothrombin Time / Inr (Pt) (10/06/17 04:00) Magnesium (Mg) (10/06/17 04:00) Calender Machine Operator / Telemetry SHEBA.Q8H (10/05/17 12:43) Scd Bilateral/Knee High SHEBA.BID (10/05/17 12:43) ^ Initiate Protocol (10/05/17 12:43) Instruction (10/05/17 12:43) [facility] [place] [facility] Information (10/05/17 12:45) Chlorhexidine 2% Cloth (Chlorhexidine 2% (10/06/17 04:00) Chlorhexidine 2% Cloth (Chlorhexidine 2% (10/05/17 12:45) Mrsa Pcr Surveillance (10/05/17 12:43) Docusate Sodium-Senna (Coleen-Colace) (10/05/17 21:00) Magnesium Hydroxide Liq (Milk Of Magnesi (10/05/17 12:45) Sennosides (Senokot) (10/05/17 12:45) Bisacodyl Supp (Dulcolax Supp) (10/05/17 12:45) Lactulose Liq (Lactulose Liq) (10/05/17 12:45) Inpatient Certification (10/05/17 ) Mannitol Inj (Mannitol Inj) (10/05/17 13:00) Admit Order (Ed Use Only) (10/05/17 12:45) Labs Laboratory Tests Test 10/05/17 11:35 White Blood Count 8.6 TH/MM3 Red Blood Count 4.34 MIL/MM3 Hemoglobin 12.4 GM/DL Hematocrit 35.4 % Mean Corpuscular Volume 81.5 FL Mean Corpuscular Hemoglobin 28.6 PG Mean Corpuscular Hemoglobin Concent 35.1 % Red Cell Distribution Width 14.4 % Platelet Count 276 TH/MM3 Mean Platelet Volume 7.8 FL Neutrophils (%) (Auto) 68.2 % Lymphocytes (%) (Auto) 20.1 % Monocytes (%) (Auto) 9.6 % Eosinophils (%) (Auto) 1.7 % Basophils (%) (Auto) 0.4 % Neutrophils # (Auto) 5.9 TH/MM3 Lymphocytes # (Auto) 1.7 TH/MM3 Monocytes # (Auto) 0.8 TH/MM3 Eosinophils # (Auto) 0.1 TH/MM3 Basophils # (Auto) 0.0 TH/MM3 CBC Comment DIFF FINAL Differential Comment Prothrombin Time 10.2 SEC Prothromb Time International Ratio 1.0 RATIO Activated Partial Thromboplast Time 23.8 SEC Blood Urea Nitrogen 14 MG/DL Creatinine 0.85 MG/DL Random Glucose 114 MG/DL Total Protein 7.2 GM/DL Albumin 3.4 GM/DL Calcium Level 9.1 MG/DL Magnesium Level 1.9 MG/DL Alkaline Phosphatase 79 U/L Aspartate Amino Transf (AST/SGOT) 16 U/L Alanine Aminotransferase (ALT/SGPT) 15 U/L Total Bilirubin 0.4 MG/DL Sodium Level 139 MEQ/L Potassium Level 3.4 MEQ/L Chloride Level 104 MEQ/L Carbon Dioxide Level 26.9 MEQ/L Anion Gap 8 MEQ/L Estimat Glomerular Filtration Rate 63 ML/MIN Total Creatine Kinase 40 U/L Troponin I LESS THAN 0.02 NG/ML Thyroid Stimulating Hormone 3rd Gen 2.340 uIU/ML MDM Medical Decision Making Medical Screen Exam Complete: Yes Emergency Medical Condition: Yes Medical Record Reviewed: Yes Interpretation(s) CBC & BMP Diagram 10/05/17 11:35 Total Protein 7.2, Albumin 3.4, Calcium Level 9.1, Magnesium Level 1.9, Alkaline Phosphatase 79, Aspartate Amino Transf (AST/SGOT) 16, Alanine Aminotransferase (ALT/SGPT) 15, Total Bilirubin 0.[address] 10/05/17 1126 Signed Impressions: Service Date/Time: Thursday, October 05, 2017 11:45 - CONCLUSION: Large acute epidural hematoma along the left frontoparietal region measuring 21 mm in width and resulting in 8 mm of subfalcine herniation to the right. Acute subdural components are also noted within left posterior parietal region. Mg Magallon MD Chest X-Ray 10/05/17 1126 Signed Impressions: Service Date/Time: Thursday, October 05, 2017 12:11 - CONCLUSION: 1. Mild hepatomegaly. 2. No acute focal pulmonary infiltrate or pulmonary vascular congestion. Mg Magallon MD Lumbar Spine CT 10/05/17 0000 Signed Impressions: Service Date/Time: Thursday, October 05, 2017 11:50 - CONCLUSION: 1. Moderate compression deformity involving L3 of indeterminate age. 2. Grade I anterolisthesis of L4 relation to L5. 3. Severe spinal stenosis and moderate bilateral foraminal narrowing at L4-5. 4. Moderate spondylosis and bilateral foraminal narrowing at L2-3. 5. Moderate spinal stenosis and mild bilateral foraminal narrowing at L3-4. 6. Mild spinal stenosis and moderate to severe bilateral foraminal narrowing at L5-S1. 7. Facet joint hypertrophy bilaterally throughout the lumbar spine. 8. Uncomplicated sigmoid diverticulosis. Mg Magallon MD Hip and Pelvis X-Ray 10/05/17 0000 Signed Impressions: Service Date/Time: Thursday, October 05, 2017 12:03 - CONCLUSION: 1. No acute fracture or dislocation. 2. Degenerative changes involving the lower lumbar spine, bilateral hips and symphysis pubis. Mg Magallon MD Coags within normal limits. EKG shows sinus rhythm with no sign of acute ischemia read negative by me and attending. Troponin and CK-MB negative. Differential Diagnosis Trauma versus head injury versus syncope versus dizziness versus CVA versus ACS versus fracture versus dehydration versus electrolyte abnormality Narrative Course 87-year-old female that presents to the ED for evaluation of fall. Patient was properly examined and was found to have signs and symptoms concerning for follow -up possible bony injuries. On my examination patient does appear to have some confusion and friend who is at bedside does appear to be concerning about this as well as she appears to minimize all of her symptoms. At this time I recommend labs and imaging. Labs and imaging were ordered. Patient agrees to proceed. Labs and imaging showed epidural hematoma which appears to be acute as well as L3 compression fracture. This was discussed in my attending Dr mahajan who agrees with plan. Case was immediately discussed with Dr. Ramos over the phone who was made aware of findings and wants the patient admitted to the home care giver Dr. Preston who agreed to admission. Patient will be sent to the or to get craniotomy to help with the symptoms. Patient was told all information and agrees with proceeding with plan. She was admitted. Diagnosis Primary Impression: Acute subdural hematoma Additional Impression: Compression fracture of L3 lumbar vertebra Qualified Codes: S32.030A - Wedge compression fracture of third lumbar vertebra, initial encounter for closed fracture Admitting Information Admitting Physician Requests: Admit Manuel Kramer Oct 05, 2017 11:41
[2017-10-05 11:51] LABS: AUTOMATED NEUTROPHIL # 5.9 TH/MM3 (1.8-7.7); BASOPHIL % 0.4 % (0.0-2.0); EOSINOPHIL # 0.1 TH/MM3 (0-0.4); EOSINOPHIL % 1.7 % (0.0-4.0); HEMATOCRIT 35.4 % (35.0-46.0); HEMOGLOBIN 12.4 GM/DL (11.6-15.3); LYMPH % 20.1 % (9.0-44.0); LYMPHOCYTE # 1.7 TH/MM3 (1.0-4.8); MEAN CELL VOLUME 81.5 FL (80.0-100.0); MEAN CORPUSCULAR HEMOGLOBIN 28.6 PG (27.0-34.0); MEAN CORPUSCULAR HGB CONC 35.1 % (32.0-36.0); MEAN PLATELET VOLUME 7.8 FL (7.0-11.0); MONO % 9.6 % (0.0-8.0); MONOCYTE # 0.8 TH/MM3 (0-0.9); NEUT % 68.2 % (16.0-70.0); PLATELET COUNT 276 TH/MM3 (150-450); RED BLOOD COUNT 4.34 MIL/MM3 (4.00-5.30); RED CELL DISTRIBUTION WIDTH 14.4 % (11.6-17.2); WHITE BLOOD COUNT 8.6 TH/MM3 (4.0-11.0)
[2017-10-05 12:00] LABS: PROTHROMBIN TIME - PATIENT 10.2 SEC (9.8-11.6)
[2017-10-05] MEDS ORDERED: NEOSTIGMINE 5 MG/5 ML SYRINGE IV PUSH ONE (12:00)
[2017-10-05] MEDS ORDERED: ONDANSETRON HCL 4 MG/2 ML VIAL IV ONE (12:00)
[2017-10-05] MEDS ORDERED: ePHEDrine/NS 25 MG/5 ML SYRINGE IV ONE (12:00)
[2017-10-05] MEDS ORDERED: DEXAMETHASONE SOD PHOS 4 MG/ML VIAL IV ONE (12:00)
[2017-10-05] MEDS ORDERED: LABETALOL HCL 100 MG/20 ML VIAL IV ONE (12:00)
[2017-10-05] MEDS ORDERED: GLYCOPYRROLATE 1 MG/5 ML SYRINGE IV PUSH ONE (12:00)
[2017-10-05] MEDS ORDERED: PHENYLEPH/NS 1000 MCG/10 ML SYR IV ONE (12:00)
[2017-10-05] MEDS ORDERED: ROCURONIUM INJ 50 MG/5 ML VIAL IV ONE (12:00)
[2017-10-05] MEDS ORDERED: PROPOFOL 200 MG/20 ML AMP IV ONE (12:00)
[2017-10-05] MEDS ORDERED: ceFAZolin INJ 1,000 MG VIAL IV ONE (12:00)
[2017-10-05] MEDS ORDERED: LIDOCAINE HCL 1% PF 5 ML SYRINGE OTHER ONE (12:00)
--- NOTE | 2017-10-05 12:11 | RADRPT ---
EXAM DATE/TIME: 10/05/2017 11:45 [facility] COMPARISON: CT BRAIN W/O CONTRAST, July 25, 2017, 14:21. INDICATIONS : Fall 3 days ago. Dizziness. RADIATION DOSE: 47.19 CTDIvol (mGy) MEDICAL HISTORY : Hypertension. Prior bleed SURGICAL HISTORY : Brain surgery ENCOUNTER: Initial ACUITY: 3 days PAIN SCALE: 2/10 LOCATION: Bilateral cranial TECHNIQUE: Multiple contiguous axial images were obtained of the head. Using automated exposure control and adj ustment of the mA and/or kV according to patient size, radiation dose was kept as low as reasonably a chievable to obtain optimal diagnostic quality images. DICOM format image data is available electro nically for review and comparison. FINDINGS: There is evidence of a large acute epidural hematoma along the left frontoparietal region measuring 2 1 mm in width and resulting in 8 mm of subfalcine herniation to the right. Acute subdural components are also noted within the left posterior parietal region. The ventricles are unremarkable. CONCLUSION: Large acute epidural hematoma along the left frontoparietal region measuring 21 mm in width and resulting in 8 mm of subfalcine herniation to the right. Acute subdural components are als o noted within left posterior parietal region. Mg Magallon MD on October 05, 2017 at 12:06 Board Certified Radiologist. This report was verified electronically.
[2017-10-05 12:17] LABS: ALBUMIN 3.4 GM/DL (3.4-5.0); AST (GOT) 16 U/L (15-37); BICARBONATE 26.9 MEQ/L (21.0-32.0); BLOOD UREA NITROGEN 14 MG/DL (7-18); CALCIUM 9.1 MG/DL (8.5-10.1); CHLORIDE 104 MEQ/L (98-107); CREATININE 0.85 MG/DL (0.50-1.00); GLOMERULAR FILTRATION RATE 63 ML/MIN (>89); GLUCOSE,RANDOM 114 MG/DL (74-106); MAGNESIUM 1.9 MG/DL (1.5-2.5); SODIUM (NA) 139 MEQ/L (136-145)
[2017-10-05 12:18] LABS: ALT (GPT) 15 U/L (10-53)
--- NOTE | 2017-10-05 12:19 | RADRPT ---
EXAM DATE/TIME: 10/05/2017 11:50 [facility] COMPARISON: No previous studies available for comparison. INDICATIONS : Fall 3 days ago. Back pain. RADIATION DOSE: 35.75 CTDIvol (mGy) MEDICAL HISTORY : Hypertension. Prior bleed SURGICAL HISTORY : Brain surgery ENCOUNTER: Initial ACUITY: 1 day PAIN SCALE: 5/10 LOCATION: Bilateral Paraspinal TECHNIQUE: Volumetric scanning of the lumbar spine was performed. Multiplanar reconstructions in the sagittal, coronal and oblique axial planes were performed. Using automated exposure control and adjustment of the mA and/or kV according to patient size, radiation dose was kept as low as reasonably achievable t o obtain optimal diagnostic quality images. DICOM format image data is available electronically for review and comparison. FINDINGS: There is a moderate compression deformity involving L3 of indeterminate age. There is grade I anterol isthesis of L4 in relation to L5. Severe disc space narrowing and vacuum disc phenomenon is noted at L5-S1. Moderate spinal stenosis and bilateral foraminal narrowing is noted at L2-3. Moderate spinal s tenosis and mild bilateral foraminal narrowing is noted at L3-4. Severe spinal stenosis and moderate bilateral foraminal narrowing is noted at L4-5. Mild spinal stenosis and moderate to severe bilateral foraminal narrowing is noted at L5-S1. Facet joint hypertrophy is noted bilaterally at all levels wi thin the lumbar spine. Extensive diverticulosis is noted involving the sigmoid colon. CONCLUSION: 1. Moderate compression deformity involving L3 of indeterminate age. 2. Grade I anterolisthesis of L4 relation to L5. 3. Severe spinal stenosis and moderate bilateral foraminal narrowing at L4-5. 4. Moderate spondylosis and bilateral foraminal narrowing at L2-3. 5. Moderate spinal stenosis and mild bilateral foraminal narrowing at L3-4. 6. Mild spinal stenosis and moderate to severe bilateral foraminal narrowing at L5-S1. 7. Facet joint hypertrophy bilaterally throughout the lumbar spine. 8. Uncomplicated sigmoid diverticulosis. Mg Magallon MD on October 05, 2017 at 12:10 Board Certified Radiologist. This report was verified electronically.
[2017-10-05 12:27] LABS: ALKALINE PHOSPHATASE 79 U/L (45-117); TOTAL BILIRUBIN ADULT 0.4 MG/DL (0.2-1.0); TOTAL PROTEIN 7.2 GM/DL (6.4-8.2); TROPONIN I LESS THAN 0.02 NG/ML (0.02-0.05)
--- NOTE | 2017-10-05 12:31 | RADRPT ---
EXAM DATE/TIME: 10/05/2017 12:11 [facility] COMPARISON: No previous studies available for comparison. INDICATIONS : Shortness of breath. MEDICAL HISTORY : Hypertension. SURGICAL HISTORY : None. ENCOUNTER: Initial ACUITY: 1 day PAIN SCORE: 0/10 LOCATION: Bilateral chest FINDINGS: The heart is mildly enlarged. The pulmonary vascular normal. The lungs are clear. CONCLUSION: 1. Mild hepatomegaly. 2. No acute focal pulmonary infiltrate or pulmonary vascular congestion. Mg Magallon MD on October 05, 2017 at 12:28 Board Certified Radiologist. This report was verified electronically.
--- NOTE | 2017-10-05 12:35 | PD ---
Physical Exam Date Seen by Provider: Oct 05, 2017 Time Seen by Provider: 12:33 Narrative 81-year-old female came to the emergency room with history of fall and head injury. She was seen by my PA and I'm supervising him. A CT scan of the head was done. As well as of the lower back. As per the radiologist patient has an acute left-sided epidural hematoma with midline shift and an L3 compression fracture. Dr. Ramos was consulted who wants the patient to be admitted to the intensive care unit. I went back and looked at the patient. She is awake and talking and answering questions. She seems a little confused which I'm not sure if that's her baseline or due to the hematoma. She does not appear to be in any significant distress however. Awaiting for the news wire photo operator to call back for admission. Data Data Last Documented VS Vital Signs Date Time Temp Pulse Resp B/P (MAP) Pulse Ox O2 Delivery O2 Flow Rate FiO2 10/05/17 11:37 77 16 118/56 (76) 95 Room Air 10/05/17 11:09 98.2 Orders Orders Electrocardiogram (10/05/17 11:26) Complete Blood Count With Diff (10/05/17 11:26) Comprehensive Metabolic Panel (10/05/17 11:26) Ckmb (Isoenzyme) Profile (10/05/17 11:26) Troponin I (10/05/17 11:26) Prothrombin Time / Inr (Pt) (10/05/17 11:26) Act Partial Throm Time (Ptt) (10/05/17 11:26) Magnesium (Mg) (10/05/17 11:26) Thyroid Stimulating Hormone (10/05/17 11:26) Chest, Single Ap (10/05/17 11:26) Ct Brain W/O Iv Contrast(Rout) (10/05/17 11:26) Iv Access Insert/Monitor (10/05/17 11:26) Ecg Monitoring (10/05/17 11:26) Oximetry (10/05/17 11:26) Orthostatic Vital Signs (10/05/17 11:26) Ct Lumb Spine W/O Contrast (10/05/17 ) Hip, Uni(Ap&Lat) W Ap Pelvis (10/05/17 ) Admit To Inpatient (10/05/17 ) Code Status (10/05/17 12:43) Vital Signs (Adult) SHEBA.Q1H (10/05/17 12:43) Activity Bed Rest (10/05/17 12:43) Elevate Head Of Bed (10/05/17 12:43) Diet Npo (10/05/17 Lunch) Sodium Chlor 0.9% 1000 Ml Inj (Ns 1000 M (10/05/17 12:43) Sodium Chloride 0.9% Flush (Ns Flush) (10/05/17 12:45) Sodium Chloride 0.9% Flush (Ns Flush) (10/05/17 21:00) Famotidine Inj (Pepcid Inj) (10/05/17 21:00) Albuterol-Ipratropium Neb (Duoneb Neb) (10/05/17 12:45) Complete Blood Count With Diff (10/06/17 04:00) Comprehensive Metabolic Panel (10/06/17 04:00) Prothrombin Time / Inr (Pt) (10/06/17 04:00) Magnesium (Mg) (10/06/17 04:00) Addiction Professional / Telemetry SHEBA.Q8H (10/05/17 12:43) Scd Bilateral/Knee High SHEBA.BID (10/05/17 12:43) ^ Initiate Protocol (10/05/17 12:43) Instruction (10/05/17 12:43) [facility] Information (10/05/17 12:45) Chlorhexidine 2% Cloth (Chlorhexidine 2% (10/06/17 04:00) Chlorhexidine 2% Cloth (Chlorhexidine 2% (10/05/17 12:45) Mrsa Pcr Surveillance (10/05/17 12:43) Docusate Sodium-Senna (Coleen-Colace) (10/05/17 21:00) Magnesium Hydroxide Liq (Milk Of Magnesi (10/05/17 12:45) Sennosides (Senokot) (10/05/17 12:45) Bisacodyl Supp (Dulcolax Supp) (10/05/17 12:45) Lactulose Liq (Lactulose Liq) (10/05/17 12:45) Inpatient Certification (10/05/17 ) Mannitol Inj (Mannitol Inj) (10/05/17 13:00) Admit Order (Ed Use Only) (10/05/17 12:45) Labs Laboratory Tests Test 10/05/17 11:35 White Blood Count 8.6 TH/MM3 Red Blood Count 4.34 MIL/MM3 Hemoglobin 12.4 GM/DL Hematocrit 35.4 % Mean Corpuscular Volume 81.5 FL Mean Corpuscular Hemoglobin 28.6 PG Mean Corpuscular Hemoglobin Concent 35.1 % Red Cell Distribution Width 14.4 % Platelet Count 276 TH/MM3 Mean Platelet Volume 7.8 FL Neutrophils (%) (Auto) 68.2 % Lymphocytes (%) (Auto) 20.1 % Monocytes (%) (Auto) 9.6 % Eosinophils (%) (Auto) 1.7 % Basophils (%) (Auto) 0.4 % Neutrophils # (Auto) 5.9 TH/MM3 Lymphocytes # (Auto) 1.7 TH/MM3 Monocytes # (Auto) 0.8 TH/MM3 Eosinophils # (Auto) 0.1 TH/MM3 Basophils # (Auto) 0.0 TH/MM3 CBC Comment DIFF FINAL Differential Comment Prothrombin Time 10.2 SEC Prothromb Time International Ratio 1.0 RATIO Activated Partial Thromboplast Time 23.8 SEC Blood Urea Nitrogen 14 MG/DL Creatinine 0.85 MG/DL Random Glucose 114 MG/DL Total Protein 7.2 GM/DL Albumin 3.4 GM/DL Calcium Level 9.1 MG/DL Magnesium Level 1.9 MG/DL Alkaline Phosphatase 79 U/L Aspartate Amino Transf (AST/SGOT) 16 U/L Alanine Aminotransferase (ALT/SGPT) 15 U/L Total Bilirubin 0.4 MG/DL Sodium Level 139 MEQ/L Potassium Level 3.4 MEQ/L Chloride Level 104 MEQ/L Carbon Dioxide Level 26.9 MEQ/L Anion Gap 8 MEQ/L Estimat Glomerular Filtration Rate 63 ML/MIN Total Creatine Kinase 40 U/L Troponin I LESS THAN 0.02 NG/ML Vitamin B12 Level 316 PG/ML Thyroid Stimulating Hormone 3rd Gen 2.340 uIU/ML MDM Supervised Visit with JOHN: Akhil Brar MD Oct 05, 2017 12:35
--- NOTE | 2017-10-05 12:37 | RADRPT ---
EXAM DATE/TIME: 10/05/2017 12:03 [facility] COMPARISON: No previous studies available for comparison. INDICATIONS : Left hip pain, fall. MEDICAL HISTORY : None. SURGICAL HISTORY : None. ENCOUNTER: Initial ACUITY: 1 day PAIN SCORE: 10/10 LOCATION: Left proximal hip FINDINGS: There is no acute fracture or dislocation. Degenerative changes are noted involving the lower lumbar spine, bilateral hips and symphysis pubis. CONCLUSION: 1. No acute fracture or dislocation. 2. Degenerative changes involving the lower lumbar spine, bilateral hips and symphysis pubis. Mg Magallon MD on October 05, 2017 at 12:33 Board Certified Radiologist. This report was verified electronically.
[2017-10-05] MEDS ORDERED: SODIUM CHLOR 0.9% 1000 ML INJ 1,000 ML IV SCH (12:43)
[2017-10-05] MEDS ORDERED: LACTULOSE SYRUP 20 GM/30 ML CUP PO PRN (12:45)
[2017-10-05] MEDS ORDERED: BISACODYL 10 MG SUPP RECTAL PRN ×2 (12:45→15:15)
[2017-10-05] MEDS ORDERED: SENNOSIDES 8.6 MG TAB PO PRN (12:45)
[2017-10-05] MEDS ORDERED: CHLORHEXIDINE GLUCONATE 2 % 1 PACK (2 CLOTHS) TOP PRN (12:45)
[2017-10-05] MEDS ORDERED: MISCELLANEOUS NURSING INFORMATION XX SCH (12:45)
[2017-10-05] MEDS ORDERED: SODIUM CHLORIDE 0.9% FLUSH 10 ML FLUSH IV FLUSH PRN (12:45)
[2017-10-05] MEDS ORDERED: RESP: ALBUTEROL 2.5 MG/IPRATROPIUM 0.5 MG NEB (PRN) INH (12:45)
[2017-10-05] MEDS ORDERED: GENTAMICIN SULFATE 80 MG/2 ML VIAL ONE (12:58)
[2017-10-05] MEDS ORDERED: LIDOCAINE 2%/EPINEPHrine PF 1:200,000 20ML SDV ONE (12:58)
[2017-10-05] MEDS ORDERED: THROMBIN (TOPICAL) 5,000 UNIT VIAL ONE (12:58)
[2017-10-05] MEDS ORDERED: GELFOAM SIZE 100 ONE (12:58)
[2017-10-05] MEDS ORDERED: MANNITOL 12.5 GM/50 ML VIAL IV ONE (13:00)
[2017-10-05] MEDS ORDERED: POTASSIUM PHOSPHATE MONOBASIC 500 MG TAB PO PRN (13:00)
[2017-10-05] MEDS ORDERED: POTASSIUM PHOSPHATE MONOBASIC 500 MG TAB PO/TUBE PRN (13:00)
[2017-10-05] MEDS ORDERED: POTASSIUM PHOSPHATE INJ 30 MMOL in SODIUM CHLOR 0.9% 250 ML INJ 250 ML IV PRN (13:00)
[2017-10-05] MEDS ORDERED: MAGNESIUM SULFATE INJ 4 GM in SODIUM CHLORIDE 0.9% INJ 92 ML IV PRN (13:00)
[2017-10-05] MEDS ORDERED: POTASSIUM CHLOR 20 MEQ PREMIX 100 ML IV PRN ×3 (13:00→15:15)
[2017-10-05] MEDS ORDERED: POTASSIUM CHLORIDE 25 MEQ EFFERVESCENT TAB PO PRN (13:00)
[2017-10-05] MEDS ORDERED: MAGNESIUM SULFATE INJ 2 GM in SODIUM CHLORIDE 0.9% INJ 96 ML IV PRN (13:00)
[2017-10-05] MEDS ORDERED: MAGNESIUM OXIDE 400 MG TAB PO PRN (13:00)
[2017-10-05] MEDS ORDERED: SODIUM PHOSPHATE INJ 30 MMOL in SODIUM CHLOR 0.9% 250 ML INJ 240 ML IV PRN (13:00)
[2017-10-05] MEDS ORDERED: POTASSIUM CHLOR 40 MEQ PREMIX 100 ML IV PRN ×2 (13:00)
--- NOTE | 2017-10-05 13:03 | HHI.HP ---
[facility] Service Critical Care Medicine Primary Care Physician Wili Hernandez MD Admission Diagnosis acute left epidural hematoma, L3 compression fracture Diagnosis: (1) Traumatic Left epidural hematoma with midline shift Diagnosis: Principal (2) Midline shift of brain Diagnosis: Principal (3) Acute subdural hematoma Diagnosis: Principal (4) Status post fall Diagnosis: Principal (5) Compression fracture of L3 lumbar vertebra Diagnosis: Principal (6) Severe lumbar spinal stenosis Diagnosis: Secondary (7) Hypertension, benign Diagnosis: Secondary (8) Hyperlipidemia Diagnosis: Secondary Chief Complaint: Status post fall with acute left-sided epidural and subdural hematoma Travel History International Travel<30 Days: No Contact w/Intl Traveler <30 Da: No Traveled to Known Affected Are: No History of Present Illness Patient is a 87-year-old female that presents to the ED after sustaining a fall 2-3 days ago apparently landed on her back. Denies hitting her head. Her friend reported patient had been intermittently confused after the fall also complaining of back pain and dizziness. Patient has a history of subdural hematoma which was evacuated by Dr. Ramos June 2017. CT head showed large acute epidural hematoma along the left frontoparietal region measuring 21 mm with 8 mm of subfalcine herniation to the right. Acute subdural components also noted within left posterior parietal region. CT of the lumbar spine showed L3 compression fracture of indeterminate age and severe lumbar spinal stenosis\ I evaluated the patient in the ED. Patient is alert awake pleasant, oriented to person and place. Cannot recall the exact date of previous subdural hematoma evacuation. I discussed with Dr. Ramos. Patient has a large epidural hematoma with mass effect. Emergency evacuation of the epidural hematoma is indicated and Dr. Ramos is agreeable. I have ordered stat mannitol 25 g IV 1 also will start on Keppra 500 mg IV every 12 for seizure prophylaxis Review of Systems ROS Limitations: Other (as per HPI) Past Family Social History Allergies: Coded Allergies: No Known Allergies (Verified Adverse Reaction, Unknown, 10/05/17) Past Medical History Previous TBI with subdural hematoma evacuation Hypertension Dyslipidemia GERD CAD Past Surgical History History of right-sided subdural hematoma evacuation 06/2017 Bilateral knee replacement Left hip arthroplasty Reported Medications Omeprazole 20 Mg Tab 20 Mg PO DAILY Alprazolam 0.25 Mg Tab 0.25 Mg PO BID PRN Amlodipine (Amlodipine Besylate) 10 Mg Tab 10 Mg PO DAILY Active Ordered Medications Reviewed Family History Denies significant history of stroke or heart disease Social History Drinks a glass of wine daily No tobacco use Physical Exam Vital Signs Vital Signs Date Time Temp Pulse Resp B/P (MAP) Pulse Ox O2 Delivery O2 Flow Rate FiO2 10/05/17 11:37 77 16 118/56 (76) 95 Room Air 10/05/17 11:09 98.2 84 16 150/106 (121) 97 Physical Exam GEN: 81-year-old pleasant female slightly confused intermittently SKIN: Warm and dry. HEAD: Atraumatic. Normocephalic. EYES: Pupils round, appears equal ENT: No nasal bleeding or discharge. Tongue is midline. No uvula deviation. NECK: Trachea midline. No JVD. CARDIOVASCULAR: Regular rate and rhythm. No murmurs RESPIRATORY: No accessory muscle use. Clear to auscultation. Breath sounds equal bilaterally. GASTROINTESTINAL: Abdomen soft, non-tender, nondistended. MUSCULOSKELETAL: Extremities without clubbing, cyanosis, or edema. + Pulses bilaterally. NEUROLOGICAL: Awake and alert and oriented 3 but does not recall date of previous surgery. No obvious cranial nerve deficits. Motor grossly within normal limits. Five out of 5 muscle strength in the arms and legs. Normal speech. Laboratory Laboratory Tests Test 10/05/17 11:35 White Blood Count 8.6 Red Blood Count 4.34 Hemoglobin 12.4 Hematocrit 35.4 Mean Corpuscular Volume 81.5 Mean Corpuscular Hemoglobin 28.6 Mean Corpuscular Hemoglobin Concent 35.1 Red Cell Distribution Width 14.4 Platelet Count 276 Mean Platelet Volume 7.8 Neutrophils (%) (Auto) 68.2 Lymphocytes (%) (Auto) 20.1 Monocytes (%) (Auto) 9.6 Eosinophils (%) (Auto) 1.7 Basophils (%) (Auto) 0.4 Neutrophils # (Auto) 5.9 Lymphocytes # (Auto) 1.7 Monocytes # (Auto) 0.8 Eosinophils # (Auto) 0.1 Basophils # (Auto) 0.0 CBC Comment DIFF FINAL Differential Comment Prothrombin Time 10.2 Prothromb Time International Ratio 1.0 Activated Partial Thromboplast Time 23.8 Blood Urea Nitrogen 14 Creatinine 0.85 Random Glucose 114 Total Protein 7.2 Albumin 3.4 Calcium Level 9.1 Magnesium Level 1.9 Alkaline Phosphatase 79 Aspartate Amino Transf (AST/SGOT) 16 Alanine Aminotransferase (ALT/SGPT) 15 Total Bilirubin 0.4 Sodium Level 139 Potassium Level 3.4 Chloride Level 104 Carbon Dioxide Level 26.9 Anion Gap 8 Estimat Glomerular Filtration Rate 63 Total Creatine Kinase 40 Troponin I LESS THAN 0.02 Thyroid Stimulating Hormone 3rd Gen 2.340 Result Diagram: 10/05/17 1135 10/05/[address] head: Large acute epidural hematoma along the left frontoparietal region measuring 21 mm in width with 8mm subfalcine herniation to the right. Acute subdural components are also noted within left posterior parietal region. Caprini VTE Risk Assessment Caprini VTE Risk Assessment: Mod/High Risk (score >= 2) VTE Pharm Contraindication: Hemorrhage Caprini Risk Assessment Model Point Value = 1 Point Value = 2 Point Value = 3 Point Value = 5 Age 41-60 Minor surgery BMI > 25 kg/m2 Swollen legs Varicose veins or History of unexplained or recurrent spontaneous Oral contraceptives or hormone replacement Sepsis (< 1 month) Serious lung disease, including pneumonia (< 1 month) Abnormal pulmonary function Acute myocardial infarction Congestive heart failure (< 1 month) History of inflammatory bowel disease Medical patient at bed rest Age 61-74 Arthroscopic surgery Major open surgery (> 45 min) Laparoscopic surgery (> 45 min) Malignancy Confined to bed (> 72 hours) Immobilizing plaster cast Central venous access Age >= 75 History of VTE Family history of VTE Factor V Leiden Prothrombin [id number] Lupus anticoagulant Anticardiolipin antibodies Elevated serum homocysteine Heparin-induced thrombocytopenia Other congenital or acquired thrombophilia Stroke (< 1 month) Elective arthroplasty Hip, pelvis, or leg fracture Acute spinal cord injury (< 1 month) Prophylaxis Regimen Total Risk Factor Score Risk Level Prophylaxis Regimen 0-1 Low Early ambulation 2 Moderate Order ONE of the following: *Sequential Compression Device (SCD) *Heparin 5000 units SQ BID 3-4 Higher Order ONE of the following medications: *Heparin 5000 units SQ TID *Enoxaparin/Lovenox 40 mg SQ daily (WT < 150 kg, CrCl > 30 mL/min) *Enoxaparin/Lovenox 30 mg SQ daily (WT < 150 kg, CrCl > 10-29 mL/min) *Enoxaparin/Lovenox 30 mg SQ BID (WT < 150 kg, CrCl > 30 mL/min) AND/OR *Sequential Compression Device (SCD) 5 or more Highest Order ONE of the following medications: *Heparin 5000 units SQ TID (Preferred with Epidurals) *Enoxaparin/Lovenox 40 mg SQ daily (WT < 150 kg, CrCl > 30 mL/min) *Enoxaparin/Lovenox 30 mg SQ daily (WT < 150 kg, CrCl > 10-29 mL/min) *Enoxaparin/Lovenox 30 mg SQ BID (WT < 150 kg, CrCl > 30 mL/min) AND *Sequential Compression Device (SCD) Assessment and Plan Assessment and Plan NEURO: Acute traumatic left-sided epidural hematoma and subdural hematoma 8mm left to right midline shift Acute encephalopathy Previous history of right-sided subdural hematoma - IV mannitol 25 g stat - OR with Dr. Ramos emergently - Keep sodium 145-150 - Keppra for seizure prophylaxis - Fall evaluation, PT/OT post op RESP: - Nasal cannula oxygen - Aggressive pulmonary toilet, DuoNeb every 6 hours when necessary CV: - Normal saline IV fluids 84 ml per hour - Check 2 D Echo, Carotid Doppler - Cycle cardiac enzymes - Target SBP <150 GI: - Nothing by mouth, IV famotidine - Bowel regimen postop : - Monitor renal function closely. Fernandez catheter. ID: - Perioperative antibiotics per Dr. Ramos - Check UA HEME: - Monitor CBC, CMP ENDO: Hypokalemia - Electrolyte replacement per protocol PROPH: - Bilateral lower extremity SCDs/CARMELO. IV Protonix for GI prophylaxis - Chemical DVT prophylaxis is contraindicated LINES: - Utilize peripheral IVs, central line if needed CC time 35 min Critically ill with large epidural subdural hemorrhage on the left side with midline shift. Need emergency surgery. Further recommendations post op Code Status Full Discussed Condition With Lisbeth Ramos and Leon Problem Qualifiers (1) Compression fracture of L3 lumbar vertebra: Qualified Codes: S32.030A - Wedge compression fracture of third lumbar vertebra , initial encounter for closed fracture Boni Preston MD Oct 05, 2017 13:03
--- NOTE | 2017-10-05 13:22 | PD.CONS ---
HPI Service Neurosurgery Consult Requested By [place] emergency room doctor [place] Reason for Consult sudural hematoma Primary Care Physician Wili Hernandez MD History of Present Illness This is a 87-year-old female who was brought to [facility] after sustaining a fall 2-3 days ago apparently landed on her left buttocks. Denies hitting her head. No LOC. No seizure activity. no tongue bitting. No incontinence of stool or urine. Her friend reported patient had been intermittently confused after the fall also complaining of back pain and dizziness. Patient has a history of a right sided subdural hematoma which was evacuated in June 2017. CT head showed large acute epidural hematoma along the left frontoparietal region measuring 21 mm eith 8 mm of subfalcine herniation to the right. Acute subdural components also noted within left posterior parietal region. CT of the lumbar spine showed L3 compression fracture and severe lumbar spinal stenosis. Neurosurgical consultation was requested Review of Systems Constitutional: DENIES: Diaphoretic episodes, Fatigue, Fever, Weight gain, Weight loss, Chills, Dizziness, Change in appetite, Night Sweats Endocrine: DENIES: Abnorml menstrual pattern, Heat/cold intolerance, Polydipsia , Polyuria, Polyphagia Eyes: DENIES: Blurred vision, Diplopia, Eye inflammation, Eye pain, Vision loss , Photosensitivity, Double Vision Ears, nose, mouth, throat: COMPLAINS OF: Hearing loss, DENIES: Tinnitus, Vertigo, Nasal discharge, Oral lesions, Throat pain, Hoarseness, Ear Pain, Running Nose, Epistaxis, Sinus Pain, Toothache, Odynophagia Respiratory: DENIES: Apneas, Cough, Snoring, Wheezing, Hemoptysis, Sputum production, Shortness of breath Cardiovascular: DENIES: Chest pain, Palpitations, Syncope, Dyspnea on Exertion , PND, Lower Extremity Edema, Orthopnea, Claudication Gastrointestinal: DENIES: Abdominal pain, Black stools, Bloody stools, Constipation, Diarrhea, Nausea, Vomiting, Difficulty Swallowing, Anorexia Genitourinary: DENIES: Abnormal vaginal bleeding, Dysmenorrhea, Dyspareunia, Sexual dysfunction, Urinary frequency, Urinary incontinence, Urgency, Hematuria , Dysuria, Nocturia, Vaginal discharge Musculoskeletal: DENIES: Joint pain, Muscle aches, Stiffness, Joint Swelling, Back pain, Neck pain Integumentary: DENIES: Abnormal pigmentation, Pruritus, Rash, Nail changes, Breast masses, Breast skin changes, Nipple discharge Hematologic/lymphatic: DENIES: Bruising, Lymphadenopathy Immunologic/allergic: DENIES: Eczema, Urticaria Neurologic: COMPLAINS OF: Abnormal gait, Headache, Poor Balance, DENIES: Localized weakness, Paresthesias, Seizures, Speech Problems, Tremor Psychiatric: DENIES: Anxiety, Confusion, Mood changes, Depression, Hallucinations, Agitation, Suicidal Ideation, Homicidal Ideation, Delusions Past Family Social History Allergies: Coded Allergies: No Known Allergies (Verified Adverse Reaction, Unknown, 10/05/17) Past Medical History Previous TBI with subdural hematoma evacuation Hypertension Dyslipidemia GERD CAD History of right-sided subdural hematoma evacuation 06/2017 Bilateral knee replacement Left hip arthroplasty Reported Medications Omeprazole 20 Mg Tab 20 Mg PO DAILY Alprazolam 0.25 Mg Tab 0.25 Mg PO BID PRN Amlodipine (Amlodipine Besylate) 10 Mg Tab 10 Mg PO DAILY Active Ordered Medications Current Medications Sodium Chloride 1,000 ml @ 84 mls/hr [id number] IV ; Start 10/05/17 at 12:43 Sodium Chloride (NS Flush) 2 ml UNSCH PRN IV FLUSH FLUSH AFTER USING IV ACCESS ; Start 10/05/17 at 12:45 Sodium Chloride (NS Flush) 2 ml BID IV FLUSH ; Start 10/05/17 at 21:00 Famotidine (Pepcid Inj) 20 mg Q12HR IV PUSH ; Start 10/05/17 at 21:00 Albuterol/ Ipratropium (Duoneb Neb) 1 ampule Q2HR NEB PRN INH WHEEZING; Start 10/05/17 at 12:45 Miscellaneous Information 1 [id number] XX ; Start 10/05/17 at 12:45 Chlorhexidine Gluconate (Chlorhexidine 2% Cloth) 3 pack Taper DAILY@04 TOP ; Start 10/06/17 at 04:00; Stop 10/02/18 at 03:59 Chlorhexidine Gluconate (Chlorhexidine 2% Cloth) 3 pack UNSCH PRN TOP HYGIENIC CARE; Start 10/05/17 at 12:45 Senna/Docusate Sodium (Coleen-Colace) 1 tab BID PO ; Start 10/05/17 at 21:00 Magnesium Hydroxide (Milk Of Magnesia Liq) 30 ml Q12H PRN PO Mild constipation ; Start 10/05/17 at 12:45 Sennosides (Senokot) 17.2 mg Q12H PRN PO Moderate constipation; Start 10/05/17 at 12:45 Bisacodyl (Dulcolax Supp) 10 mg DAILY PRN RECTAL SEVERE CONSITIPATION; Start at 12:45 Lactulose (Lactulose Liq) 30 ml DAILY PRN PO SEVERE CONSITIPATION; Start at 12:45 Mannitol (Mannitol Inj) 25 gm ONCE ONCE IV ; Start 10/05/17 at 13:00; Stop at 13:17; Status DC Thrombin (Thrombin Top Soln) 15,000 units STK-MED ONCE .ROUTE ; Start 10/05/17 at 12:58; Stop 10/05/17 at 12:59; Status DC Gelatin (Gelfoam 100 Top) 3 foam STK-MED ONCE .ROUTE ; Start 10/05/17 at 12:58; Stop 10/05/17 at 12:59; Status DC Lidocaine/ Epinephrine (Xylocaine-Epi Mpf 2%-1:200,000 Inj) 20 ml STK-MED ONCE .ROUTE ; Start 10/05/17 at 12:58; Stop 10/05/17 at 12:59; Status DC Gentamicin Sulfate (Gentamicin Inj) 240 mg STK-MED ONCE .ROUTE ; Start 10/05/17 at 12:58; Stop 10/05/17 at 12:59; Status DC Levetriacetam 500 mg/Sodium Chloride 105 ml @ 420 mls/hr Q12H IV ; Start at 15:00 Potassium Chloride 100 ml @ 50 mls/hr Q2H PRN IV For Potassium 2.8 - 3.2 mEq/L ; Start 10/05/17 at 13:00 Potassium Chloride 100 ml @ 50 mls/hr Q2H PRN IV For Potassium 2.8 - 3.2 mEq/L ; Start 10/05/17 at 13:00 Potassium Bicarb/ Potassium Chloride (K-Lyte Cl Eff) 50 meq UNSCH PRN PO For Potassium 3.3 - 3.5 mEq/L; Start 10/05/17 at 13:00 Potassium Chloride 100 ml @ 25 mls/hr UNSCH PRN IV For Potassium 3.3 - 3.5 mEq /L; Start 10/05/17 at 13:00 Potassium Chloride 100 ml @ 50 mls/hr Q2H PRN IV For Potassium 3.3 - 3.5 mEq/L ; Start 10/05/17 at 13:00 Magnesium Sulfate 4 gm/Sodium Chloride 100 ml @ 50 mls/hr UNSCH PRN IV For Magnesium 0.9 - 1.1 mg/dL; Start 10/05/17 at 13:00 Magnesium Oxide (Mag-Ox) 800 mg UNSCH PRN PO For Magnesium 1.2 - 1.6 mg/dL; Start 10/05/17 at 13:00 Magnesium Sulfate 2 gm/Sodium Chloride 100 ml @ 50 mls/hr UNSCH PRN IV For Magnesium 1.2 - 1.6 mg/dL; Start 10/05/17 at 13:00 Potassium Phosphate (K-Phos) 2,000 mg Q4H PRN PO For Phosphorus < 2.5 mg/dL; Start 10/05/17 at 13:00 Sodium Phosphate 30 mmol/Sodium Chloride 250 ml @ 42 mls/hr UNSCH PRN IV For Phosphorus < 2.5 mg/dL; Start 10/05/17 at 13:00 Potassium Phosphate (K-Phos) 2,000 mg UNSCH PRN PO/TUBE SEE LABEL COMMENTS; Start 10/05/17 at 13:00 Potassium Phosphate 30 mmol/ Sodium Chloride 260 ml @ 42 mls/hr UNSCH PRN IV SEE LABEL COMMENTS; Start 10/05/17 at 13:00 Thiamine HCl 100 mg/Sodium Chloride 101 ml @ 101 mls/hr DAILY IV ; Start at 15:00; Stop 10/09/17 at 08:59 Levetriacetam (Keppra Inj) 500 mg STK-MED ONCE IV ; Start 10/05/17 at 14:27; Stop 10/05/17 at 14:28; Status DC Potassium Chloride/Sodium Chloride 1,000 ml @ 100 mls/hr Q10H IV ; Start at 15:01; Status UNV Cefazolin Sodium/ Dextrose 50 ml @ 100 mls/hr Q8H IV ; Start 10/05/17 at 15:15; Stop 10/06/17 at 07:44; Status UNV Levetriacetam 500 mg/Sodium Chloride 105 ml @ 400 mls/hr Q12H IV ; Start at 15:15; Status UNV Bisacodyl (Dulcolax Supp) 10 mg DAILY PRN [place] CONSTIPATION; Start 10/05/17 at 15: 15; Status UNV Docusate Sodium (Colace) 100 mg BID PO ; Start 10/05/17 at 21:00; Status UNV Pantoprazole Sodium (Protonix) 40 mg DAILY PO ; Start 10/06/17 at 09:00; Status UNV Pantoprazole Sodium (Protonix Inj) 40 mg DAILY IVP ; Start 10/06/17 at 09:00; Status UNV Ondansetron HCl (Zofran Inj) 4 mg Q6H PRN IV PUSH NAUSEA OR VOMITING; Start 10/05/17 at 15:15; Status UNV Calcium Gluconate (Calcium Gluconate Inj) 1 gm UNSCH PRN IV SEE LABEL COMMENTS ; Start 10/05/17 at 15:15; Status UNV Potassium Chloride 100 ml @ 50 mls/hr UNSCH PRN IV POTASSIUM LESS THAN 4; Start 10/05/17 at 15:15; Status UNV Magnesium Sulfate 4 gm/Sodium Chloride 108 ml @ 108 mls/hr UNSCH PRN IV MAGNESIUM LESS THAN 2; Start 10/05/17 at 15:15; Status UNV Acetaminophen/ Hydrocodone Bitart (Shell 10-325 Mg) 1 tab Q4H PRN PO PAIN SCALE 1 TO 5; Start 10/05/17 at 15:15; Status UNV Acetaminophen/ Hydrocodone Bitart (Shell 10-325 Mg) 2 tab Q4H PRN PO PAIN SCALE 6 TO 10; Start 10/05/17 at 15:15; Status UNV Morphine Sulfate (Morphine Inj) 2 mg Q2H PRN IV PUSH PAIN SCALE 1 TO 6; Start 10/05/17 at 15:15; Status UNV Morphine Sulfate (Morphine Inj) 4 mg Q2H PRN IV PUSH PAIN SCALE 7 TO 10; Start 10/05/17 at 15:15; Status UNV Acetaminophen (Tylenol) 650 mg Q4H PRN PO TEMPERATURE > 101.5 F; Start 10/05/17 at 15:15; Status UNV Family History Reviewed. Denies significant history of stroke or heart disease Social History Drinks a glass of wine daily No tobacco use Physical Exam Vital Signs Vital Signs Date Time Temp Pulse Resp B/P (MAP) Pulse Ox O2 Delivery O2 Flow Rate FiO2 10/05/17 13:13 10/05/17 11:37 77 16 118/56 (76) 95 Room Air 10/05/17 11:09 98.2 84 16 150/106 (121) 97 Physical Exam The patient is alert, awake and oriented to time, place and person. Speech is fluent. Higher cognitive functions are normal. Cranial nerve examination demonstrates the pupils to be equal, round, and reactive to light. Extra-ocular movements are intact. Facial motor and sensory function are normal and symmetrical. Gross hearing is decreased. The uvula is midline and elevates symmetrically with the soft palate. Sternocleidomastoid and trapezius muscles have normal and symmetrical strength. Other cranial nerves are intact. Neck is soft and supple. Cervical spine has a decreased range of motion in anterior flexion, extension, lateral bending, and rotation without pain. There is no tenderness to palpation to the spinous processes or paraspinal muscles. Muscle testing reveals normal bulk and tone overall without rigidity, spasticity , fasciculations, or atrophy. Muscle strength is 5/5 in all muscle groups of both upper extremities including deltoid, biceps, triceps, brachioradialis, wrist extension and guest relations receptionist. In the lower extremities, strength is 5/5 in both iliopsoas, quadriceps, hamstrings, plantar flexion, dorsiflexion, and extensor hallicus longus. Sensory examination is intact to light touch and sharp/dull discrimination in both the upper and lower extremities, symmetrically. Deep tendon reflexes are 2+ and symmetrical in the biceps, triceps, and brachioradialis, bilaterally, in the upper extremities. In the lower extremities , the patellar and Achilles are 2+, bilaterally. There is a bilateral plantar flexion response. Hoffmanns sign is negative. There is no clonus or other abnormal reflexes noted. Cerebellar examination is intact to [id number] test, rapid rhythmic alternating motion. There is no dysmetria, dysdiadochokinesia, truncal ataxia, or tremor. Laboratory Laboratory Tests Test 10/05/17 11:35 White Blood Count 8.6 Red Blood Count 4.34 Hemoglobin 12.4 Hematocrit 35.4 Mean Corpuscular Volume 81.5 Mean Corpuscular Hemoglobin 28.6 Mean Corpuscular Hemoglobin Concent 35.1 Red Cell Distribution Width 14.4 Platelet Count 276 Mean Platelet Volume 7.8 Neutrophils (%) (Auto) 68.2 Lymphocytes (%) (Auto) 20.1 Monocytes (%) (Auto) 9.6 Eosinophils (%) (Auto) 1.7 Basophils (%) (Auto) 0.4 Neutrophils # (Auto) 5.9 Lymphocytes # (Auto) 1.7 Monocytes # (Auto) 0.8 Eosinophils # (Auto) 0.1 Basophils # (Auto) 0.0 CBC Comment DIFF FINAL Differential Comment Prothrombin Time 10.2 Prothromb Time International Ratio 1.0 Activated Partial Thromboplast Time 23.8 Blood Urea Nitrogen 14 Creatinine 0.85 Random Glucose 114 Total Protein 7.2 Albumin 3.4 Calcium Level 9.1 Magnesium Level 1.9 Alkaline Phosphatase 79 Aspartate Amino Transf (AST/SGOT) 16 Alanine Aminotransferase (ALT/SGPT) 15 Total Bilirubin 0.4 Sodium Level 139 Potassium Level 3.4 Chloride Level 104 Carbon Dioxide Level 26.9 Anion Gap 8 Estimat Glomerular Filtration Rate 63 Total Creatine Kinase 40 Troponin I LESS THAN 0.02 Thyroid Stimulating Hormone 3rd Gen 2.340 Result Diagram: 10/05/17 1135 10/05/17 1135 Assessment and Plan Assessment and Plan Caprini VTE Risk Assessment Caprini VTE Risk Assessment Caprini VTE Risk Assessment: Mod/High Risk (score >= 2) VTE Pharm Contraindication: Hemorrhage Caprini Risk Assessment Model Point Value = 1 Point Value = 2 Point Value = 3 Point Value = 5 Age 41-60 Minor surgery BMI > 25 kg/m2 Swollen legs Varicose veins or History of unexplained or recurrent spontaneous Oral contraceptives or hormone replacement Sepsis (< 1 month) Serious lung disease, including pneumonia (< 1 month) Abnormal pulmonary function Acute myocardial infarction Congestive heart failure (< 1 month) History of inflammatory bowel disease Medical patient at bed rest Age 61-74 Arthroscopic surgery Major open surgery (> 45 min) Laparoscopic surgery (> 45 min) Malignancy Confined to bed (> 72 hours) Immobilizing plaster cast Central venous access Age >= 75 History of VTE Family history of VTE Factor V Leiden Prothrombin [id number] Lupus anticoagulant Anticardiolipin antibodies Elevated serum homocysteine Heparin-induced thrombocytopenia Other congenital or acquired thrombophilia Stroke (< 1 month) Elective arthroplasty Hip, pelvis, or leg fracture Acute spinal cord injury (< 1 month) Prophylaxis Regimen Total Risk Factor Score Risk Level Prophylaxis Regimen 0-1 Low Early ambulation 2 Moderate Order ONE of the following: *Sequential Compression Device (SCD) *Heparin 5000 units SQ BID 3-4 Higher Order ONE of the following medications: *Heparin 5000 units SQ TID *Enoxaparin/Lovenox 40 mg SQ daily (WT < 150 kg, CrCl > 30 mL/min) *Enoxaparin/Lovenox 30 mg SQ daily (WT < 150 kg, CrCl > 10-29 mL/min) *Enoxaparin/Lovenox 30 mg SQ BID (WT < 150 kg, CrCl > 30 mL/min) AND/OR *Sequential Compression Device (SCD) 5 or more Highest Order ONE of the following medications: *Heparin 5000 units SQ TID (Preferred with Epidurals) *Enoxaparin/Lovenox 40 mg SQ daily (WT < 150 kg, CrCl > 30 mL/min) *Enoxaparin/Lovenox 30 mg SQ daily (WT < 150 kg, CrCl > 10-29 mL/min) *Enoxaparin/Lovenox 30 mg SQ BID (WT < 150 kg, CrCl > 30 mL/min) AND *Sequential Compression Device (SCD) Attending Statement Continue neuro checks in a serial fashion. I suspect that this is his subdural hematoma. Given the large size location on mass effect I recommend a surgical decompression via a left frontal temporal parietal craniotomy with evacuation of subdural hematoma.We have discussed the details including the [id number] details of the surgical procedure, its indications, alternatives, risks, and potential complications. Risks and potential complications include, but are not limited to, infection, blood loss, CSF leak, partial or complete loss of sight in one or both eyes, paresis, paralysis, permanent pain or difficulty swallowing, loss of bowel or bladder function, complications from anesthesia, blood clot, stroke, myocardial infarction, or even . Keppra for seizure prophylaxis A follow-up CT of the head will be obtained in 24 hours. Lumbar fracture. Non surgcal reatment for now. WIll consider kyphopasty acetaminophen/cooling blanket as needed for temperature greater than 100.4 Pulmonary. aggressive pulmonary toilette, nasotracheal suction, and breathing treatments with nebulizers. Nutrition. NPO Renal. monitor closely urine output, BUN and creatinine Fernandez. Monitor intake and output. Monitor electrolytes and replace as indicated per ICU electrolyte replacement protocol. ENDO: Monitor bedside glucose and initiate low-dose insulin sliding scale as indicated for glucose greater than 180 Protonix for stress ulcer prophylaxis Alonzo hose and SCD's for DVT prophylaxis. Yonatan Ramos MD Oct 05, 2017 13:22
[2017-10-05] MEDS ORDERED: ceFAZolin 2 GM PREMIX 50 ML IV ONE ×2 (14:00→15:54)
[2017-10-05] MEDS ORDERED: levETIRAcetam 500 MG/5 ML VIAL IV ONE (14:27)
[2017-10-05] MEDS: levETIRAcetam INJ 500 MG in SODIUM CHLORIDE 0.9% INJ 100 ML IV SCH (15:00)
[2017-10-05] MEDS: THIAMINE INJ 100 MG in SODIUM CHLORIDE 0.9% INJ 100 ML IV SCH (15:00)
--- NOTE | 2017-10-05 15:07 | PD.OP ---
Operative Report Date of Surgery: Oct 05, 2017 Preoperative Diagnosis: Left subdural hematoma Postoperative Diagnosis: Left subdural hematoma Procedure: Left frontal temporal parietal craniotomy, evacuation of subdural hematoma Anesthesia: general Surgeon: Yonatan Ramos Disc Recordist(s): [place] Operation and Findings: INDICATIONS FOR THE PROCEDURE Ms Becerra is a 87 year old male who was brought [facility] with recurrent falls. CT of the brain showed a large left subdural hematoma with increasing maximun thickness of 20mm, mass effect and midline shift. A surgical decompression was indicated as recommended by the Trauma Committee of [employer] I have discussed the details including the [id number] details of the surgical procedure, its indications, alternatives, risks, and potential complications. Risks and potential complications include, but are not limited to, infection, blood loss, CSF leak, partial or complete loss of sight in one or both eyes, paresis, paralysis, permanent pain or difficulty swallowing, loss of bowel or bladder function, complications from anesthesia, blood clot, stroke, myocardial infarction, or even . He fully understood. All his questions were answered. No guaranties were given. He voiced requesting the procedure and signed informed consents. He was offered the possibility of delaying the procedure and continues nonoperative treatment. DETAILS OF THE SURGICAL PROCEDURE After the induction of general anesthesia the patient was endotracheally intubated and mechanically ventilated. A Fernandez catheter, bilateral CARMELO hose and sequential compression devices were placed and kept throughout the procedure. The patient was positioned supine on a 3080 table over a soft mattress. The eyes were tapped shut after ointment was applied by the anesthesiologist to prevent corneal abrasion. A Keyla hugger was placed over the exposed lower body to maintain control of the core body temperature. The head was placed on a gel doughnut. All pressure points were carefully padded with egg crate mattress. The left frontal temporal parietal area was shaved, prepped and draped in the usual sterile fashion. Initially, a small linear incision was outlined on the scalp and infiltrated with 1% lidocaine with epinephrine. A skin incision was made with a #10 blade down to the level of the periosteum. Using the TPS drill and craniotome attachment, a kristy hole was made in the left temporal region. Small bleeders were coagulated with a bipolar. The dura was carefully coagulated with the bipolar in a cruciform fashion and opened with a 15 blade. There was a thick hematoma with associated thick membranes, and a proper decompression could not be achieved through the kristy hole. The incision was then extended with a #10 blade, and a withlander retractor was placed. Using the TPS and using the footplate attachment, a parietal craniotomy flap was elevated. The dura was bulging, with underlying dark coloration related to the subdural hematoma. The dura was opened with a 15 blade and metzembaun scissors and a the subdural hematoma was causing significant mass effect over the brain, was evacuated by gentle irrigation and sent to the lab for histologic analysis. The subdural membranes were opened under direct visualization, and bleeding was controlled using the bipolar education administrative assistant. Then the incision was irrigated with saline solution. The dural edges were tacked to the bone. The craniotomy flap was then repositioned and secured in place using Striker plates and screws. A 7 millimeter Darrick-Boggs drain was then left in the subdural space and externalized through a separate stab incision. The incision was then closed in layers. 0 Vicryl in interrupted sutures were used to close the temporalis fascia. The galea was closed with interrupted 3- 0 Vicryl. Brandie were applied to the skin. The drain was secured with a 3-0 nylon. At the end of the procedure, the sponge, needle and instrument counts were all correct. Estimated blood loss was less than 50 cc. No blood transfusion was given. No intraoperative complications occurred. The patient received prophylactic antibiotics. The patient was then transferred to the recovery room in stable condition. Yonatan Ramos MD Oct 05, 2017 15:07
[2017-10-05] MEDS ORDERED: ACETAMINOPHEN/HYDROcodone 325 MG/10 MG TAB PO PRN (15:15)
[2017-10-05] MEDS ORDERED: MAGNESIUM SULFATE INJ 4 GM in SODIUM CHLORIDE 0.9% INJ 100 ML IV PRN (15:15)
[2017-10-05] MEDS ORDERED: CALCIUM GLUCONATE 10% 1 GM/10 ML VIAL IV PRN (15:15)
[2017-10-05] MEDS ORDERED: ONDANSETRON HCL 4 MG/2 ML VIAL IV PUSH PRN (15:15)
[2017-10-05] MEDS ORDERED: MORPHINE SULFATE 4 MG/ML INJ IV PUSH PRN ×2 (15:15)
[2017-10-05] MEDS ORDERED: ACETAMINOPHEN 325 MG TAB PO PRN (15:15)
[2017-10-05] MEDS ORDERED: DO NOT ADM ANY ANTICOAGULANT DRUGS PRN (15:27)
[2017-10-05] MEDS ORDERED: *morphine SULFATE 8 MG/ML PERIprocedure ONLY ONE (15:40)
[2017-10-05] MEDS: NS + KCL 20 MEQ INJ 1,000 ML IV SCH (15:40)
[2017-10-05] MEDS ORDERED: levETIRAcetam INJ 500 MG in SODIUM CHLORIDE 0.9% INJ 100 ML IV SCH (16:00)
[2017-10-05] MEDS: ceFAZolin 2 GM PREMIX 50 ML IV SCH ×2 (16:00→23:52)
--- NOTE | 2017-10-05 18:42 | RADRPT ---
EXAM DATE/TIME: 10/05/2017 17:55 [facility] COMPARISON: No previous studies available for comparison. INDICATIONS : Syncope. MEDICAL HISTORY : Hypercholesterolemia. Hypertension. Gastroesophageal reflux disease. Hyperlipidemia. Arthritis. Subdu ral hematoma. SURGICAL HISTORY : Total knee replacement, bilateral. ENCOUNTER: Initial ACUITY: 1 day PAIN SCORE: Nonresponsive. LOCATION: Bilateral neck PEAK SYSTOLIC VELOCITIES (cm/sec): ICA/CCA RATIO: Right: 1.3 Left: 1.1 ICA: Right: 109.5 Left: 97.9 CCA: Right: 83.6 Left: 93.0 ECA: Right: 90.1 Left: 107.0 VERTEBRAL: Right: 50.3 antegrade Left: 45.9 antegrade Elevated flow velocities and ICA/CCA ratios have been found to correlate with increased degrees of vessel stenosis, calculated as percentage of diameter relative to a normal segment of distal ICA/CCA FINDINGS: Moderate heterogeneous plaque is identified in both carotid bifurcations. There is no evidence of lum inal compromise. RIGHT CAROTID: No significant stenosis is visualized. The waveforms are within normal limits. LEFT CAROTID: No significant stenosis is visualized. The waveforms are within normal limits. VERTEBRAL ARTERIES: Antegrade flow is seen in both vertebral arteries. MISCELLANEOUS: None. CONCLUSION: Moderate calcified plaque without evidence of hemodynamically significant stenosis. Antegrade flow both vertebral arteries. Wilber Stovall MD on October 05, 2017 at 18:38 Board Certified Radiologist. This report was verified electronically.
[2017-10-05] MEDS: SODIUM CHLORIDE 0.9% FLUSH 10 ML FLUSH IV FLUSH SCH (21:00)
[2017-10-05] MEDS: DOCUSATE SODIUM 50 MG/SENNA 8.6 MG TAB PO SCH (21:35)
[2017-10-05] MEDS: DOCUSATE SODIUM 100 MG CAP PO SCH (21:36)
[2017-10-05] MEDS: FAMOTIDINE 20 MG/2 ML VIAL IV PUSH SCH (21:36)
[2017-10-06] VITALS (20 sets, daily range): BP systolic 109–131; BP diastolic 55–84; PULSE 62–74; RESP 11–30; TEMP 97.6–98.7; O2SAT 92–100
[2017-10-06] MEDS ORDERED: MORPHINE SULFATE 2 MG/ML INJ IV PUSH PRN (00:15)
[2017-10-06] MEDS: NS + KCL 20 MEQ INJ 1,000 ML IV SCH ×2 (02:06→12:20)
[2017-10-06] MEDS: levETIRAcetam INJ 500 MG in SODIUM CHLORIDE 0.9% INJ 100 ML IV SCH ×2 (02:06→14:53)
[2017-10-06] MEDS: ACETAMINOPHEN/HYDROcodone 325 MG/10 MG TAB PO PRN ×3 (02:26→12:19)
[2017-10-06] MEDS: CHLORHEXIDINE GLUCONATE 2 % 1 PACK (2 CLOTHS) TOP SCH (04:00)
[2017-10-06 04:41] LABS: AUTOMATED NEUTROPHIL # 6.2 TH/MM3 (1.8-7.7); BASOPHIL % 0.1 % (0.0-2.0); HEMATOCRIT 34.2 % (35.0-46.0); HEMOGLOBIN 11.2 GM/DL (11.6-15.3); LYMPH % 11.8 % (9.0-44.0); LYMPHOCYTE # 0.9 TH/MM3 (1.0-4.8); MEAN CELL VOLUME 82.1 FL (80.0-100.0); MEAN CORPUSCULAR HEMOGLOBIN 26.8 PG (27.0-34.0); MEAN CORPUSCULAR HGB CONC 32.6 % (32.0-36.0); MEAN PLATELET VOLUME 7.8 FL (7.0-11.0); MONO % 8.2 % (0.0-8.0); MONOCYTE # 0.6 TH/MM3 (0-0.9); NEUT % 79.9 % (16.0-70.0); PLATELET COUNT 241 TH/MM3 (150-450); RED BLOOD COUNT 4.17 MIL/MM3 (4.00-5.30); RED CELL DISTRIBUTION WIDTH 14.2 % (11.6-17.2); WHITE BLOOD COUNT 7.8 TH/MM3 (4.0-11.0)
[2017-10-06 04:59] LABS: PROTHROMBIN TIME - PATIENT 10.3 SEC (9.8-11.6)
[2017-10-06 05:07] LABS: ALBUMIN 2.9 GM/DL (3.4-5.0); ALKALINE PHOSPHATASE 72 U/L (45-117); ALT (GPT) 16 U/L (10-53); AST (GOT) 14 U/L (15-37); BICARBONATE 28.5 MEQ/L (21.0-32.0); BLOOD UREA NITROGEN 16 MG/DL (7-18); CALCIUM 8.4 MG/DL (8.5-10.1); CHLORIDE 109 MEQ/L (98-107); CREATININE 0.77 MG/DL (0.50-1.00); GLOMERULAR FILTRATION RATE 71 ML/MIN (>89); GLUCOSE,RANDOM 127 MG/DL (74-106); MAGNESIUM 2.1 MG/DL (1.5-2.5); SODIUM (NA) 142 MEQ/L (136-145); TOTAL BILIRUBIN ADULT 0.4 MG/DL (0.2-1.0); TOTAL PROTEIN 6.4 GM/DL (6.4-8.2)
[2017-10-06] MEDS: DOCUSATE SODIUM 100 MG CAP PO SCH ×2 (07:48→21:57)
[2017-10-06] MEDS: ceFAZolin 2 GM PREMIX 50 ML IV SCH (07:48)
[2017-10-06] MEDS: PANTOPRAZOLE SOD 40 MG DELAYED RELEASE TAB PO SCH (07:49)
[2017-10-06] MEDS: FAMOTIDINE 20 MG/2 ML VIAL IV PUSH SCH (07:49)
[2017-10-06] MEDS: DOCUSATE SODIUM 50 MG/SENNA 8.6 MG TAB PO SCH (07:49)
[2017-10-06] MEDS: SODIUM CHLORIDE 0.9% FLUSH 10 ML FLUSH IV FLUSH SCH ×2 (07:49→21:57)
[2017-10-06] MEDS ORDERED: PANTOPRAZOLE SODIUM 40 MG VIAL IVP SCH (09:00)
[2017-10-06] MEDS: THIAMINE INJ 100 MG in SODIUM CHLORIDE 0.9% INJ 100 ML IV SCH (09:37)
--- NOTE | 2017-10-06 12:02 | HHI.NSPN ---
(Clara Jack) Note Status Status: Progress Note (Clara Jack) Status: Progress Note (Yonatan Ramos MD) Interval History Interval History Ms Becerra is a 87 year old male who was brought to [facility] with recurrent falls. CT of the brain showed a large left subdural hematoma with increasing maximun thickness of 20mm, mass effect and midline shift. A surgical decompression was indicated as recommended by the Trauma Committee of [employer]. She underwent a Left frontal temporal parietal craniotomy, evacuation of subdural hematoma on Oct 05, 2017. 10/06: stable post-op, alert, moves all four ext, c/o of back pain, poss acute L3 compression fracture per CT (Clara Jack) Labs, Micro, & Vital Signs Results Date Time Temp Pulse Resp B/P (MAP) Pulse Ox O2 Delivery O2 Flow Rate FiO2 10/06/17 10:00 64 17 131/62 (85) 97 10/06/17 09:00 62 22 112/58 (76) 96 10/06/17 08:00 97.6 64 17 118/59 (78) 96 10/06/17 07:00 67 10/06/17 07:00 96 Nasal Cannula 7.00 10/06/17 07:00 68 14 122/60 (80) 95 10/06/17 06:00 98.6 68 11 124/57 (79) 95 10/06/17 05:00 98.6 65 13 131/63 (85) 93 10/06/17 04:55 97 Nasal Cannula 6.00 10/06/17 04:00 98.7 71 13 125/56 (79) 96 10/06/17 03:00 98.6 71 13 112/55 (74) 97 10/06/17 02:00 98.6 73 19 130/61 (84) 95 10/06/17 01:00 98.5 72 16 117/57 (77) 94 10/06/17 00:00 98.5 74 16 122/58 (79) 94 1/6/18 23:00 28 10/05/17 23:00 98.6 76 28 128/58 (81) 94 10/05/17 22:00 98.6 74 13 111/56 (74) 94 10/05/17 21:00 98.6 76 13 117/56 (76) 95 10/05/17 20:00 98.4 76 13 116/56 (76) 95 10/05/17 19:00 98.6 71 13 117/57 (77) 92 10/05/17 19:00 92 Simple Mask 6.00 10/05/17 18:00 67 14 108/55 (72) 94 10/05/17 17:00 65 13 124/58 (80) 93 10/05/17 16:30 98.1 68 15 138/58 (84) 91 10/05/17 16:15 67 14 119/60 (79) 94 Simple Mask 6 10/05/17 16:00 68 14 134/60 (84) 93 Nasal Cannula 4 10/05/17 15:45 68 16 132/58 (82) 96 Simple Mask 6 10/05/17 15:30 76 18 144/67 (92) 95 Simple Mask 6 10/05/17 15:26 97.8 80 18 136/85 (102) 85 Nasal Cannula 4 10/05/17 15:00 67 10/05/17 13:13 10/07/17 07:00 Intake Total 50 ml Output Total 50 ml Balance 0 ml Constitutional Vital Signs Date Time Temp Pulse Resp B/P (MAP) Pulse Ox O2 Delivery O2 Flow Rate FiO2 10/06/17 10:00 64 17 131/62 (85) 97 10/06/17 09:00 62 22 112/58 (76) 96 10/06/17 08:00 97.6 64 17 118/59 (78) 96 10/06/17 07:00 67 10/06/17 07:00 96 Nasal Cannula 7.00 10/06/17 07:00 68 14 122/60 (80) 95 10/06/17 06:00 98.6 68 11 124/57 (79) 95 10/06/17 05:00 98.6 65 13 131/63 (85) 93 10/06/17 04:55 97 Nasal Cannula 6.00 10/06/17 04:00 98.7 71 13 125/56 (79) 96 10/06/17 03:00 98.6 71 13 112/55 (74) 97 10/06/17 02:00 98.6 73 19 130/61 (84) 95 10/06/17 01:00 98.5 72 16 117/57 (77) 94 10/06/17 00:00 98.5 74 16 122/58 (79) 94 10/05/17 23:00 28 10/05/17 23:00 98.6 76 28 128/58 (81) 94 10/05/17 22:00 98.6 74 13 111/56 (74) 94 10/05/17 21:00 98.6 76 13 117/56 (76) 95 10/05/17 20:00 98.4 76 13 116/56 (76) 95 10/05/17 19:00 98.6 71 13 117/57 (77) 92 10/05/17 19:00 92 Simple Mask 6.00 10/05/17 18:00 67 14 108/55 (72) 94 10/05/17 17:00 65 13 124/58 (80) 93 10/05/17 16:30 98.1 68 15 138/58 (84) 91 10/05/17 16:15 67 14 119/60 (79) 94 Simple Mask 6 10/05/17 16:00 68 14 134/60 (84) 93 Nasal Cannula 4 10/05/17 15:45 68 16 132/58 (82) 96 Simple Mask 6 10/05/17 15:30 76 18 144/67 (92) 95 Simple Mask 6 10/05/17 15:26 97.8 80 18 136/85 (102) 85 Nasal Cannula 4 10/05/17 15:00 67 10/05/17 13:13 10/07/17 07:00 Intake Total 50 ml Output Total 50 ml Balance 0 ml (Clara Jack) Physical Exam Ms. Becerra is alert, awake and oriented to time, place and person. Speech is fluent. Surgical incision with clean, dry dressing. DAVIAN drain with moderate serosanguineous drainage. Cranial nerve examination: pupils to be equal, round and reactive to light. Extra-ocular movements are intact. Facial motor and sensory function are normal and symmetrical. Neck is soft and supple Motor: moving all four extremities well No ankle clonus. Plantars flexors b/l (Clara Jack) Medications Current Medications Current Medications Medications (Trade) Dose Ordered Sig/Hannah Route PRN Reason Start Time Stop Time Status Last Admin Dose Admin Sodium Chloride 1,000 ml @ 84 mls/hr [id number] IV 10/05/17 12:43 Sodium Chloride (NS Flush) 2 ml UNSCH PRN IV FLUSH FLUSH AFTER USING IV ACCESS 10/05/17 12:45 Sodium Chloride (NS Flush) 2 ml BID IV FLUSH 10/05/17 21:00 10/06/17 07:49 Famotidine (Pepcid Inj) 20 mg Q12HR IV PUSH 10/05/17 21:00 10/06/17 07:49 Albuterol/ Ipratropium (Duoneb Neb) 1 ampule Q2HR NEB PRN INH WHEEZING 10/05/17 12:45 Miscellaneous Information 1 [id number] XX 10/05/17 12:45 Chlorhexidine Gluconate (Chlorhexidine 2% Cloth) 3 pack Taper DAILY@04 TOP 10/06/17 04:00 10/02/18 03:59 Chlorhexidine Gluconate (Chlorhexidine 2% Cloth) 3 pack UNSCH PRN TOP HYGIENIC CARE 10/05/17 12:45 Senna/Docusate Sodium (Coleen-Colace) 1 tab BID PO 10/05/17 21:00 10/06/17 07:49 Magnesium Hydroxide (Milk Of Magnesia Liq) 30 ml Q12H PRN PO Mild constipation 10/05/17 12:45 Sennosides (Senokot) 17.2 mg Q12H PRN PO Moderate constipation 10/05/17 12:45 Bisacodyl (Dulcolax Supp) 10 mg DAILY PRN RECTAL SEVERE CONSITIPATION 10/05/17 12:45 Lactulose (Lactulose Liq) 30 ml DAILY PRN PO SEVERE CONSITIPATION 10/05/17 12:45 Levetriacetam 500 mg/Sodium Chloride 105 ml @ 420 mls/hr Q12H IV 10/05/17 15:00 10/06/17 02:06 Potassium Chloride 100 ml @ 50 mls/hr Q2H PRN IV For Potassium 2.8 - 3.2 mEq/L 10/05/17 13:00 Potassium Chloride 100 ml @ 50 mls/hr Q2H PRN IV For Potassium 2.8 - 3.2 mEq/L 10/05/17 13:00 Potassium Bicarb/ Potassium Chloride (K-Lyte Cl Eff) 50 meq UNSCH PRN PO For Potassium 3.3 - 3.5 mEq/L 10/05/17 13:00 Potassium Chloride 100 ml @ 25 mls/hr UNSCH PRN IV For Potassium 3.3 - 3.5 mEq/L 10/05/17 13:00 Potassium Chloride 100 ml @ 50 mls/hr Q2H PRN IV For Potassium 3.3 - 3.5 mEq/L 10/05/17 13:00 Magnesium Sulfate 4 gm/Sodium Chloride 100 ml @ 50 mls/hr UNSCH PRN IV For Magnesium 0.9 - 1.1 mg/dL 10/05/17 13:00 Magnesium Oxide (Mag-Ox) 800 mg UNSCH PRN PO For Magnesium 1.2 - 1.6 mg/dL 10/05/17 13:00 Magnesium Sulfate 2 gm/Sodium Chloride 100 ml @ 50 mls/hr UNSCH PRN IV For Magnesium 1.2 - 1.6 mg/dL 10/05/17 13:00 Potassium Phosphate (K-Phos) 2,000 mg Q4H PRN PO For Phosphorus < 2.5 mg/dL 10/05/17 13:00 Sodium Phosphate 30 mmol/Sodium Chloride 250 ml @ 42 mls/hr UNSCH PRN IV For Phosphorus < 2.5 mg/dL 10/05/17 13:00 Potassium Phosphate (K-Phos) 2,000 mg UNSCH PRN PO/TUBE SEE LABEL COMMENTS 10/05/17 13:00 Potassium Phosphate 30 mmol/ Sodium Chloride 260 ml @ 42 mls/hr UNSCH PRN IV SEE LABEL COMMENTS 10/05/17 13:00 Thiamine HCl 100 mg/Sodium Chloride 101 ml @ 101 mls/hr DAILY IV 10/05/17 15:00 10/09/17 08:59 10/06/17 09:37 Potassium Chloride/Sodium Chloride 1,000 ml @ 100 mls/hr Q10H IV 10/05/17 16:00 10/06/17 02:06 Bisacodyl (Dulcolax Supp) 10 mg DAILY PRN RECTAL CONSTIPATION 10/05/17 15:15 Docusate Sodium (Colace) 100 mg BID PO 10/05/17 21:00 10/06/17 07:48 Pantoprazole Sodium (Protonix) 40 mg DAILY PO 10/06/17 09:00 10/06/17 07:49 Pantoprazole Sodium (Protonix Inj) 40 mg DAILY IVP 10/06/17 09:00 Ondansetron HCl (Zofran Inj) 4 mg Q6H PRN IV PUSH NAUSEA OR VOMITING 10/05/17 15:15 Calcium Gluconate (Calcium Gluconate Inj) 1 gm UNSCH PRN IV SEE LABEL COMMENTS 10/05/17 15:15 Potassium Chloride 100 ml @ 50 mls/hr UNSCH PRN IV POTASSIUM LESS THAN 4 10/05/17 15:15 Magnesium Sulfate 4 gm/Sodium Chloride 108 ml @ 108 mls/hr UNSCH PRN IV MAGNESIUM LESS THAN 2 10/05/17 15:15 Acetaminophen/ Hydrocodone Bitart (Heartwell 10-325 Mg) 1 tab Q4H PRN PO PAIN SCALE 1 TO 5 10/05/17 15:15 10/06/17 07:49 Acetaminophen/ Hydrocodone Bitart (Heartwell 10-325 Mg) 2 tab Q4H PRN PO PAIN SCALE 6 TO 10 10/05/17 15:15 Acetaminophen (Tylenol) 650 mg Q4H PRN PO TEMPERATURE > 101.5 F 10/05/17 15:15 Miscellaneous Information ALL NURSING DEPARTME... UNSCH PRN .XX SEE LABEL COMMENTS 10/05/17 15:27 10/06/17 15:26 Morphine Sulfate (Morphine Inj) 2 mg Q2H PRN IV PUSH PAIN SCALE 1 TO 6 10/06/17 00:15 Morphine Sulfate (Morphine Inj) 4 mg Q2H PRN IV PUSH PAIN SCALE 7 TO 10 10/06/17 00:15 10/06/17 01:03 (Clara Jack) Medical Decision Making MDM Remarks 87 y/o female s/p left frontal temporal parietal craniotomy, evacuation of subdural hematoma on 10/05/17 possible acute L3 compression fracture (Clara Jack) Plan Plan Remarks MRI L spine to assess acute fracture cont DAVIAN draining cont neuro checks in ISC clear for PT, OOB with assistance nonchemical dvt prophylaxis in view of acute ICH protonix for stress ulcer proph (Clara Jack) Attending Statement The exam, history, and the medical decision-making described in the above note were completed with the assistance of the mid-level provider. I reviewed and agree with the findings presented. I attest that I had a prai-py-pago encounter with the patient on the same day, and personally performed and documented my assessment and findings in the medical record. (Yonatan Ramos MD) Clara Jack Oct 06, 2017 12:02 Yonatan Ramos MD Oct 06, 2017 13:02
--- NOTE | 2017-10-06 13:36 | EKG ---
Date Performed: 10/05/2017 Time Performed: 11:36:54 PTAGE: 87 years EKG: Sinus rhythm NORMAL ECG PREVIOUS TRACING : 07/24/2017 16.20 Since previous tracing, no significant change. DOCTOR: Mehrdad Cunningham Interpretating Date/Time 10/06/2017 13:34:40
--- NOTE | 2017-10-06 14:49 | RADRPT ---
EXAM DATE/TIME: 10/06/2017 13:42 [place] COMPARISON: No previous studies available for comparison. INDICATIONS : Pain. MEDICAL HISTORY : Hypertension. Subdural hematoma. SURGICAL HISTORY : Craniotomy. Bilateral knee replacements. ENCOUNTER: Initial ACUITY: 2 day PAIN SCORE: 4/10 LOCATION: [facility] TECHNIQUE: Multiplanar multisequence MRI of the lumbar spine was performed without contrast. FINDINGS: MRI of the lumbar spine was performed in sagittal and axial planes. There is anterolisthesis likely r elated to facet arthritis at L3-L4 2-3 mm. No focal areas of marrow replacement are identified. The c onus terminates normally. Axial images were performed from T12-L1 through L5-S1. T12-L1: No significant abnormalities identified. L1-L2: There is mild annular bulge of the disc. There is mild facet arthritis and ligamentum flavum hypertro phy bilaterally. There is mild spinal canal stenosis. L2-L3: There is mild annular bulge of the disc. There is moderate facet arthritis bilaterally with ligamentu m flavum hypertrophy. There is mild to moderate spinal canal stenosis. L3-L4: There is mild annular bulge of the disc. There is severe facet arthritis bilaterally with ligamentum flavum hypertrophy. There is severe spinal canal stenosis. There is moderate neural foraminal narrowi ng on the right. L4-L5: There is broad-based annular bulge of disc asymmetric to the left. There is mild facet arthritis on t he left. There is mild spinal canal stenosis. L5-S1: No significant abnormalities identified. CONCLUSION: 1. Multilevel degenerative disc disease most severe at L3-L4 with severe spinal canal stenosis second raiza to disc bulge and posterior element hypertrophy Wili Richardson MD on October 06, 2017 at 14:44 Board Certified Radiologist. This report was verified electronically.
--- NOTE | 2017-10-06 20:35 | HHI.CCPN ---
Subjective Remarks/Hospital Course Patient is a 87-year-old female that presents to the ED after sustaining a fall 2-3 days ago apparently landed on her back. Denies hitting her head. Her friend reported patient had been intermittently confused after the fall also complaining of back pain and dizziness. Patient has a history of subdural hematoma which was evacuated by Dr. Ramos June 2017. CT head showed large acute epidural hematoma along the left frontoparietal region measuring 21 mm with 8 mm of subfalcine herniation to the right. Acute subdural components also noted within left posterior parietal region. CT of the lumbar spine showed L3 compression fracture of indeterminate age and severe lumbar spinal stenosis\ I evaluated the patient in the ED. Patient is alert awake pleasant, oriented to person and place. Cannot recall the exact date of previous subdural hematoma evacuation. I discussed with Dr. Ramos. Patient has a large epidural hematoma with mass effect. Emergency evacuation of the epidural hematoma is indicated and Dr. Ramos is agreeable. I have ordered stat mannitol 25 g IV 1 also will start on Keppra 500 mg IV every 12 for seizure prophylaxis Subjective 10/06: Afebrile. Resting in bed in no acute distress on 5 L nasal cannula.. Tolerating diet. Complaining of back pain. Objective Vital Signs Date Time Temp Pulse Resp B/P (MAP) Pulse Ox O2 Delivery O2 Flow Rate FiO2 10/06/17 16:00 97.6 64 18 117/60 (79) 92 10/06/17 11:50 Nasal Cannula 5.00 Intake and Output 10/06/17 10/06/17 10/07/17 08:00 16:00 00:00 Intake Total 1028.6 ml 702 ml 550 ml Output Total 500 ml 295 ml 340 ml Balance 528.6 ml 407 ml 210 ml Result Diagram: 10/06/17 0408 10/06/17 0408 Imaging Last Impressions Lumbar Spine MRI 10/06/17 0000 Signed Impressions: Service Date/Time: Friday, October 06, 2017 13:42 - CONCLUSION: 1. Multilevel degenerative disc disease most severe at L3-L4 with severe spinal canal stenosis secondary to disc bulge and posterior element hypertrophy Wili Richardson MD Head CT 10/05/17 1126 Signed Impressions: Service Date/Time: Thursday, October 05, 2017 11:45 - CONCLUSION: Large acute epidural hematoma along the left frontoparietal region measuring 21 mm in width and resulting in 8 mm of subfalcine herniation to the right. Acute subdural components are also noted within left posterior parietal region. Mg Magallon MD Chest X-Ray 10/05/17 1126 Signed Impressions: Service Date/Time: Thursday, October 05, 2017 12:11 - CONCLUSION: 1. Mild hepatomegaly. 2. No acute focal pulmonary infiltrate or pulmonary vascular congestion. Mg Magallon MD Lumbar Spine CT 10/05/17 0000 Signed Impressions: Service Date/Time: Thursday, October 05, 2017 11:50 - CONCLUSION: 1. Moderate compression deformity involving L3 of indeterminate age. 2. Grade I anterolisthesis of L4 relation to L5. 3. Severe spinal stenosis and moderate bilateral foraminal narrowing at L4-5. 4. Moderate spondylosis and bilateral foraminal narrowing at L2-3. 5. Moderate spinal stenosis and mild bilateral foraminal narrowing at L3-4. 6. Mild spinal stenosis and moderate to severe bilateral foraminal narrowing at L5-S1. 7. Facet joint hypertrophy bilaterally throughout the lumbar spine. 8. Uncomplicated sigmoid diverticulosis. Mg Magallon MD Hip and Pelvis X-Ray 10/05/17 0000 Signed Impressions: Service Date/Time: Thursday, October 05, 2017 12:03 - CONCLUSION: 1. No acute fracture or dislocation. 2. Degenerative changes involving the lower lumbar spine, bilateral hips and symphysis pubis. Mg Magallon MD Carotid Artery Ultrasound 10/05/17 0000 Signed Impressions: Service Date/Time: Thursday, October 05, 2017 17:55 - CONCLUSION: Moderate calcified plaque without evidence of hemodynamically significant stenosis. Antegrade flow both vertebral arteries. Wilber Stovall MD Objective Remarks GEN: 81-year-old pleasant female resting in bed on nasal cannula SKIN: Warm and dry. HEAD: Status post left frontotemporoparietal craniotomy. [place] are clean dry and intact. Left DAVIAN with SS output. 210 cc past 24 hours EYES: Pupils round, appears equal ENT: No nasal bleeding or discharge. Tongue is midline. No uvula deviation. NECK: Trachea midline. No JVD. CARDIOVASCULAR: Regular rate and rhythm. S1, S2. No S4. No murmurs RESPIRATORY: No accessory muscle use. Clear to auscultation. Breath sounds equal bilaterally. GASTROINTESTINAL: Abdomen soft, non-tender, nondistended. MUSCULOSKELETAL: Extremities without clubbing, cyanosis, or edema. + Pulses bilaterally. NEUROLOGICAL: Awake and alert and oriented 3 but does not recall date of previous surgery. No obvious cranial nerve deficits. Motor grossly within normal limits. Five out of 5 muscle strength in the arms and legs. Normal speech. A/P Assessment and Plan NEURO/PSYCH: Acute traumatic left-sided epidural hematoma 21 mm along with left subdural hematoma 8mm left to right midline shift Acute encephalopathy Previous history of right-sided subdural hematoma 07/16 Chronic benzodiazepine use L3/4 spinal stenosis secondary to disc bulging History of cataracts Status post Dr. Rmaos status post left frontal temporoparietal craniotomy with evacuation of epidural hematoma 10/05 Currently on hydrocodone/acetaminophen 10/325 one to 2 tablets Every 4 hours when necessary pain - Morphine sulfate 2- 4 mg IV every 2 hours when necessary pain -Levetiracetam 500 mg IV twice a day 7 days seizure prophylaxis - Fall evaluation, PT/OT post op Holding alprazolam 0.25 mg by mouth twice a day as needed for anxiety On thiamine 100 mg IV daily 3 days MRI L-spine revealed severe spinal stenosis with disc bulging at L3/4 RESP: - Nasal cannula oxygen currently at 5 L to maintain saturations greater or equal to 90% - Aggressive pulmonary toilet, with Acapella every 6 hours - Albuterol/ipratropium aerosols every 6 hours with albuterol aerosols every 2 hours. Dyspnea CV: Hypertension History dyslipidemia - Normal saline with KCl IV fluids at 100 cc an hour - Check 2 D Echo, results pending Carotid Doppler revealed moderate stenosis without flow-limiting right - Cycle cardiac enzymes - Target SBP <150 Amlodipine 10 mg by mouth daily home medication. Resume at 2.5 mg daily currentl GI: Gastroesophageal reflux disease Hypoalbuminemia Regular basic diet Pantoprazole 40 mg daily for GI prophylaxis. On omeprazole 20 mg daily at home Docusate sodium 100 mg by mouth twice a day for bowel regimen : - Monitor renal function closely. Fernandez catheter. ID: - Perioperative antibiotics per Dr. Ramos completed cefazolin 1 g IV 3 dosages Pending urine HEME: Normocytic anemia - Monitor CBC, CMP. Follow trends ENDO: Hypokalemia - Electrolyte replacement per protocol PROPH: - Bilateral lower extremity SCDs/CARMELO. IV pantoprazole for GI prophylaxis - Chemical DVT prophylaxis is contraindicated LINES: - Utilize peripheral IVs, central line if needed Level II follow-up Kenneth Melgar MD Oct 06, 2017 20:35
[2017-10-06] MEDS ORDERED: RESP: ALBUTEROL 2.5 MG/3 ML NEB (PRN) NEB (21:00)
[2017-10-07] VITALS (11 sets, daily range): BP systolic 111–164; BP diastolic 51–89; PULSE 62–74; RESP 13–16; TEMP 97.7–98.8; O2SAT 93–98
[2017-10-07] MEDS: ACETAMINOPHEN/HYDROcodone 325 MG/10 MG TAB PO PRN ×2 (01:32→16:54)
[2017-10-07] MEDS: levETIRAcetam INJ 500 MG in SODIUM CHLORIDE 0.9% INJ 100 ML IV SCH ×2 (03:38→15:00)
[2017-10-07] MEDS: CHLORHEXIDINE GLUCONATE 2 % 1 PACK (2 CLOTHS) TOP SCH (04:00)
[2017-10-07] MEDS: RESP: ALBUTEROL 2.5 MG/IPRATROPIUM 0.5 MG NEB (SCH) NEB ×4 (04:45→20:56)
[2017-10-07 05:35] LABS: AUTOMATED NEUTROPHIL # 3.8 TH/MM3 (1.8-7.7); BASOPHIL % 0.3 % (0.0-2.0); EOSINOPHIL # 0.3 TH/MM3 (0-0.4); EOSINOPHIL % 4.7 % (0.0-4.0); HEMATOCRIT 31.6 % (35.0-46.0); HEMOGLOBIN 10.3 GM/DL (11.6-15.3); LYMPH % 29.2 % (9.0-44.0); MEAN CELL VOLUME 81.8 FL (80.0-100.0); MEAN CORPUSCULAR HEMOGLOBIN 26.7 PG (27.0-34.0); MEAN CORPUSCULAR HGB CONC 32.7 % (32.0-36.0); MEAN PLATELET VOLUME 7.9 FL (7.0-11.0); MONO % 11.8 % (0.0-8.0); MONOCYTE # 0.8 TH/MM3 (0-0.9); PLATELET COUNT 221 TH/MM3 (150-450); RED BLOOD COUNT 3.86 MIL/MM3 (4.00-5.30); RED CELL DISTRIBUTION WIDTH 13.8 % (11.6-17.2)
[2017-10-07 05:59] LABS: ALBUMIN 2.7 GM/DL (3.4-5.0); AST (GOT) 10 U/L (15-37); BICARBONATE 28.3 MEQ/L (21.0-32.0); BLOOD UREA NITROGEN 17 MG/DL (7-18); CALCIUM 8.2 MG/DL (8.5-10.1); CHLORIDE 108 MEQ/L (98-107); CREATININE 0.63 MG/DL (0.50-1.00); GLOMERULAR FILTRATION RATE 89 ML/MIN (>89); GLUCOSE,RANDOM 88 MG/DL (74-106); SODIUM (NA) 141 MEQ/L (136-145)
[2017-10-07 06:00] LABS: ALT (GPT) 11 U/L (10-53); PHOSPHORUS 2.6 MG/DL (2.5-4.9)
[2017-10-07 06:02] LABS: ALKALINE PHOSPHATASE 66 U/L (45-117); TOTAL BILIRUBIN ADULT 0.3 MG/DL (0.2-1.0); TOTAL PROTEIN 5.8 GM/DL (6.4-8.2)
[2017-10-07] MEDS: SODIUM CHLORIDE 0.9% FLUSH 10 ML FLUSH IV FLUSH SCH ×2 (09:00→21:00)
[2017-10-07] MEDS: amLODIPine BESYLATE 5 MG TAB PO SCH (09:44)
[2017-10-07] MEDS: DOCUSATE SODIUM 100 MG CAP PO SCH ×2 (09:44→21:17)
[2017-10-07] MEDS: PANTOPRAZOLE SOD 40 MG DELAYED RELEASE TAB PO SCH (09:44)
[2017-10-07] MEDS: THIAMINE INJ 100 MG in SODIUM CHLORIDE 0.9% INJ 100 ML IV SCH (09:45)
--- NOTE | 2017-10-07 12:42 | ECHRPT ---
Indication: CONCLUSIONS Normal left ventricular size. The left ventricular systolic function is normal with an estimated ejection fraction in the range of 60-65%. [id number] mitral valve regurgitation. Aortic valve sclerosis is present. No aortic valve regurgitation. No aortic valve stenosis. There is mild tricuspid valve regurgitation. The estimated pulmonary arterial pressure is 26.8 mmHg. BP: / HR: Rhythm: MEASUREMENTS (Male / Female) Normal Values Technical Quality:Fair 2D ECHO LV Diastolic Diameter PLAX 4.6 cm 4.2 - 5.9 / 3.9 - 5.3 cm LV Systolic Diameter PLAX 3.5 cm IVS Diastolic Thickness 1.1 cm 0.6 - 1.0 / 0.6 - 0.9 cm LVPW Diastolic Thickness 1.0 cm 0.6 - 1.0 / 0.6 - 0.9 cm LV Relative Wall Thickness 0.5 RV Internal Dim ED PLAX 3.1 cm M-MODE Aortic Root Diameter MM 2.5 cm LA Systolic Diameter MM 4.9 cm LA Ao Ratio MM 2.0 AV Cusp Separation MM 1.7 cm DOPPLER Mitral E Point Velocity 54.3 cm/s Mitral A Point Velocity 83.9 cm/s Mitral E to A Ratio 0.6 LV E' Lateral Velocity 7.7 cm/s Mitral E to LV E' Lateral Ratio 7.1 LV E' Septal Velocity 10.1 cm/s Mitral E to LV E' Septal Ratio 5.4 TR Peak Velocity 205.0 cm/s TR Peak Gradient 16.8 mmHg Right Atrial Pressure 10.0 mmHg Pulmonary Artery Systolic Pressu 26.8 mmHg Right Ventricular Systolic Press 26.8 mmHg FINDINGS LEFT VENTRICLE Normal left ventricular size. The left ventricular systolic function is normal with an estimated ejection fraction in the range of 60-65%. RIGHT VENTRICLE Normal right ventricular size and systolic function. LEFT ATRIUM The left atrial size is normal. RIGHT ATRIUM The right atrial size is normal. ATRIAL SEPTUM Normal atrial septal thickness without atrial level shunting by limited color doppler interrogation. AORTA The aortic root and proximal ascending aorta are normal in size on limited imaging. MITRAL VALVE Structurally normal mitral valve. [id number] mitral valve regurgitation. AORTIC VALVE Trileaflet aortic valve. Aortic valve sclerosis is present. No aortic valve regurgitation. No aortic valve stenosis. TRICUSPID VALVE Structurally normal tricuspid valve. There is mild tricuspid valve regurgitation. The estimated pulmonary arterial pressure is 26.8 mmHg. PULMONARY VALVE No pulmonary valve regurgitation or stenosis. VESSELS The inferior vena cava is normal in size. PERICARDIUM No pericardial effusion. Antonio Camp MD, FACC (Electronically Signed) Final Date:07 October 2017 12:41
--- NOTE | 2017-10-07 12:48 | HHI.NSPN ---
(Clara Jack) Note Status Status: Progress Note (Clara Jack) Interval History Interval History Ms Becerra is a 87 year old male who was brought to [facility] with recurrent falls. CT of the brain showed a large left subdural hematoma with increasing maximun thickness of 20mm, mass effect and midline shift. A surgical decompression was indicated as recommended by the Trauma Committee of [employer]. She underwent a Left frontal temporal parietal craniotomy, evacuation of subdural hematoma on Oct 05, 2017. 10/06: stable post-op, alert, moves all four ext, c/o of back pain, poss acute L3 compression fracture per CT 10/07: mild headaches today, and persistent lumbar pain. MRI L spine shows chronic compression fracture with degenerative spondylosis. (Clara Jack) Labs, Micro, & Vital Signs Results Date Time Temp Pulse Resp B/P (MAP) Pulse Ox O2 Delivery O2 Flow Rate FiO2 10/07/17 08:54 98 Nasal Cannula 4.00 10/07/17 07:00 95 Nasal Cannula 5.00 10/07/17 07:00 71 10/07/17 04:00 98.8 62 13 111/51 (71) 93 10/07/17 00:00 98.7 64 16 118/58 (78) 94 10/06/17 23:00 97.6 66 30 126/59 (81) 100 10/06/17 23:00 70 10/06/17 22:23 94 Nasal Cannula 4.00 10/06/17 20:00 98.7 66 30 126/59 (81) 100 10/06/17 19:00 95 Nasal Cannula 5.00 10/06/17 16:00 97.6 64 18 117/60 (79) 92 10/06/17 15:00 67 Constitutional Vital Signs Date Time Temp Pulse Resp B/P (MAP) Pulse Ox O2 Delivery O2 Flow Rate FiO2 10/07/17 08:54 98 Nasal Cannula 4.00 10/07/17 07:00 95 Nasal Cannula 5.00 10/07/17 07:00 71 10/07/17 04:00 98.8 62 13 111/51 (71) 93 10/07/17 00:00 98.7 64 16 118/58 (78) 94 10/06/17 23:00 97.6 66 30 126/59 (81) 100 10/06/17 23:00 70 10/06/17 22:23 94 Nasal Cannula 4.00 10/06/17 20:00 98.7 66 30 126/59 (81) 100 10/06/17 19:00 95 Nasal Cannula 5.00 10/06/17 16:00 97.6 64 18 117/60 (79) 92 10/06/17 15:00 67 (Clara Jack) Review of Systems Constitutional: DENIES: Fever, Chills Cardiovascular: DENIES: Chest pain Musculoskeletal: COMPLAINS OF: Back pain Neurologic: COMPLAINS OF: Headache (Clara Jack) Physical Exam Ms. Becerra is alert, awake and oriented to time, place and person. Speech is fluent. Eating her breakfast without difficulties. Surgical incision with clean, dry dressing. DAVIAN drain with moderate serosanguineous drainage. Cranial nerve examination: pupils to be equal, round and reactive to light. Extra-ocular movements are intact. Facial motor and sensory function are normal and symmetrical. Neck is soft and supple Motor: moving all four extremities well No ankle clonus. Plantars flexors b/l (Clara Jack) Medications Current Medications Current Medications Medications (Trade) Dose Ordered Sig/Hannah Route PRN Reason Start Time Stop Time Status Last Admin Dose Admin Sodium Chloride (NS Flush) 2 ml UNSCH PRN IV FLUSH FLUSH AFTER USING IV ACCESS 10/05/17 12:45 Sodium Chloride (NS Flush) 2 ml BID IV FLUSH 10/05/17 21:00 10/07/17 09:00 Miscellaneous Information 1 [id number] XX 10/05/17 12:45 Chlorhexidine Gluconate (Chlorhexidine 2% Cloth) 3 pack Taper DAILY@04 TOP 10/06/17 04:00 10/02/18 03:59 Chlorhexidine Gluconate (Chlorhexidine 2% Cloth) 3 pack UNSCH PRN TOP HYGIENIC CARE 10/05/17 12:45 Magnesium Hydroxide (Milk Of Magnesia Liq) 30 ml Q12H PRN PO Mild constipation 10/05/17 12:45 Sennosides (Senokot) 17.2 mg Q12H PRN PO Moderate constipation 10/05/17 12:45 Bisacodyl (Dulcolax Supp) 10 mg DAILY PRN RECTAL SEVERE CONSITIPATION 10/05/17 12:45 Lactulose (Lactulose Liq) 30 ml DAILY PRN PO SEVERE CONSITIPATION 10/05/17 12:45 Levetriacetam 500 mg/Sodium Chloride 105 ml @ 420 mls/hr Q12H IV 10/05/17 15:00 10/07/17 03:38 Potassium Chloride 100 ml @ 50 mls/hr Q2H PRN IV For Potassium 2.8 - 3.2 mEq/L 10/05/17 13:00 Potassium Chloride 100 ml @ 50 mls/hr Q2H PRN IV For Potassium 2.8 - 3.2 mEq/L 10/05/17 13:00 Potassium Bicarb/ Potassium Chloride (K-Lyte Cl Eff) 50 meq UNSCH PRN PO For Potassium 3.3 - 3.5 mEq/L 10/05/17 13:00 Potassium Chloride 100 ml @ 25 mls/hr UNSCH PRN IV For Potassium 3.3 - 3.5 mEq/L 10/05/17 13:00 Potassium Chloride 100 ml @ 50 mls/hr Q2H PRN IV For Potassium 3.3 - 3.5 mEq/L 10/05/17 13:00 Magnesium Sulfate 4 gm/Sodium Chloride 100 ml @ 50 mls/hr UNSCH PRN IV For Magnesium 0.9 - 1.1 mg/dL 10/05/17 13:00 Magnesium Oxide (Mag-Ox) 800 mg UNSCH PRN PO For Magnesium 1.2 - 1.6 mg/dL 10/05/17 13:00 Magnesium Sulfate 2 gm/Sodium Chloride 100 ml @ 50 mls/hr UNSCH PRN IV For Magnesium 1.2 - 1.6 mg/dL 10/05/17 13:00 Potassium Phosphate (K-Phos) 2,000 mg Q4H PRN PO For Phosphorus < 2.5 mg/dL 10/05/17 13:00 Sodium Phosphate 30 mmol/Sodium Chloride 250 ml @ 42 mls/hr UNSCH PRN IV For Phosphorus < 2.5 mg/dL 10/05/17 13:00 Potassium Phosphate (K-Phos) 2,000 mg UNSCH PRN PO/TUBE SEE LABEL COMMENTS 10/05/17 13:00 Potassium Phosphate 30 mmol/ Sodium Chloride 260 ml @ 42 mls/hr UNSCH PRN IV SEE LABEL COMMENTS 10/05/17 13:00 Thiamine HCl 100 mg/Sodium Chloride 101 ml @ 101 mls/hr DAILY IV 10/05/17 15:00 10/09/17 08:59 10/07/17 09:45 Potassium Chloride/Sodium Chloride 1,000 ml @ 100 mls/hr Q10H IV 10/05/17 16:00 10/06/17 12:20 Bisacodyl (Dulcolax Supp) 10 mg DAILY PRN RECTAL CONSTIPATION 10/05/17 15:15 Docusate Sodium (Colace) 100 mg BID PO 10/05/17 21:00 10/07/17 09:44 Pantoprazole Sodium (Protonix) 40 mg DAILY PO 10/06/17 09:00 10/07/17 09:44 Ondansetron HCl (Zofran Inj) 4 mg Q6H PRN IV PUSH NAUSEA OR VOMITING 10/05/17 15:15 Calcium Gluconate (Calcium Gluconate Inj) 1 gm UNSCH PRN IV SEE LABEL COMMENTS 10/05/17 15:15 Potassium Chloride 100 ml @ 50 mls/hr UNSCH PRN IV POTASSIUM LESS THAN 4 10/05/17 15:15 Magnesium Sulfate 4 gm/Sodium Chloride 108 ml @ 108 mls/hr UNSCH PRN IV MAGNESIUM LESS THAN 2 10/05/17 15:15 Acetaminophen/ Hydrocodone Bitart (Taft 10-325 Mg) 1 tab Q4H PRN PO PAIN SCALE 1 TO 5 10/05/17 15:15 10/07/17 01:32 Acetaminophen/ Hydrocodone Bitart (Taft 10-325 Mg) 2 tab Q4H PRN PO PAIN SCALE 6 TO 10 10/05/17 15:15 Acetaminophen (Tylenol) 650 mg Q4H PRN PO TEMPERATURE > 101.5 F 10/05/17 15:15 Morphine Sulfate (Morphine Inj) 2 mg Q2H PRN IV PUSH PAIN SCALE 1 TO 6 10/06/17 00:15 Morphine Sulfate (Morphine Inj) 4 mg Q2H PRN IV PUSH PAIN SCALE 7 TO 10 10/06/17 00:15 10/06/17 01:03 Albuterol/ Ipratropium (Duoneb Neb) 1 ampule Q6HR NEB NEB 10/06/17 22:00 10/07/17 08:51 Albuterol Sulfate (Albuterol Neb) 2.5 mg Q2HR NEB PRN NEB DYSPNEA 10/06/17 21:00 10/06/17 22:22 Amlodipine Besylate (Norvasc) 2.5 mg DAILY PO 10/07/17 09:00 10/07/17 09:44 (Clara Jack) Medical Decision Making MDM Remarks 87 y/o female s/p left frontal temporal parietal craniotomy, evacuation of subdural hematoma on 10/05/17 possible acute L3 compression fracture, chronic fracture on MRI lumbar spine - with chronic degenerative spondylosis (Clara Jack) Plan Plan Remarks MRI L spine reviewed, no acute fractures, cont DAVIAN draining, f/u CT Head today cont neuro checks clear for PT, OOB with assistance nonchemical dvt prophylaxis in view of acute ICH protonix for stress ulcer proph (Clara Jack) Attending Statement The exam, history, and the medical decision-making described in the above note were completed with the assistance of the mid-level provider. I reviewed and agree with the findings presented. I attest that I had a [id number] encounter with the patient on the same day, and personally performed and documented my assessment and findings in the medical record. (Yonatan Ramos MD) Clara Jack Oct 07, 2017 12:48 Yonatan Ramos MD Oct 08, 2017 13:56
--- NOTE | 2017-10-07 14:07 | HHI.CCPN ---
Subjective Remarks/Hospital Course Patient is a 87-year-old female that presents to the ED after sustaining a fall 2-3 days ago apparently landed on her back. Denies hitting her head. Her friend reported patient had been intermittently confused after the fall also complaining of back pain and dizziness. Patient has a history of subdural hematoma which was evacuated by Dr. Ramos June 2017. CT head showed large acute epidural hematoma along the left frontoparietal region measuring 21 mm with 8 mm of subfalcine herniation to the right. Acute subdural components also noted within left posterior parietal region. CT of the lumbar spine showed L3 compression fracture of indeterminate age and severe lumbar spinal stenosis\ I evaluated the patient in the ED. Patient is alert awake pleasant, oriented to person and place. Cannot recall the exact date of previous subdural hematoma evacuation. I discussed with Dr. Ramos. Patient has a large epidural hematoma with mass effect. Emergency evacuation of the epidural hematoma is indicated and Dr. Ramos is agreeable. I have ordered stat mannitol 25 g IV 1 also will start on Keppra 500 mg IV every 12 for seizure prophylaxis 10/06: Afebrile. Resting in bed in no acute distress on 5 L nasal cannula.. Tolerating diet. Complaining of back pain. Subjective 10/07: Afebrile. Currently in 4 L nasal cannula. DAVIAN -260s SS. No bowel movement. Tolerating diet. Objective Vital Signs Date Time Temp Pulse Resp B/P (MAP) Pulse Ox O2 Delivery O2 Flow Rate FiO2 10/07/17 08:54 98 Nasal Cannula 4.00 10/07/17 08:00 98.6 71 112/52 (72) 10/07/17 04:00 13 Intake and Output 10/07/17 10/07/17 10/08/17 08:00 16:00 00:00 Intake Total 120 ml Output Total 750 ml 300 ml Balance -630 ml -300 ml Result Diagram: 10/07/17 0456 10/07/17 0456 Imaging Last Impressions Lumbar Spine MRI 10/06/17 0000 Signed Impressions: Service Date/Time: Friday, October 06, 2017 13:42 - CONCLUSION: 1. Multilevel degenerative disc disease most severe at L3-L4 with severe spinal canal stenosis secondary to disc bulge and posterior element hypertrophy Wili Richardson MD Head CT 10/05/17 1126 Signed Impressions: Service Date/Time: Thursday, October 05, 2017 11:45 - CONCLUSION: Large acute epidural hematoma along the left frontoparietal region measuring 21 mm in width and resulting in 8 mm of subfalcine herniation to the right. Acute subdural components are also noted within left posterior parietal region. Mg Magallon MD Chest X-Ray 10/05/17 1126 Signed Impressions: Service Date/Time: Thursday, October 05, 2017 12:11 - CONCLUSION: 1. Mild hepatomegaly. 2. No acute focal pulmonary infiltrate or pulmonary vascular congestion. Mg Magallon MD Lumbar Spine CT 10/05/17 0000 Signed Impressions: Service Date/Time: Thursday, October 05, 2017 11:50 - CONCLUSION: 1. Moderate compression deformity involving L3 of indeterminate age. 2. Grade I anterolisthesis of L4 relation to L5. 3. Severe spinal stenosis and moderate bilateral foraminal narrowing at L4-5. 4. Moderate spondylosis and bilateral foraminal narrowing at L2-3. 5. Moderate spinal stenosis and mild bilateral foraminal narrowing at L3-4. 6. Mild spinal stenosis and moderate to severe bilateral foraminal narrowing at L5-S1. 7. Facet joint hypertrophy bilaterally throughout the lumbar spine. 8. Uncomplicated sigmoid diverticulosis. Mg Magallon MD Hip and Pelvis X-Ray 10/05/17 0000 Signed Impressions: Service Date/Time: Thursday, October 05, 2017 12:03 - CONCLUSION: 1. No acute fracture or dislocation. 2. Degenerative changes involving the lower lumbar spine, bilateral hips and symphysis pubis. Mg Magallon MD Carotid Artery Ultrasound 10/05/17 0000 Signed Impressions: Service Date/Time: Thursday, October 05, 2017 17:55 - CONCLUSION: Moderate calcified plaque without evidence of hemodynamically significant stenosis. Antegrade flow both vertebral arteries. Wilber Stovall MD Objective Remarks GEN: 81-year-old pleasant female resting in bed on nasal cannula SKIN: Warm and dry. HEAD: Status post left frontotemporoparietal craniotomy. [place] are clean dry and intact. Left DAVIAN with SS output. 260 cc past 24 hours EYES: Pupils round, appears equal ENT: No nasal bleeding or discharge. Tongue is midline. No uvula deviation. NECK: Trachea midline. No JVD. CARDIOVASCULAR: Regular rate and rhythm. S1, S2. No S4. No murmurs RESPIRATORY: No accessory muscle use. Clear to auscultation. Breath sounds equal bilaterally. GASTROINTESTINAL: Abdomen soft, non-tender, nondistended. MUSCULOSKELETAL: Extremities without clubbing, cyanosis, or edema. + Pulses bilaterally. NEUROLOGICAL: Awake and alert and oriented 3 but does not recall date of previous surgery. No obvious cranial nerve deficits. Motor grossly within normal limits. Five out of 5 muscle strength in the arms and legs. Normal speech. A/P Assessment and Plan NEURO/PSYCH: Acute traumatic left-sided epidural hematoma 21 mm along with left subdural hematoma 8mm left to right midline shift Acute encephalopathy Previous history of right-sided subdural hematoma 07/16 Chronic benzodiazepine use L3/4 spinal stenosis secondary to disc bulging History of cataracts Status post Dr. Ramos status post left frontal temporoparietal craniotomy with evacuation of epidural hematoma 10/05 Currently on hydrocodone/acetaminophen 10/325 one to 2 tablets Every 4 hours when necessary pain - Morphine sulfate 2- 4 mg IV every 2 hours when necessary pain -Levetiracetam 500 mg IV twice a day 7 days seizure prophylaxis - Fall evaluation, PT/OT post op Holding alprazolam 0.25 mg by mouth twice a day as needed for anxiety On thiamine 100 mg IV daily 3 days MRI L-spine revealed severe spinal stenosis with disc bulging at L3/4 RESP: - Nasal cannula oxygen currently at 4 L to maintain saturations greater or equal to 90% - Aggressive pulmonary toilet, with Acapella every 6 hours - Albuterol/ipratropium aerosols every 6 hours with albuterol aerosols every 2 hours. Dyspnea CV: Hypertension History dyslipidemia - Normal saline with KCl IV fluids at 100 cc an hour discontinued 10/07 - Check 2 D Echo, The left ventricular systolic function is normal with an estimated ejection fraction in the range of 60-65%. [id number] mitral valve regurgitation. Aortic valve sclerosis is present. No aortic valve regurgitation. No aortic valve stenosis. There is mild tricuspid valve regurgitation. The estimated pulmonary arterial pressure is 26.8 mmHg. Carotid Doppler revealed moderate stenosis without flow-limiting right - Cycle cardiac enzymes - Target SBP <150 Amlodipine 10 mg by mouth daily home medication. Resume at 2.5 mg daily GI: Gastroesophageal reflux disease Hypoalbuminemia Regular basic diet Pantoprazole 40 mg daily for GI prophylaxis. On omeprazole 20 mg daily at home Docusate sodium 100 mg by mouth twice a day for bowel regimen : - Monitor renal function closely. Fernandez catheter. ID: - Perioperative antibiotics per Dr. Ramos completed cefazolin 1 g IV 3 dosages Pending urine HEME: Normocytic anemia - Monitor CBC, CMP. Follow trends ENDO: Hypokalemia - Electrolyte replacement per protocol PROPH: - Bilateral lower extremity SCDs/CARMELO. IV pantoprazole for GI prophylaxis - Chemical DVT prophylaxis is contraindicated LINES: - Utilize peripheral IVs, central line if needed Level II follow-up Kenneth Melgar MD Oct 07, 2017 14:07
[2017-10-07] MEDS: MORPHINE SULFATE 2 MG/ML INJ IV PUSH PRN (17:47)
[2017-10-08] VITALS (14 sets, daily range): BP systolic 115–157; BP diastolic 57–72; PULSE 68–78; RESP 17–30; TEMP 98.1–98.9; O2SAT 94–99
--- NOTE | 2017-10-08 01:22 | RADRPT ---
EXAM DATE/TIME: 10/08/2017 00:42 [facility] COMPARISON: CT BRAIN W/O CONTRAST, October 05, 2017, 11:45. INDICATIONS : Follow up subdural hematoma. RADIATION DOSE: 52.13 CTDIvol (mGy) MEDICAL HISTORY : Hypertension. SURGICAL HISTORY : Craniotomy. ENCOUNTER: Subsequent ACUITY: 3 days PAIN SCALE: 0/10 LOCATION: cranial TECHNIQUE: Multiple contiguous axial images were obtained of the head. Using automated exposure control and adj ustment of the mA and/or kV according to patient size, radiation dose was kept as low as reasonably a chievable to obtain optimal diagnostic quality images. DICOM format image data is available electro nically for review and comparison. FINDINGS: There postoperative changes with placement of an extra-axial drain and significant decrease in the le ft subdural hematoma. The posterior portion of the hematoma is unchanged in size and demonstrates fin dings of acute hemorrhage. There is been significant decrease in the mass effect and midline shift. T here are no signs of herniation. Posterior fossa structures are unremarkable. CONCLUSION: 1. Post surgical with significant reduction of the previous is seen mass effect and midline shift as well as the anterior portion of the subdural hematoma. 2. The posterior subdural hematoma remains measuring 15 mm in thickness 1. Wili Rihcardson MD on October 08, 2017 at 1:17 Board Certified Radiologist. This report was verified electronically.
[2017-10-08] MEDS: levETIRAcetam INJ 500 MG in SODIUM CHLORIDE 0.9% INJ 100 ML IV SCH ×2 (02:06→15:33)
[2017-10-08] MEDS: CHLORHEXIDINE GLUCONATE 2 % 1 PACK (2 CLOTHS) TOP SCH ×2 (02:55→20:01)
[2017-10-08] MEDS: RESP: ALBUTEROL 2.5 MG/IPRATROPIUM 0.5 MG NEB (SCH) NEB ×4 (03:42→21:00)
[2017-10-08 05:09] LABS: AUTOMATED NEUTROPHIL # 4.8 TH/MM3 (1.8-7.7); BASOPHIL % 0.2 % (0.0-2.0); EOSINOPHIL # 0.4 TH/MM3 (0-0.4); EOSINOPHIL % 4.3 % (0.0-4.0); HEMATOCRIT 33.7 % (35.0-46.0); HEMOGLOBIN 11.6 GM/DL (11.6-15.3); LYMPH % 24.7 % (9.0-44.0); MEAN CELL VOLUME 81.7 FL (80.0-100.0); MEAN CORPUSCULAR HGB CONC 34.3 % (32.0-36.0); MEAN PLATELET VOLUME 8.1 FL (7.0-11.0); MONO % 12.4 % (0.0-8.0); NEUT % 58.4 % (16.0-70.0); PLATELET COUNT 251 TH/MM3 (150-450); RED BLOOD COUNT 4.13 MIL/MM3 (4.00-5.30); RED CELL DISTRIBUTION WIDTH 13.8 % (11.6-17.2); WHITE BLOOD COUNT 8.2 TH/MM3 (4.0-11.0)
[2017-10-08 05:12] LABS: BICARBONATE 28.8 MEQ/L (21.0-32.0); CALCIUM 8.8 MG/DL (8.5-10.1); CREATININE 0.56 MG/DL (0.50-1.00)
[2017-10-08] MEDS: SODIUM CHLORIDE 0.9% FLUSH 10 ML FLUSH IV FLUSH SCH ×2 (09:17→20:30)
[2017-10-08] MEDS: amLODIPine BESYLATE 5 MG TAB PO SCH (09:17)
[2017-10-08] MEDS: DOCUSATE SODIUM 100 MG CAP PO SCH ×2 (09:17→20:30)
[2017-10-08] MEDS: MAGNESIUM HYDROXIDE SUSP 30 ML CUP PO PRN (09:17)
[2017-10-08] MEDS: THIAMINE INJ 100 MG in SODIUM CHLORIDE 0.9% INJ 100 ML IV SCH (09:19)
[2017-10-08] MEDS: PANTOPRAZOLE SOD 40 MG DELAYED RELEASE TAB PO SCH (09:19)
--- NOTE | 2017-10-08 14:00 | HHI.CCPN ---
Subjective Remarks/Hospital Course Patient is a 87-year-old female that presents to the ED after sustaining a fall 2-3 days ago apparently landed on her back. Denies hitting her head. Her friend reported patient had been intermittently confused after the fall also complaining of back pain and dizziness. Patient has a history of subdural hematoma which was evacuated by Dr. Ramos June 2017. CT head showed large acute epidural hematoma along the left frontoparietal region measuring 21 mm with 8 mm of subfalcine herniation to the right. Acute subdural components also noted within left posterior parietal region. CT of the lumbar spine showed L3 compression fracture of indeterminate age and severe lumbar spinal stenosis\ I evaluated the patient in the ED. Patient is alert awake pleasant, oriented to person and place. Cannot recall the exact date of previous subdural hematoma evacuation. I discussed with Dr. Ramos. Patient has a large epidural hematoma with mass effect. Emergency evacuation of the epidural hematoma is indicated and Dr. Ramos is agreeable. I have ordered stat mannitol 25 g IV 1 also will start on Keppra 500 mg IV every 12 for seizure prophylaxis 10/06: Afebrile. Resting in bed in no acute distress on 5 L nasal cannula.. Tolerating diet. Complaining of back pain. 10/07: Afebrile. Currently in 4 L nasal cannula. DAVIAN -260s SS. No bowel movement. Tolerating diet. Subjective 10/08: Afebrile. On room air. DAVIAN removed today. Episode of excessive patient motion 5 minutes without other focal motor or sensory deficits. Stat CT brain/ CTA brain/neck pending Objective Vital Signs Date Time Temp Pulse Resp B/P (MAP) Pulse Ox O2 Delivery O2 Flow Rate FiO2 10/08/17 10:00 70 10/08/17 09:20 96 Nasal Cannula 3.00 10/08/17 08:00 98.1 17 135/67 (89) Intake and Output 10/08/17 10/08/17 10/08/17 07:59 15:59 23:59 Output Total 25 ml Balance -25 ml Result Diagram: 10/08/17 0408 10/08/17 0408 Imaging Last Impressions Head CT 10/07/17 0000 Signed Impressions: Service Date/Time: Sunday, October 08, 2017 00:42 - CONCLUSION: 1. Post surgical with significant reduction of the previous is seen mass effect and midline shift as well as the anterior portion of the subdural hematoma. 2. The posterior subdural hematoma remains measuring 15 mm in thickness 1. Wili Richardson MD Lumbar Spine MRI 10/06/17 0000 Signed Impressions: Service Date/Time: Friday, October 06, 2017 13:42 - CONCLUSION: 1. Multilevel degenerative disc disease most severe at L3-L4 with severe spinal canal stenosis secondary to disc bulge and posterior element hypertrophy Wili Richardson MD Chest X-Ray 10/05/17 1126 Signed Impressions: Service Date/Time: Thursday, October 05, 2017 12:11 - CONCLUSION: 1. Mild hepatomegaly. 2. No acute focal pulmonary infiltrate or pulmonary vascular congestion. Mg Magallon MD Lumbar Spine CT 10/05/17 0000 Signed Impressions: Service Date/Time: Thursday, October 05, 2017 11:50 - CONCLUSION: 1. Moderate compression deformity involving L3 of indeterminate age. 2. Grade I anterolisthesis of L4 relation to L5. 3. Severe spinal stenosis and moderate bilateral foraminal narrowing at L4-5. 4. Moderate spondylosis and bilateral foraminal narrowing at L2-3. 5. Moderate spinal stenosis and mild bilateral foraminal narrowing at L3-4. 6. Mild spinal stenosis and moderate to severe bilateral foraminal narrowing at L5-S1. 7. Facet joint hypertrophy bilaterally throughout the lumbar spine. 8. Uncomplicated sigmoid diverticulosis. Mg Magallon MD Hip and Pelvis X-Ray 10/05/17 0000 Signed Impressions: Service Date/Time: Thursday, October 05, 2017 12:03 - CONCLUSION: 1. No acute fracture or dislocation. 2. Degenerative changes involving the lower lumbar spine, bilateral hips and symphysis pubis. Mg Magallon MD Carotid Artery Ultrasound 10/05/17 0000 Signed Impressions: Service Date/Time: Thursday, October 05, 2017 17:55 - CONCLUSION: Moderate calcified plaque without evidence of hemodynamically significant stenosis. Antegrade flow both vertebral arteries. Wilber Stovall MD Objective Remarks GEN: 81-year-old pleasant female resting in bed on nasal cannula SKIN: Warm and dry. HEAD: Status post left frontotemporoparietal craniotomy. Christmas are clean dry and intact. Left DAVIAN with SS output. 55 cc past 24 hours EYES: Pupils round, appears equal ENT: No nasal bleeding or discharge. Tongue is midline. No uvula deviation. NECK: Trachea midline. No JVD. CARDIOVASCULAR: Regular rate and rhythm. S1, S2. No S4. No murmurs RESPIRATORY: No accessory muscle use. Clear to auscultation. Breath sounds equal bilaterally. GASTROINTESTINAL: Abdomen soft, non-tender, nondistended. MUSCULOSKELETAL: Extremities without clubbing, cyanosis, or edema. + Pulses bilaterally. NEUROLOGICAL: Awake and alert and oriented to person, place but not year (1917 instead of 2017).. No obvious cranial nerve deficits. Motor grossly within normal limits. Five out of 5 muscle strength in the arms and legs. Normal speech. Episodic expressive aphasia resolved. A/P Assessment and Plan NEURO/PSYCH: Acute traumatic left-sided epidural hematoma 21 mm along with left subdural hematoma 8mm left to right midline shift Acute encephalopathy Previous history of right-sided subdural hematoma 07/16 Chronic benzodiazepine use L3/4 spinal stenosis secondary to disc bulging History of cataracts Status post Dr. Ramos status post left frontal temporoparietal craniotomy with evacuation of epidural hematoma 10/05 Currently on hydrocodone/acetaminophen 10/325 one to 2 tablets Every 4 hours when necessary pain - Morphine sulfate 2- 4 mg IV every 2 hours when necessary pain -Levetiracetam 500 mg IV twice a day 7 days seizure prophylaxis - Fall evaluation, PT/OT post op Holding alprazolam 0.25 mg by mouth twice a day as needed for anxiety On thiamine 100 mg IV daily 3 days MRI L-spine revealed severe spinal stenosis with disc bulging at L3/4 Carotid ultrasound moderate plaque without hemodynamically significant stenosis CT brain 10/08P - ost surgical with significant reduction of the previous is seen mass effect and midline shift as well as the anterior portion of the subdural hematoma. The posterior subdural hematoma remains measuring 15 mm in thickness Due to expressive aphasia episode, stat CT brain, CT brain/neck currently. EEG ordered stat Dr. Ramos made aware RESP: - Nasal cannula oxygen currently at 4 L to maintain saturations greater or equal to 90% - Aggressive pulmonary toilet, with Acapella every 6 hours - Albuterol/ipratropium aerosols every 6 hours with albuterol aerosols every 2 hours. Dyspnea CV: Hypertension History dyslipidemia - Normal saline with KCl IV fluids at 100 cc an hour discontinued 1/8 - 2 D Echo, The left ventricular systolic function is normal with an estimated ejection fraction in the range of 60-65%. Hdfgo-jl-[id number] mitral valve regurgitation. Aortic valve sclerosis is present. No aortic valve regurgitation. No aortic valve stenosis. There is mild tricuspid valve regurgitation. The estimated pulmonary arterial pressure is 26.8 mmHg. Carotid Doppler revealed moderate stenosis without flow-limiting right - Target SBP <150 Amlodipine 10 mg by mouth daily home medication. Resume at 2.5 mg daily GI: Gastroesophageal reflux disease Hypoalbuminemia Regular basic diet Pantoprazole 40 mg daily for GI prophylaxis. On omeprazole 20 mg daily at home Docusate sodium 100 mg by mouth twice a day for bowel regimen : - Monitor renal function closely. Fernandez catheter. ID: - Perioperative antibiotics per Dr. Ramos completed cefazolin 1 g IV 3 dosages Pending urine HEME: Normocytic anemia - Monitor CBC, CMP. Follow trends ENDO: Hypokalemia - Electrolyte replacement per protocol PROPH: - Bilateral lower extremity SCDs/CARMELO. IV pantoprazole for GI prophylaxis - Chemical DVT prophylaxis is contraindicated LINES: - Utilize peripheral IVs, central line if needed Level II follow-up Kenneth Melgar MD Oct 08, 2017 14:00
[2017-10-08] MEDS ORDERED: POTASSIUM CHLORIDE 10 MEQ CONTROLLED RELEASE TAB PO ONE (14:25)
--- NOTE | 2017-10-08 15:15 | HHI.NSPN ---
(Clara Jack) Note Status Status: Progress Note (Clara Jack) Interval History Interval History Ms Becerra is a 87 year old male who was brought to [facility] with recurrent falls. CT of the brain showed a large left subdural hematoma with increasing maximun thickness of 20mm, mass effect and midline shift. A surgical decompression was indicated as recommended by the Trauma Committee of [employer]. She underwent a Left frontal temporal parietal craniotomy, evacuation of subdural hematoma on Oct 05, 2017. 10/06: stable post-op, alert, moves all four ext, c/o of back pain, poss acute L3 compression fracture per CT 10/07: mild headaches today, and persistent lumbar pain. MRI L spine shows chronic compression fracture with degenerative spondylosis. 10/08: patient was seen this morning during rounds, doing well eating her breakfast, no focal neuro deficits. CT Head yesterday with improved left subdural hematoma and improved midline shift. Returned earlier this afternoon to remove DAVIAN drain, and immediately following drain removal patient developed expressive dysphasia. She was however able to follow commands, facial and extremity motor are symmetric. There were no seizure like activities, no LOC. DAVIAN site was closed with single stitch due to moderate leaking from site, and following closure of DAVIAN site, patient's speech improved. critical care was present during her episode, for stat repeat CT head. (Clara Jack) Labs, Micro, & Vital Signs Results Date Time Temp Pulse Resp B/P (MAP) Pulse Ox O2 Delivery O2 Flow Rate FiO2 10/08/17 10:00 70 10/08/17 09:20 96 Nasal Cannula 3.00 10/08/17 08:00 98.1 68 17 135/67 (89) 94 10/08/17 08:00 68 10/08/17 07:30 98 Nasal Cannula 3.00 10/08/17 06:00 78 10/08/17 04:00 74 10/08/17 04:00 98.2 74 30 140/64 (89) 97 10/08/17 02:00 70 10/08/17 00:00 70 10/08/17 00:00 98.7 70 17 149/69 (95) 96 10/07/17 22:00 70 10/07/17 20:58 98 Nasal Cannula 3.00 10/07/17 20:00 74 10/07/17 20:00 97.7 74 14 117/65 (82) 98 10/07/17 19:00 97 Nasal Cannula 3.00 10/07/17 16:00 98.8 74 164/89 (114) 10/07/17 15:00 73 Constitutional Vital Signs Date Time Temp Pulse Resp B/P (MAP) Pulse Ox O2 Delivery O2 Flow Rate FiO2 10/08/17 10:00 70 10/08/17 09:20 96 Nasal Cannula 3.00 10/08/17 08:00 98.1 68 17 135/67 (89) 94 10/08/17 08:00 68 10/08/17 07:30 98 Nasal Cannula 3.00 10/08/17 06:00 78 10/08/17 04:00 74 10/08/17 04:00 98.2 74 30 140/64 (89) 97 10/08/17 02:00 70 10/08/17 00:00 70 10/08/17 00:00 98.7 70 17 149/69 (95) 96 10/07/17 22:00 70 10/07/17 20:58 98 Nasal Cannula 3.00 10/07/17 20:00 74 10/07/17 20:00 97.7 74 14 117/65 (82) 98 10/07/17 19:00 97 Nasal Cannula 3.00 10/07/17 16:00 98.8 74 164/89 (114) 10/07/17 15:00 73 (Clara Jack) Physical Exam Ms. Becerra is alert. Episode of expressive dysphasia, stuttering and difficulty getting words out lasted approx 3-5 minutes. Surgical incision healing well. Cranial nerve examination: pupils equal, round and reactive to light. Extra- ocular movements are intact. Facial motor and sensory function are normal and symmetrical. Tongue protruded midline. Neck is soft and supple Motor: moving all four extremities symmetrically Cerebellar: intact finger to nose test b/l (Clara Jack) Medications Current Medications Current Medications Medications (Trade) Dose Ordered Sig/Hannah Route PRN Reason Start Time Stop Time Status Last Admin Dose Admin Sodium Chloride (NS Flush) 2 ml UNSCH PRN IV FLUSH FLUSH AFTER USING IV ACCESS 10/05/17 12:45 Sodium Chloride (NS Flush) 2 ml BID IV FLUSH 10/05/17 21:00 10/08/17 09:17 Miscellaneous Information 1 [id number] XX 10/05/17 12:45 Chlorhexidine Gluconate (Chlorhexidine 2% Cloth) 3 pack Taper DAILY@04 TOP 10/06/17 04:00 10/02/18 03:59 Chlorhexidine Gluconate (Chlorhexidine 2% Cloth) 3 pack UNSCH PRN TOP HYGIENIC CARE 10/05/17 12:45 Magnesium Hydroxide (Milk Of Magnesia Liq) 30 ml Q12H PRN PO Mild constipation 10/05/17 12:45 10/08/17 09:17 Sennosides (Senokot) 17.2 mg Q12H PRN PO Moderate constipation 10/05/17 12:45 Bisacodyl (Dulcolax Supp) 10 mg DAILY PRN RECTAL SEVERE CONSITIPATION 10/05/17 12:45 Lactulose (Lactulose Liq) 30 ml DAILY PRN PO SEVERE CONSITIPATION 10/05/17 12:45 Levetriacetam 500 mg/Sodium Chloride 105 ml @ 420 mls/hr Q12H IV 10/05/17 15:00 10/08/17 02:06 Potassium Chloride 100 ml @ 50 mls/hr Q2H PRN IV For Potassium 2.8 - 3.2 mEq/L 10/05/17 13:00 Potassium Chloride 100 ml @ 50 mls/hr Q2H PRN IV For Potassium 2.8 - 3.2 mEq/L 10/05/17 13:00 Potassium Bicarb/ Potassium Chloride (K-Lyte Cl Eff) 50 meq UNSCH PRN PO For Potassium 3.3 - 3.5 mEq/L 10/05/17 13:00 Potassium Chloride 100 ml @ 25 mls/hr UNSCH PRN IV For Potassium 3.3 - 3.5 mEq/L 10/05/17 13:00 Potassium Chloride 100 ml @ 50 mls/hr Q2H PRN IV For Potassium 3.3 - 3.5 mEq/L 10/05/17 13:00 Magnesium Sulfate 4 gm/Sodium Chloride 100 ml @ 50 mls/hr UNSCH PRN IV For Magnesium 0.9 - 1.1 mg/dL 10/05/17 13:00 Magnesium Oxide (Mag-Ox) 800 mg UNSCH PRN PO For Magnesium 1.2 - 1.6 mg/dL 10/05/17 13:00 Magnesium Sulfate 2 gm/Sodium Chloride 100 ml @ 50 mls/hr UNSCH PRN IV For Magnesium 1.2 - 1.6 mg/dL 10/05/17 13:00 Potassium Phosphate (K-Phos) 2,000 mg Q4H PRN PO For Phosphorus < 2.5 mg/dL 10/05/17 13:00 Sodium Phosphate 30 mmol/Sodium Chloride 250 ml @ 42 mls/hr UNSCH PRN IV For Phosphorus < 2.5 mg/dL 10/05/17 13:00 Potassium Phosphate (K-Phos) 2,000 mg UNSCH PRN PO/TUBE SEE LABEL COMMENTS 10/05/17 13:00 Potassium Phosphate 30 mmol/ Sodium Chloride 260 ml @ 42 mls/hr UNSCH PRN IV SEE LABEL COMMENTS 10/05/17 13:00 Thiamine HCl 100 mg/Sodium Chloride 101 ml @ 101 mls/hr DAILY IV 10/05/17 15:00 10/09/17 08:59 10/08/17 09:19 Bisacodyl (Dulcolax Supp) 10 mg DAILY PRN RECTAL CONSTIPATION 10/05/17 15:15 Docusate Sodium (Colace) 100 mg BID PO 10/05/17 21:00 10/08/17 09:17 Pantoprazole Sodium (Protonix) 40 mg DAILY PO 10/06/17 09:00 10/08/17 09:19 Ondansetron HCl (Zofran Inj) 4 mg Q6H PRN IV PUSH NAUSEA OR VOMITING 10/05/17 15:15 Calcium Gluconate (Calcium Gluconate Inj) 1 gm UNSCH PRN IV SEE LABEL COMMENTS 10/05/17 15:15 Potassium Chloride 100 ml @ 50 mls/hr UNSCH PRN IV POTASSIUM LESS THAN 4 10/05/17 15:15 Magnesium Sulfate 4 gm/Sodium Chloride 108 ml @ 108 mls/hr UNSCH PRN IV MAGNESIUM LESS THAN 2 10/05/17 15:15 Acetaminophen/ Hydrocodone Bitart ([place] 10-325 Mg) 1 tab Q4H PRN PO PAIN SCALE 1 TO 5 10/05/17 15:15 10/07/17 16:54 Acetaminophen/ Hydrocodone Bitart ([place] 10-325 Mg) 2 tab Q4H PRN PO PAIN SCALE 6 TO 10 10/05/17 15:15 Acetaminophen (Tylenol) 650 mg Q4H PRN PO TEMPERATURE > 101.5 F 10/05/17 15:15 Morphine Sulfate (Morphine Inj) 2 mg Q2H PRN IV PUSH PAIN SCALE 1 TO 6 10/06/17 00:15 10/07/17 17:47 Morphine Sulfate (Morphine Inj) 4 mg Q2H PRN IV PUSH PAIN SCALE 7 TO 10 10/06/17 00:15 10/06/17 01:03 Albuterol/ Ipratropium (Duoneb Neb) 1 ampule Q6HR NEB NEB 10/06/17 22:00 10/08/17 09:19 Albuterol Sulfate (Albuterol Neb) 2.5 mg Q2HR NEB PRN NEB DYSPNEA 10/06/17 21:00 10/06/17 22:22 Amlodipine Besylate (Norvasc) 2.5 mg DAILY PO 10/07/17 09:00 10/08/17 09:17 (Clara Jack) Medical Decision Making MDM Remarks 87 y/o female s/p left frontal temporal parietal craniotomy, evacuation of subdural hematoma on 10/05/17 possible acute L3 compression fracture, chronic fracture on MRI lumbar spine - with chronic degenerative spondylosis 10/08 episode of expressive aphasia lasted few minutes, patient was able however to comprehend and follow commands, no other focal neurological findings. No other seizure like activities. (Clara Jack) Plan Plan Remarks awaiting repeat CT Brain cont close neuro check on Keppra for sz prophylaxis nonchemical dvt prophylaxis in view of acute ICH protonix for stress ulcer proph (Clara Jack) Attending Statement The exam, history, and the medical decision-making described in the above note were completed with the assistance of the mid-level provider. I reviewed and agree with the findings presented. I attest that I had a [id number] encounter with the patient on the same day, and personally performed and documented my assessment and findings in the medical record. (Rachel,YonatanClara Tariq Oct 08, 2017 15:14 Yonatan Ramos MD Oct 13, 2017 09:17
[2017-10-08] MEDS ORDERED: IOHEXOL 350 MG/ML 10 ML VIAL (for RAD DIAG) IVCONTRAST ONE (16:18)
--- NOTE | 2017-10-08 16:27 | RADRPT ---
EXAM DATE/TIME: 10/08/2017 15:52 [facility] COMPARISON: CT BRAIN W/O CONTRAST, October 08, 2017, 0:42. INDICATIONS : Expressive aphasia. Patient with known left subdural hematoma. RADIATION DOSE: 56.35 CTDIvol (mGy) MEDICAL HISTORY : Hypertension. Subdural hematoma, 2016 SURGICAL HISTORY : Cranial sx. ENCOUNTER: Initial ACUITY: 1 day PAIN SCALE: 8/10 LOCATION: Bilateral cranial TECHNIQUE: Multiple contiguous axial images were obtained of the head. Using automated exposure control and adj ustment of the mA and/or kV according to patient size, radiation dose was kept as low as reasonably a chievable to obtain optimal diagnostic quality images. DICOM format image data is available electro nically for review and comparison. FINDINGS: There has been interval removal of the previously noted left subdural drainage catheter. Gas is now noted in the left subdural space over the left frontal lobe. The subdural hematoma is otherwise n ot significantly changed with mixed areas of high and intermediate density. There is mild mass effect and mild midline shift to the right again noted of approximately 4 mm. This does not appear signific antly changed as well. There is no new hemorrhage or mass effect. The posterior fossa and brainstem r emain intact. The bone windows demonstrate postsurgical changes status post left craniotomy. [place] hol e is noted in the right frontal bone. CONCLUSION: 1. Interval removal of previously noted left subdural drainage catheter. 2. Gas is noted within the left subdural space. The previously noted hemorrhages otherwise not signif icant change. 3. Mild mass effect and midline shift remain. 4. No new hemorrhage or mass effect identified. Booker Elizondo MD on October 08, 2017 at 16:20 Board Certified Radiologist. This report was verified electronically.
[2017-10-08] MEDS: MORPHINE SULFATE 2 MG/ML INJ IV PUSH PRN (16:32)
--- NOTE | 2017-10-08 17:29 | RADRPT ---
EXAM DATE/TIME: 10/08/2017 15:56 [facility] COMPARISON: No previous studies available for comparison. INDICATIONS : Expressive aphasia. IV CONTRAST: 85 cc Omnipaque 350 (iohexol) IV RADIATION DOSE: 10.37 CTDIvol (mGy) ; Combined studies MEDICAL HISTORY : Hypertension. Subdural hematoma, jun 2017 SURGICAL HISTORY : Cranial sx. ENCOUNTER: Initial ACUITY: 1 day PAIN SCALE: 7/10 LOCATION: Bilateral cranial TECHNIQUE: Volumetric scanning was performed using a multi-row detector CT scanner. The data was post processed with a variety of visualization algorithms including full volume maximum intensity projection, multi -planar sliding thin slab reformation, curved planar reformation, and surface rendering techniques. Using automated exposure control and adjustment of the mA and/or kV according to patient size, radiat ion dose was kept as low as reasonably achievable to obtain optimal diagnostic quality images. DICO M format image data is available electronically for review and comparison. FINDINGS: Anterior circulation: Mild calcified plaque in the cavernous carotid arteries bilaterally. Distal intracranial internal car otid arteries are otherwise patent with flow extending to the middle and anterior cerebral arteries. There is no evidence for aneurysm, vessel truncation or stenosis, and no evidence for vascular malfor mation. Posterior circulation: Symmetric distal vertebral arteries with flow extending to basilar artery. There is no evidence for aneurysm, vessel truncation or stenosis, and no evidence for vascular malformation. CONCLUSION: 1. Unremarkable CTA examination of the brain. Specifically, no evidence of large vessel occlusion or significant intracranial flow-limiting stenosis. Frank Sweet MD on October 08, 2017 at 17:24 Board Certified Radiologist. This report was verified electronically.
--- NOTE | 2017-10-08 18:06 | RADRPT ---
EXAM DATE/TIME: 10/08/2017 15:56 [facility] COMPARISON: No previous studies available for comparison. INDICATIONS : Expressive aphasia. IV CONTRAST: 85 cc Omnipaque 350 (iohexol) IV RADIATION DOSE: 10.37 CTDIvol (mGy) ; Combined studies MEDICAL HISTORY : Hypertension. Subdural hematoma, 2016 SURGICAL HISTORY : Cranial sx. ENCOUNTER: Initial ACUITY: 1 day PAIN SCALE: 8/10 LOCATION: Bilateral cranial Elevated flow velocities and ICA/CCA ratios have been found to correlate with increased degrees of vessel stenosis, calculated as percentage of diameter relative to a normal segment of distal ICA/CCA. TECHNIQUE: Volumetric scanning was performed using a multirow detector CT scanner. The data was post processed with a variety of visualization algorithms including full-volume maximum intensity projection, multip lanar sliding thin-slab reformation, curved-planar reformation, and surface-rendering techniques. Us ing automated exposure control and adjustment of the mA and/or kV according to patient size, radiatio n dose was kept as low as reasonably achievable to obtain optimal diagnostic quality images. DICOM f ormat image data is available electronically for review and comparison. FINDINGS: AORTIC ARCH: There is a three-vessel origin of the great vessels from the aorta. No evidence of ostial narrowing. RIGHT CAROTID: The common carotid artery is intact. The carotid bulb has a normal configuration without ulceration o r narrowing. Eccentric calcified plaque in the origin of the internal carotid artery with resultant a pproximate 20% stenosis. Internal carotid artery is otherwise patent with flow extending to the skull base. Incidental node is made of medial retropharyngeal course of the internal carotid artery. The e xternal carotid artery is intact. LEFT CAROTID: The common carotid artery is intact. Eccentric calcified plaque extending from the distal bulb to the origin of the internal carotid artery with resultant approximate 20% stenosis. Internal carotid freddy ry is otherwise patent with flow extending to the skull base. The external carotid artery is intact. VERTEBRALS: The vertebral arteries have a symmetric diameter. No stenotic lesions are seen. Nonvascular findings: Lung apices are clear. Thyroid appears unremarkable by CT. No gross cervical mass or adenopathy. CONCLUSION: 1. Eccentric calcified plaque in the proximal internal carotid arteries bilaterally with resultant ap proximate 20% stenosis. 2. Incidental note of medial retropharyngeal course of the right internal carotid artery. 3. Codominant patent vertebral arteries. Frank Sweet MD on October 08, 2017 at 17:59 Board Certified Radiologist. This report was verified electronically.
--- NOTE | 2017-10-08 23:18 | MG ---
cc: ALEJANDRO LEDEZMA MD Sex: F DATE OF [address] Melgar MEDICAL HISTORY Subdural hematoma status post evacuation in June 2017, anxiety, GERD, hyperlipidemia, hypertension. MEDICATIONS 1. Keppra. 2. Norvasc. 3. Thiamine. 4. Randolph. 5. Protonix. DESCRIPTION The background activity is 6-7 Hz theta located posteriorly bilateral and symmetrical. During the recording there is intermittent left parietal sharp discharges and an occasional right, with intermittent slowing of the background. There is right temporal electrode artifact. There is no ictal activity needed. Hyperventilation was omitted. Photic stimulation did not elicit driving response. During the EEG recording there was transition to sleep. There was no ictal activity. INTERPRETATION This is an abnormal awake and drowsy EEG. There were sharp discharges intermittently at the left parietal lesion and also on the right hemisphere, that may be epileptogenic in nature. There was intermittent slowing that may indicate an encephalopathic pattern. There was no ictal activity noted. Clinical correlation is recommended. Alejandro Ledezma MD [facility] /10:50 PM /11:06 PM MTDAdolph
[2017-10-09] VITALS (16 sets, daily range): BP systolic 120–138; BP diastolic 56–66; PULSE 70–88; RESP 19–29; TEMP 98.1–98.9; O2SAT 89–96
[2017-10-09] MEDS: levETIRAcetam INJ 500 MG in SODIUM CHLORIDE 0.9% INJ 100 ML IV SCH ×2 (03:06→15:00)
[2017-10-09] MEDS: RESP: ALBUTEROL 2.5 MG/IPRATROPIUM 0.5 MG NEB (SCH) NEB ×4 (04:01→21:34)
[2017-10-09 05:15] LABS: HEMATOCRIT 32.9 % (35.0-46.0); HEMOGLOBIN 11.2 GM/DL (11.6-15.3); MEAN CELL VOLUME 81.4 FL (80.0-100.0); MEAN CORPUSCULAR HEMOGLOBIN 27.7 PG (27.0-34.0); MEAN PLATELET VOLUME 8.4 FL (7.0-11.0); PLATELET COUNT 255 TH/MM3 (150-450); RED BLOOD COUNT 4.04 MIL/MM3 (4.00-5.30); RED CELL DISTRIBUTION WIDTH 13.8 % (11.6-17.2); WHITE BLOOD COUNT 7.7 TH/MM3 (4.0-11.0)
[2017-10-09 05:38] LABS: BICARBONATE 31.6 MEQ/L (21.0-32.0); CALCIUM 8.7 MG/DL (8.5-10.1); CREATININE 0.68 MG/DL (0.50-1.00); MAGNESIUM 2.2 MG/DL (1.5-2.5); PHOSPHORUS 2.7 MG/DL (2.5-4.9)
[2017-10-09] MEDS: SODIUM CHLORIDE 0.9% FLUSH 10 ML FLUSH IV FLUSH SCH ×2 (09:00→20:04)
[2017-10-09] MEDS: PANTOPRAZOLE SOD 40 MG DELAYED RELEASE TAB PO SCH (09:10)
[2017-10-09] MEDS: DOCUSATE SODIUM 100 MG CAP PO SCH ×2 (09:11→20:03)
[2017-10-09] MEDS: amLODIPine BESYLATE 5 MG TAB PO SCH (09:11)
--- NOTE | 2017-10-09 10:26 | HHI.NSPN ---
(Clara Jack) Note Status Status: Progress Note (Clara Jack) Status: Progress Note (Yonatan Ramos MD) Interval History Interval History Ms Becerra is a 87 year old male who was brought to [facility] with recurrent falls. CT of the brain showed a large left subdural hematoma with increasing maximun thickness of 20mm, mass effect and midline shift. A surgical decompression was indicated as recommended by the Trauma Committee of [employer]. She underwent a Left frontal temporal parietal craniotomy, evacuation of subdural hematoma on Oct 05, 2017. 10/06: stable post-op, alert, moves all four ext, c/o of back pain, poss acute L3 compression fracture per CT 10/07: mild headaches today, and persistent lumbar pain. MRI L spine shows chronic compression fracture with degenerative spondylosis. 10/08: patient was seen this morning during rounds, doing well eating her breakfast, no focal neuro deficits. CT Head yesterday with improved left subdural hematoma and improved midline shift. Returned earlier this afternoon to remove DAVIAN drain, and immediately following drain removal patient developed expressive dysphasia. She was however able to follow commands, facial and extremity motor are symmetric. There were no seizure like activities, no LOC. DAVIAN site was closed with single stitch due to moderate leaking from site, and following closure of DAVIAN site, patient's speech improved. critical care was present during her episode, for stat repeat CT head. 10/09: denies any further speech difficulties since yesterday, denies focal weakness, vision changes, headaches. requesting to go home, but agrees to [facility] inpatient rehab. f/u CT Heads unremarkable with stable findings. EEG also obtained yesterday shows sharp discharges. (Clara Jack) Labs, Micro, & Vital Signs Results Date Time Temp Pulse Resp B/P (MAP) Pulse Ox O2 Delivery O2 Flow Rate FiO2 10/09/17 10:00 75 10/09/17 08:34 94 10/09/17 08:00 70 10/09/17 07:00 98 Room Air 21 10/09/17 06:00 72 10/09/17 04:04 94 21 10/09/17 04:00 98.9 74 29 126/61 (82) 89 10/09/17 04:00 74 10/09/17 02:00 72 10/09/17 00:00 80 10/09/17 00:00 98.7 80 22 125/60 (81) 96 10/08/17 22:00 72 10/08/17 21:02 99 Nasal Cannula 4.00 10/08/17 20:00 98.2 72 20 115/57 (76) 99 10/08/17 20:00 72 10/08/17 19:00 99 Nasal Cannula 3.00 10/08/17 18:00 72 10/08/17 17:00 20 10/08/17 16:00 98.9 76 26 157/72 (100) 96 10/08/17 16:00 76 10/08/17 14:00 76 10/08/17 12:00 98.2 74 25 124/61 (82) 96 10/08/17 12:00 74 Constitutional Vital Signs Date Time Temp Pulse Resp B/P (MAP) Pulse Ox O2 Delivery O2 Flow Rate FiO2 10/09/17 10:00 75 10/09/17 08:34 94 10/09/17 08:00 70 10/09/17 07:00 98 Room Air 21 10/09/17 06:00 72 10/09/17 04:04 94 21 10/09/17 04:00 98.9 74 29 126/61 (82) 89 10/09/17 04:00 74 10/09/17 02:00 72 10/09/17 00:00 80 10/09/17 00:00 98.7 80 22 125/60 (81) 96 10/08/17 22:00 72 10/08/17 21:02 99 Nasal Cannula 4.00 10/08/17 20:00 98.2 72 20 115/57 (76) 99 10/08/17 20:00 72 10/08/17 19:00 99 Nasal Cannula 3.00 10/08/17 18:00 72 10/08/17 17:00 20 10/08/17 16:00 98.9 76 26 157/72 (100) 96 10/08/17 16:00 76 10/08/17 14:00 76 10/08/17 12:00 98.2 74 25 124/61 (82) 96 10/08/17 12:00 74 (Clara Jack) Review of Systems Constitutional: DENIES: Fever, Chills Neurologic: DENIES: Headache, Localized weakness, Speech Problems (Clara Jack) Physical Exam Ms. Becerra is today alert, speech is appropriate, follows commands without apraxia. Surgical incision healing well. DAVIAN drain site stitch without drainage. Cranial nerve examination: pupils equal, round and reactive to light. Extra- ocular movements are intact. Facial motor and sensory function are normal and symmetrical. Tongue protruded midline. Neck is soft and supple Motor: moving all four extremities symmetrically Cerebellar: intact finger to nose test b/l (Clara Jack) Medications Current Medications Current Medications Medications (Trade) Dose Ordered Sig/Hannah Route PRN Reason Start Time Stop Time Status Last Admin Dose Admin Sodium Chloride (NS Flush) 2 ml UNSCH PRN IV FLUSH FLUSH AFTER USING IV ACCESS 10/05/17 12:45 Sodium Chloride (NS Flush) 2 ml BID IV FLUSH 10/05/17 21:00 10/08/17 20:30 Miscellaneous Information 1 [id number] XX 10/05/17 12:45 Chlorhexidine Gluconate (Chlorhexidine 2% Cloth) 3 pack Taper DAILY@04 TOP 10/06/17 04:00 10/02/18 03:59 Chlorhexidine Gluconate (Chlorhexidine 2% Cloth) 3 pack UNSCH PRN TOP HYGIENIC CARE 10/05/17 12:45 Magnesium Hydroxide (Milk Of Magnesia Liq) 30 ml Q12H PRN PO Mild constipation 10/05/17 12:45 10/08/17 09:17 Sennosides (Senokot) 17.2 mg Q12H PRN PO Moderate constipation 10/05/17 12:45 Bisacodyl (Dulcolax Supp) 10 mg DAILY PRN RECTAL SEVERE CONSITIPATION 10/05/17 12:45 Lactulose (Lactulose Liq) 30 ml DAILY PRN PO SEVERE CONSITIPATION 10/05/17 12:45 Levetriacetam 500 mg/Sodium Chloride 105 ml @ 420 mls/hr Q12H IV 10/05/17 15:00 10/09/17 03:06 Potassium Chloride 100 ml @ 50 mls/hr Q2H PRN IV For Potassium 2.8 - 3.2 mEq/L 10/05/17 13:00 Potassium Chloride 100 ml @ 50 mls/hr Q2H PRN IV For Potassium 2.8 - 3.2 mEq/L 10/05/17 13:00 Potassium Bicarb/ Potassium Chloride (K-Lyte Cl Eff) 50 meq UNSCH PRN PO For Potassium 3.3 - 3.5 mEq/L 10/05/17 13:00 Potassium Chloride 100 ml @ 25 mls/hr UNSCH PRN IV For Potassium 3.3 - 3.5 mEq/L 10/05/17 13:00 Potassium Chloride 100 ml @ 50 mls/hr Q2H PRN IV For Potassium 3.3 - 3.5 mEq/L 10/05/17 13:00 Magnesium Sulfate 4 gm/Sodium Chloride 100 ml @ 50 mls/hr UNSCH PRN IV For Magnesium 0.9 - 1.1 mg/dL 10/05/17 13:00 Magnesium Oxide (Mag-Ox) 800 mg UNSCH PRN PO For Magnesium 1.2 - 1.6 mg/dL 10/05/17 13:00 Magnesium Sulfate 2 gm/Sodium Chloride 100 ml @ 50 mls/hr UNSCH PRN IV For Magnesium 1.2 - 1.6 mg/dL 10/05/17 13:00 Potassium Phosphate (K-Phos) 2,000 mg Q4H PRN PO For Phosphorus < 2.5 mg/dL 10/05/17 13:00 Sodium Phosphate 30 mmol/Sodium Chloride 250 ml @ 42 mls/hr UNSCH PRN IV For Phosphorus < 2.5 mg/dL 10/05/17 13:00 Potassium Phosphate (K-Phos) 2,000 mg UNSCH PRN PO/TUBE SEE LABEL COMMENTS 10/05/17 13:00 Potassium Phosphate 30 mmol/ Sodium Chloride 260 ml @ 42 mls/hr UNSCH PRN IV SEE LABEL COMMENTS 10/05/17 13:00 Bisacodyl (Dulcolax Supp) 10 mg DAILY PRN RECTAL CONSTIPATION 10/05/17 15:15 Docusate Sodium (Colace) 100 mg BID PO 10/05/17 21:00 10/09/17 09:11 Pantoprazole Sodium (Protonix) 40 mg DAILY PO 10/06/17 09:00 10/09/17 09:10 Ondansetron HCl (Zofran Inj) 4 mg Q6H PRN IV PUSH NAUSEA OR VOMITING 10/05/17 15:15 Calcium Gluconate (Calcium Gluconate Inj) 1 gm UNSCH PRN IV SEE LABEL COMMENTS 10/05/17 15:15 Potassium Chloride 100 ml @ 50 mls/hr UNSCH PRN IV POTASSIUM LESS THAN 4 10/05/17 15:15 Magnesium Sulfate 4 gm/Sodium Chloride 108 ml @ 108 mls/hr UNSCH PRN IV MAGNESIUM LESS THAN 2 10/05/17 15:15 Acetaminophen/ Hydrocodone Bitart ([place] 10-325 Mg) 1 tab Q4H PRN PO PAIN SCALE 1 TO 5 10/05/17 15:15 10/07/17 16:54 Acetaminophen/ Hydrocodone Bitart ([place] 10-325 Mg) 2 tab Q4H PRN PO PAIN SCALE 6 TO 10 10/05/17 15:15 Acetaminophen (Tylenol) 650 mg Q4H PRN PO TEMPERATURE > 101.5 F 10/05/17 15:15 10/08/17 15:34 Morphine Sulfate (Morphine Inj) 2 mg Q2H PRN IV PUSH PAIN SCALE 1 TO 6 10/06/17 00:15 10/08/17 16:32 Morphine Sulfate (Morphine Inj) 4 mg Q2H PRN IV PUSH PAIN SCALE 7 TO 10 10/06/17 00:15 10/06/17 01:03 Albuterol/ Ipratropium (Duoneb Neb) 1 ampule Q6HR NEB NEB 10/06/17 22:00 10/09/17 08:33 Albuterol Sulfate (Albuterol Neb) 2.5 mg Q2HR NEB PRN NEB DYSPNEA 10/06/17 21:00 10/06/17 22:22 Amlodipine Besylate (Norvasc) 2.5 mg DAILY PO 10/07/17 09:00 10/09/17 09:11 (Clara Jack) Medical Decision Making MDM Remarks 87 y/o female s/p left frontal temporal parietal craniotomy, evacuation of subdural hematoma on 10/05/17 possible acute L3 compression fracture, chronic fracture on MRI lumbar spine - with chronic degenerative spondylosis 10/08 episode of expressive aphasia lasted few minutes, patient was able however to comprehend and follow commands, no other focal neurological findings. No other seizure like activities. follow up CT Head with stable small pneumocephalus, stable residual midline shift, no new hemorrhages. CTA Head/Neck unremarkable for significant stenosis EEG 10/08 with sharp discharges may be epileptogenic in nature (Clara Jack) Plan Plan Remarks follow up CTs reviewed, stable findings, cont Keppra 500 mg q12 hours - Neurology evaluation for assistance in seizure management neuro stable, nonfocal exam ok to transfer out of unit to , [facility] by Neurology cont nonchemical dvt prophylaxis in view of acute ICH protonix for stress ulcer proph (Clara Jack) Attending Statement The exam, history, and the medical decision-making described in the above note were completed with the assistance of the mid-level provider. I reviewed and agree with the findings presented. I attest that I had a [id number] encounter with the patient on the same day, and personally performed and documented my assessment and findings in the medical record. (Yonatan Ramos MD) Clraa Jack Oct 09, 2017 10:26 Yonatan Ramos MD Oct 13, 2017 10:04
[2017-10-09] MEDS ORDERED: carBAMazepine 200 MG TAB PO ONE ×2 (12:45→20:00)
--- NOTE | 2017-10-09 12:50 | MB ---
cc: BISHNU PEREZ M.D. DATE OF CONSULTATION 10/09/2017 REASON FOR CONSULTATION The patient is an 87-year-old woman seen in regards to seizure management. HISTORY OF PRESENT ILLNESS The patient was admitted on 10/05/2017 with a history of a fall two or three days before and subsequent difficulty walking. She was brought to the hospital and found to have a subdural, large, left frontotemporal. She was treated with surgery and was doing well. Yesterday after the DAVIAN drain was removed the patient could not speak for approximately 3-5 minutes. This was apparently a severe aphasia. There was no obvious hemiparesis that I could gather. She has not had any symptom recurrence. An EEG showed some possible epileptiform discharge. The patient had a CT brain yesterday showing mild mass effect and midline shift, no new hemorrhage or new mass effect noted, essentially stable study. She has been on Keppra 500 mg twice a day, I believe since 10/05/2017. NEUROLOGICAL EXAMINATION The neurologic exam showed the patient to be quite alert, very pleasant, and appears very bright mentally. Family is at the bedside. She is moving all four extremities strongly. Ocular movements and visual mallory are full. Reflexes are 2+ and plantar response is flexor. ASSESSMENT Transient expressive aphasia yesterday. Status post large subdural hematoma drained through a left frontotemporal craniotomy three days ago. She had been on Keppra. She might have had a seizures yesterday to explain this neurologic deficit. It might have been a TIA. PLAN/RECOMMENDATIONS At this point I am going to start her on Tegretol 200 mg twice a day in addition to continuing the Keppra. She did have a CT angio head and neck yesterday that were essentially unremarkable for any significant stenotic disease. There is a plan for her to go to rehab and this appears to be reasonable. Thank you for asking us to assist in her care. MD DESTINY Gold/BT /11:54 AM /12:28 PM
[2017-10-09] MEDS: MORPHINE SULFATE 2 MG/ML INJ IV PUSH PRN (15:26)
[2017-10-09] MEDS: MAGNESIUM HYDROXIDE SUSP 30 ML CUP PO PRN (18:46)
[2017-10-09] MEDS: CHLORHEXIDINE GLUCONATE 2 % 1 PACK (2 CLOTHS) TOP SCH (19:42)
--- NOTE | 2017-10-09 20:12 | HHI.CCPN ---
Subjective Remarks/Hospital Course Patient is a 87-year-old female that presents to the ED after sustaining a fall 2-3 days ago apparently landed on her back. Denies hitting her head. Her friend reported patient had been intermittently confused after the fall also complaining of back pain and dizziness. Patient has a history of subdural hematoma which was evacuated by Dr. Ramos June 2017. CT head showed large acute epidural hematoma along the left frontoparietal region measuring 21 mm with 8 mm of subfalcine herniation to the right. Acute subdural components also noted within left posterior parietal region. CT of the lumbar spine showed L3 compression fracture of indeterminate age and severe lumbar spinal stenosis\ I evaluated the patient in the ED. Patient is alert awake pleasant, oriented to person and place. Cannot recall the exact date of previous subdural hematoma evacuation. I discussed with Dr. Ramos. Patient has a large epidural hematoma with mass effect. Emergency evacuation of the epidural hematoma is indicated and Dr. Ramos is agreeable. I have ordered stat mannitol 25 g IV 1 also will start on Keppra 500 mg IV every 12 for seizure prophylaxis 10/06: Afebrile. Resting in bed in no acute distress on 5 L nasal cannula.. Tolerating diet. Complaining of back pain. 10/07: Afebrile. Currently in 4 L nasal cannula. DAVIAN -260s SS. No bowel movement. Tolerating diet. 10/08: Afebrile. On room air. DAVIAN removed today. Episode of excessive word repetition 5 minutes without other focal motor or sensory deficits. Stat CT brain/CTA brain/neck pending Subjective 10/09: Resting comfortably in bed in no acute distress. Afebrile. No further seizure-like activity. Tolerating diet. Objective Vital Signs Date Time Temp Pulse Resp B/P (MAP) Pulse Ox O2 Delivery O2 Flow Rate FiO2 10/09/17 18:00 80 10/09/17 16:00 98.1 21 138/66 (90) 10/09/17 08:34 94 10/09/17 07:00 Room Air 21 10/08/17 21:02 4.00 Intake and Output 10/09/17 10/09/17 10/10/17 08:00 16:00 00:00 Intake Total 240 ml 620 ml Output Total 600 ml Balance 240 ml 20 ml Result Diagram: 10/09/17 0410 10/09/17 0410 Imaging Last Impressions Neck CTA 10/08/17 0000 Signed Impressions: Service Date/Time: Sunday, October 08, 2017 15:56 - CONCLUSION: 1. Eccentric calcified plaque in the proximal internal carotid arteries bilaterally with resultant approximate 20%% stenosis. 2. Incidental note of medial retropharyngeal course of the right internal carotid artery. 3. Codominant patent vertebral arteries. Frank Sweet MD Head CTA 10/08/17 0000 Signed Impressions: Service Date/Time: Sunday, October 08, 2017 15:56 - CONCLUSION: 1. Unremarkable CTA examination of the brain. Specifically, no evidence of large vessel occlusion or significant intracranial flow-limiting stenosis. Frank Sweet MD Head CT 10/08/17 0000 Signed Impressions: Service Date/Time: Sunday, October 08, 2017 15:52 - CONCLUSION: 1. Interval removal of previously noted left subdural drainage catheter. 2. Gas is noted within the left subdural space. The previously noted hemorrhages otherwise not significant change. 3. Mild mass effect and midline shift remain. 4. No new hemorrhage or mass effect identified. Booker Elizondo MD Lumbar Spine MRI 10/06/17 0000 Signed Impressions: Service Date/Time: Friday, October 06, 2017 13:42 - CONCLUSION: 1. Multilevel degenerative disc disease most severe at L3-L4 with severe spinal canal stenosis secondary to disc bulge and posterior element hypertrophy Wili Richardson MD Chest X-Ray 10/05/17 1126 Signed Impressions: Service Date/Time: Thursday, October 05, 2017 12:11 - CONCLUSION: 1. Mild hepatomegaly. 2. No acute focal pulmonary infiltrate or pulmonary vascular congestion. Mg Magallon MD Lumbar Spine CT 10/05/17 0000 Signed Impressions: Service Date/Time: Thursday, October 05, 2017 11:50 - CONCLUSION: 1. Moderate compression deformity involving L3 of indeterminate age. 2. Grade I anterolisthesis of L4 relation to L5. 3. Severe spinal stenosis and moderate bilateral foraminal narrowing at L4-5. 4. Moderate spondylosis and bilateral foraminal narrowing at L2-3. 5. Moderate spinal stenosis and mild bilateral foraminal narrowing at L3-4. 6. Mild spinal stenosis and moderate to severe bilateral foraminal narrowing at L5-S1. 7. Facet joint hypertrophy bilaterally throughout the lumbar spine. 8. Uncomplicated sigmoid diverticulosis. Mg Magallon MD Hip and Pelvis X-Ray 10/05/17 0000 Signed Impressions: Service Date/Time: Thursday, October 05, 2017 12:03 - CONCLUSION: 1. No acute fracture or dislocation. 2. Degenerative changes involving the lower lumbar spine, bilateral hips and symphysis pubis. Mg Magallon MD Carotid Artery Ultrasound 10/05/17 0000 Signed Impressions: Service Date/Time: Thursday, October 05, 2017 17:55 - CONCLUSION: Moderate calcified plaque without evidence of hemodynamically significant stenosis. Antegrade flow both vertebral arteries. Wilber Stovall MD Objective Remarks GEN: 81-year-old pleasant female resting in bed on nasal cannula SKIN: Warm and dry. HEAD: Status post left frontotemporoparietal craniotomy. [place] are clean dry and intact. Left DAVIAN removed without drainage EYES: Pupils round, appears equal ENT: No nasal bleeding or discharge. Tongue is midline. No uvula deviation. NECK: Trachea midline. No JVD. CARDIOVASCULAR: Regular rate and rhythm. S1, S2. No S4. No murmurs RESPIRATORY: No accessory muscle use. Clear to auscultation. Breath sounds equal bilaterally. GASTROINTESTINAL: Abdomen soft, non-tender, nondistended. MUSCULOSKELETAL: Extremities without clubbing, cyanosis, or edema. + Pulses bilaterally. NEUROLOGICAL: Awake and alert and oriented to person, place but not year (1917 instead of 2017).. No obvious cranial nerve deficits. Motor grossly within normal limits. Five out of 5 muscle strength in the arms and legs. Normal speech. Episodic expressive aphasia resolved. A/P Assessment and Plan NEURO/PSYCH: Acute traumatic left-sided epidural hematoma 21 mm along with left subdural hematoma 8mm left to right midline shift Acute encephalopathy Previous history of right-sided subdural hematoma 07/16 Chronic benzodiazepine use L3/4 spinal stenosis secondary to disc bulging History of cataracts Status post Dr. Ramos status post left frontal temporoparietal craniotomy with evacuation of epidural hematoma 10/05 Currently on hydrocodone/acetaminophen 10/325 one to 2 tablets Every 4 hours when necessary pain - Morphine sulfate 2- 4 mg IV every 2 hours when necessary pain -Levetiracetam 500 mg IV twice a day added with topiramate 200 mg by mouth twice a day per neurology/Dr. Natarajan EEG - abnormal awake and drowsy EEG. There were sharp discharges intermittently at the left parietal lesion that may be epileptogenic in nature. There was intermittent slowing that may indicate an encephalopathic pattern. There was no ictal activity noted. - Fall evaluation, PT/OT post op Holding alprazolam 0.25 mg by mouth twice a day as needed for anxiety On thiamine 100 mg IV daily 3 days MRI L-spine revealed severe spinal stenosis with disc bulging at L3/4 Carotid ultrasound moderate plaque without hemodynamically significant stenosis CT brain 10/08 - post surgical with significant reduction of the previous is seen mass effect and midline shift as well as the anterior portion of the subdural hematoma. The posterior subdural hematoma remains measuring [address] brain 10/08 repeat after aphasia set revealed some gas is nonspecific. RESP: - Nasal cannula oxygen currently at 4 L to maintain saturations greater or equal to 90% - Aggressive pulmonary toilet, with Acapella every 6 hours - Albuterol/ipratropium aerosols every 6 hours with albuterol aerosols every 2 hours. Dyspnea CV: Hypertension History dyslipidemia - Normal saline with KCl IV fluids at 100 cc an hour discontinued 10/07 - 2 D Echo, The left ventricular systolic function is normal with an estimated ejection fraction in the range of 60-65%. [id number] mitral valve regurgitation. Aortic valve sclerosis is present. No aortic valve regurgitation. No aortic valve stenosis. There is mild tricuspid valve regurgitation. The estimated pulmonary arterial pressure is 26.8 mmHg. Carotid Doppler revealed moderate stenosis without flow-limiting right - Target SBP <150 Amlodipine 10 mg by mouth daily home medication. Resume at 2.5 mg 10/08 GI: Gastroesophageal reflux disease Hypoalbuminemia Regular basic diet Pantoprazole 40 mg daily for GI prophylaxis. On omeprazole 20 mg daily at home Docusate sodium 100 mg by mouth twice a day for bowel regimen : - Monitor renal function closely. Fernandez catheter. ID: - Perioperative antibiotics per Dr. Ramos completed cefazolin 1 g IV 3 dosages Pending urine HEME: Normocytic anemia - Monitor CBC, CMP. Follow trends ENDO: Hypokalemia - Electrolyte replacement per protocol PROPH: - Bilateral lower extremity SCDs/CARMELO. IV pantoprazole for GI prophylaxis - Chemical DVT prophylaxis is contraindicated LINES: - Utilize peripheral IVs, central line if needed Level II follow-up Patient is stable from a critical care medicine standpoint. We'll assign care to hospitalist in a.m. 10/10. Transfer to floor okay with neurosurgery Kenneth Melgar MD Oct 09, 2017 20:11
[2017-10-10] VITALS (7 sets, daily range): BP systolic 127–131; BP diastolic 59–62; PULSE 70–84; RESP 16–35; TEMP 98.4–98.6; O2SAT 91–95
[2017-10-10] MEDS: levETIRAcetam INJ 500 MG in SODIUM CHLORIDE 0.9% INJ 100 ML IV SCH (02:18)
[2017-10-10] MEDS: RESP: ALBUTEROL 2.5 MG/IPRATROPIUM 0.5 MG NEB (SCH) NEB ×2 (04:03→09:01)
[2017-10-10] MEDS: amLODIPine BESYLATE 5 MG TAB PO SCH (08:50)
[2017-10-10] MEDS: PANTOPRAZOLE SOD 40 MG DELAYED RELEASE TAB PO SCH (08:50)
[2017-10-10] MEDS ORDERED: carBAMazepine 200 MG TAB PO SCH (09:00)
--- NOTE | 2017-10-10 12:50 | HHI.DS ---
Discharge Summary Admission Date Oct 05, 2017 at 12:47 Admitting Diagnosis acute left epidural hematoma, L3 compression fracture (1) Traumatic Left epidural hematoma with midline shift Diagnosis: Principal Status: Acute (2) Midline shift of brain ICD Code: G93.9 - Disorder of brain, unspecified Diagnosis: Principal Status: Acute (3) Acute subdural hematoma ICD Code: I62.01 - Nontraumatic acute subdural hemorrhage Diagnosis: Principal Status: Acute (4) Status post fall ICD Code: Z91.81 - History of falling Diagnosis: Principal Status: Acute (5) Compression fracture of L3 lumbar vertebra ICD Code: S32.030A - Wedge compression fracture of third lumbar vertebra, initial encounter for closed fracture Diagnosis: Principal Status: Acute (6) Severe lumbar spinal stenosis Diagnosis: Secondary Status: Chronic (7) Hypertension, benign ICD Code: I10 - Benign hypertension Diagnosis: Secondary Status: Chronic (8) Hyperlipidemia ICD Code: E78.5 - Hyperlipidemia Diagnosis: Secondary Status: Chronic Procedures Status post Dr. Ramos status post left frontal temporoparietal craniotomy with evacuation of epidural hematoma 10/05 Brief History Patient is a 87-year-old female that presents to the ED after sustaining a fall 2-3 days ago apparently landed on her back. Denies hitting her head. Her friend reported patient had been intermittently confused after the fall also complaining of back pain and dizziness. Patient has a history of subdural hematoma which was evacuated by Dr. Ramos June 2017. CT head showed large acute epidural hematoma along the left frontoparietal region measuring 21 mm with 8 mm of subfalcine herniation to the right. Acute subdural components also noted within left posterior parietal region. CT of the lumbar spine showed L3 compression fracture of indeterminate age and severe lumbar spinal stenosis\ I evaluated the patient in the ED. Patient is alert awake pleasant, oriented to person and place. Cannot recall the exact date of previous subdural hematoma evacuation. I discussed with Dr. Ramos. Patient has a large epidural hematoma with mass effect. Emergency evacuation of the epidural hematoma is indicated and Dr. Ramos is agreeable. I have ordered stat mannitol 25 g IV 1 also will start on Keppra 500 mg IV every 12 for seizure prophylaxis CBC/BMP: 10/09/17 0410 10/09/17 0410 Significant Findings Laboratory Tests Test 10/08/17 04:08 10/09/17 04:10 Hematocrit 33.7 % (35.0-46.0) 32.9 % (35.0-46.0) Monocytes (%) (Auto) 12.4 % (0.0-8.0) Eosinophils (%) (Auto) 4.3 % (0.0-4.0) Monocytes # (Auto) 1.0 TH/MM3 (0-0.9) Hemoglobin 11.2 GM/DL (11.6-15.3) Estimat Glomerular Filtration Rate 82 ML/MIN (>89) Imaging Last Impressions Neck CTA 10/08/17 0000 Signed Impressions: Service Date/Time: Sunday, October 08, 2017 15:56 - CONCLUSION: 1. Eccentric calcified plaque in the proximal internal carotid arteries bilaterally with resultant approximate 20%% stenosis. 2. Incidental note of medial retropharyngeal course of the right internal carotid artery. 3. Codominant patent vertebral arteries. Frank Sweet MD Head CTA 10/08/17 0000 Signed Impressions: Service Date/Time: Sunday, October 08, 2017 15:56 - CONCLUSION: 1. Unremarkable CTA examination of the brain. Specifically, no evidence of large vessel occlusion or significant intracranial flow-limiting stenosis. Frank Sweet MD Head CT 10/08/17 0000 Signed Impressions: Service Date/Time: Sunday, October 08, 2017 15:52 - CONCLUSION: 1. Interval removal of previously noted left subdural drainage catheter. 2. Gas is noted within the left subdural space. The previously noted hemorrhages otherwise not significant change. 3. Mild mass effect and midline shift remain. 4. No new hemorrhage or mass effect identified. Booker Elizondo MD Lumbar Spine MRI 10/06/17 0000 Signed Impressions: Service Date/Time: Friday, October 06, 2017 13:42 - CONCLUSION: 1. Multilevel degenerative disc disease most severe at L3-L4 with severe spinal canal stenosis secondary to disc bulge and posterior element hypertrophy Wili Richardson MD Chest X-Ray 10/05/17 1126 Signed Impressions: Service Date/Time: Thursday, October 05, 2017 12:11 - CONCLUSION: 1. Mild hepatomegaly. 2. No acute focal pulmonary infiltrate or pulmonary vascular congestion. Mg Magallon MD Lumbar Spine CT 10/05/17 0000 Signed Impressions: Service Date/Time: Thursday, October 05, 2017 11:50 - CONCLUSION: 1. Moderate compression deformity involving L3 of indeterminate age. 2. Grade I anterolisthesis of L4 relation to L5. 3. Severe spinal stenosis and moderate bilateral foraminal narrowing at L4-5. 4. Moderate spondylosis and bilateral foraminal narrowing at L2-3. 5. Moderate spinal stenosis and mild bilateral foraminal narrowing at L3-4. 6. Mild spinal stenosis and moderate to severe bilateral foraminal narrowing at L5-S1. 7. Facet joint hypertrophy bilaterally throughout the lumbar spine. 8. Uncomplicated sigmoid diverticulosis. Mg Magallon MD Hip and Pelvis X-Ray 10/05/17 0000 Signed Impressions: Service Date/Time: Thursday, October 05, 2017 12:03 - CONCLUSION: 1. No acute fracture or dislocation. 2. Degenerative changes involving the lower lumbar spine, bilateral hips and symphysis pubis. Mg Magallon MD Carotid Artery Ultrasound 10/05/17 0000 Signed Impressions: Service Date/Time: Thursday, October 05, 2017 17:55 - CONCLUSION: Moderate calcified plaque without evidence of hemodynamically significant stenosis. Antegrade flow both vertebral arteries. Wilber Stovall MD PE at Discharge GEN: 81-year-old pleasant female resting in bed on nasal cannula SKIN: Warm and dry. HEAD: Status post left frontotemporoparietal craniotomy. [place] are clean dry and intact. Left DAVIAN removed without drainage EYES: Pupils round, appears equal ENT: No nasal bleeding or discharge. Tongue is midline. No uvula deviation. NECK: Trachea midline. No JVD. CARDIOVASCULAR: Regular rate and rhythm. S1, S2. No S4. No murmurs RESPIRATORY: No accessory muscle use. Clear to auscultation. Breath sounds equal bilaterally. GASTROINTESTINAL: Abdomen soft, non-tender, nondistended. MUSCULOSKELETAL: Extremities without clubbing, cyanosis, or edema. + Pulses bilaterally. NEUROLOGICAL: Awake and alert and oriented to person, place but not year (8 instead of 2017).. No obvious cranial nerve deficits. Motor grossly within normal limits. Five out of 5 muscle strength in the arms and legs. Normal speech. Episodic expressive aphasia resolved. Transfer Summary NEURO/PSYCH: Acute traumatic left-sided epidural hematoma 21 mm along with left subdural hematoma 8mm left to right midline shift Acute encephalopathy Previous history of right-sided subdural hematoma 07/16 Chronic benzodiazepine use L3/4 spinal stenosis secondary to disc bulging History of cataracts Status post Dr. Ramos status post left frontal temporoparietal craniotomy with evacuation of epidural hematoma 10/05 Currently on hydrocodone/acetaminophen 10/325 one to 2 tablets Every 4 hours when necessary pain - Morphine sulfate 2- 4 mg IV every 2 hours when necessary pain -Levetiracetam 500 mg IV twice a day added with topiramate 200 mg by mouth twice a day per neurology/Dr. Natarajan EEG - abnormal awake and drowsy EEG. There were sharp discharges intermittently at the left parietal lesion that may be epileptogenic in nature. There was intermittent slowing that may indicate an encephalopathic pattern. There was no ictal activity noted. - Fall evaluation, PT/OT post op Holding alprazolam 0.25 mg by mouth twice a day as needed for anxiety On thiamine 100 mg IV daily 3 days MRI L-spine revealed severe spinal stenosis with disc bulging at L3/4 Carotid ultrasound moderate plaque without hemodynamically significant stenosis CT brain 10/08 - post surgical with significant reduction of the previous is seen mass effect and midline shift as well as the anterior portion of the subdural hematoma. The posterior subdural hematoma remains measuring [address] brain 10/08 repeat after aphasia set revealed some gas is nonspecific. RESP: - Nasal cannula oxygen currently at 4 L to maintain saturations greater or equal to 90% - Aggressive pulmonary toilet, with Acapella every 6 hours - Albuterol/ipratropium aerosols every 6 hours with albuterol aerosols every 2 hours. Dyspnea CV: Hypertension History dyslipidemia - Normal saline with KCl IV fluids at 100 cc an hour discontinued 10/07 - 2 D Echo, The left ventricular systolic function is normal with an estimated ejection fraction in the range of 60-65%. [id number] mitral valve regurgitation. Aortic valve sclerosis is present. No aortic valve regurgitation. No aortic valve stenosis. There is mild tricuspid valve regurgitation. The estimated pulmonary arterial pressure is 26.8 mmHg. Carotid Doppler revealed moderate stenosis without flow-limiting right - Target SBP <150 Amlodipine 10 mg by mouth daily home medication. Resume at 2.5 mg 10/08 GI: Gastroesophageal reflux disease Hypoalbuminemia Regular basic diet Pantoprazole 40 mg daily for GI prophylaxis. On omeprazole 20 mg daily at home Docusate sodium 100 mg by mouth twice a day for bowel regimen : - Monitor renal function closely. Fernandez catheter. ID: - Perioperative antibiotics per Dr. Ramos completed cefazolin 1 g IV 3 dosages Pending urine HEME: Normocytic anemia - Monitor CBC, CMP. Follow trends ENDO: Hypokalemia - Electrolyte replacement per protocol PROPH: - Bilateral lower extremity SCDs/CARMELO. IV pantoprazole for GI prophylaxis - Chemical DVT prophylaxis is contraindicated LINES: - Utilize peripheral IVs, central line if needed Critical care discharge less than 35 minutes Hospital Course Patient is a 87-year-old female that presents to the ED after sustaining a fall 2-3 days ago apparently landed on her back. Denies hitting her head. Her friend reported patient had been intermittently confused after the fall also complaining of back pain and dizziness. Patient has a history of subdural hematoma which was evacuated by Dr. Ramos June 2017. CT head showed large acute epidural hematoma along the left frontoparietal region measuring 21 mm with 8 mm of subfalcine herniation to the right. Acute subdural components also noted within left posterior parietal region. CT of the lumbar spine showed L3 compression fracture of indeterminate age and severe lumbar spinal stenosis\ I evaluated the patient in the ED. Patient is alert awake pleasant, oriented to person and place. Cannot recall the exact date of previous subdural hematoma evacuation. I discussed with Dr. Ramos. Patient has a large epidural hematoma with mass effect. Emergency evacuation of the epidural hematoma is indicated and Dr. Ramos is agreeable. I have ordered stat mannitol 25 g IV 1 also will start on Keppra 500 mg IV every 12 for seizure prophylaxis 10/06: Afebrile. Resting in bed in no acute distress on 5 L nasal cannula.. Tolerating diet. Complaining of back pain. 10/07: Afebrile. Currently in 4 L nasal cannula. DAVIAN -260s SS. No bowel movement. Tolerating diet. 10/08: Afebrile. On room air. DAVIAN removed today. Episode of excessive word repetition 5 minutes without other focal motor or sensory deficits. Stat CT brain/CTA brain/neck pending 10/09: Resting comfortably in bed in no acute distress. Afebrile. No further seizure-like activity. Tolerating diet. 10/10: Resting comfortably in no acute distress. No further seizure activity. Tolerating diet. Afebrile. Pt Condition on Discharge: Stable Discharge Disposition: Rehab Inpatient Discharge Instructions DIET: Follow Instructions for: Heart Healthy Diet Activities you can perform: Regular-No Restrictions Kenneth Melgar MD Oct 10, 2017 12:50
[2017-10-10] MEDS ORDERED: ALPRAZolam 0.25 MG TAB PO PRN ×2 (13:00)
[2017-10-10] MEDS ORDERED: ALPR0.25 PO (13:04)
[2017-10-10] MEDS ORDERED: AMLO10TA2 PO (13:04)
[2017-10-10] MEDS ORDERED: CARB200T PO (13:04)
[2017-10-10] MEDS ORDERED: OMEP20TA93 PO (13:04)
[2017-10-10] MEDS ORDERED: LEVE500 PO (13:04)
--- NOTE | 2017-10-10 13:19 | HHI.NSPN ---
(Clara Jack) Note Status Status: Progress Note (Clara Jack) Status: Progress Note (Yonatan Ramos MD) Interval History Interval History Ms Becerra is a 87 year old male who was brought to [facility] with recurrent falls. CT of the brain showed a large left subdural hematoma with increasing maximun thickness of 20mm, mass effect and midline shift. A surgical decompression was indicated as recommended by the Trauma Committee of [employer]. She underwent a Left frontal temporal parietal craniotomy, evacuation of subdural hematoma on Oct 05, 2017. 10/06: stable post-op, alert, moves all four ext, c/o of back pain, poss acute L3 compression fracture per CT 10/07: mild headaches today, and persistent lumbar pain. MRI L spine shows chronic compression fracture with degenerative spondylosis. 10/08: patient was seen this morning during rounds, doing well eating her breakfast, no focal neuro deficits. CT Head yesterday with improved left subdural hematoma and improved midline shift. Returned earlier this afternoon to remove DAVIAN drain, and immediately following drain removal patient developed expressive dysphasia. She was however able to follow commands, facial and extremity motor are symmetric. There were no seizure like activities, no LOC. DAVIAN site was closed with single stitch due to moderate leaking from site, and following closure of DAVIAN site, patient's speech improved. critical care was present during her episode, for stat repeat CT head. 10/09: denies any further speech difficulties since yesterday, denies focal weakness, vision changes, headaches. requesting to go home, but agrees to [facility] inpatient rehab. f/u CT Heads unremarkable with stable findings. EEG also obtained yesterday shows sharp discharges. 10/10: no further seizure like episode, feels well and eager for rehab (Clara Jack) Labs, Micro, & Vital Signs Results Date Time Temp Pulse Resp B/P (MAP) Pulse Ox O2 Delivery O2 Flow Rate FiO2 10/10/17 09:01 95 10/10/17 07:00 98 Nasal Cannula 3.00 10/10/17 06:00 74 10/10/17 04:04 95 10/10/17 04:00 98.4 70 16 131/62 (85) 91 10/10/17 04:00 70 10/10/17 02:00 82 10/10/17 00:32 93 10/10/17 00:00 98.6 84 35 127/59 (81) 91 10/10/17 00:00 84 10/09/17 22:00 88 10/09/17 21:37 95 10/09/17 20:17 95 10/09/17 20:00 86 10/09/17 20:00 98.5 86 19 133/62 (85) 95 10/09/17 19:00 94 Nasal Cannula 3.00 10/09/17 18:00 80 10/09/17 16:00 98.1 72 21 138/66 (90) 10/09/17 16:00 78 10/09/17 15:31 22 10/09/17 14:00 80 Constitutional Vital Signs Date Time Temp Pulse Resp B/P (MAP) Pulse Ox O2 Delivery O2 Flow Rate FiO2 10/10/17 09:01 95 10/10/17 07:00 98 Nasal Cannula 3.00 10/10/17 06:00 74 10/10/17 04:04 95 10/10/17 04:00 98.4 70 16 131/62 (85) 91 10/10/17 04:00 70 10/10/17 02:00 82 10/10/17 00:32 93 10/10/17 00:00 98.6 84 35 127/59 (81) 91 10/10/17 00:00 84 10/09/17 22:00 88 10/09/17 21:37 95 10/09/17 20:17 95 10/09/17 20:00 86 10/09/17 20:00 98.5 86 19 133/62 (85) 95 10/09/17 19:00 94 Nasal Cannula 3.00 10/09/17 18:00 80 10/09/17 16:00 98.1 72 21 138/66 (90) 10/09/17 16:00 78 10/09/17 15:31 22 10/09/17 14:00 80 (Clara Jack) Physical Exam Ms. Becerra is alert, speech is appropriate, follows commands without apraxia. Surgical incision healing well. DAVIAN drain site stitch without drainage. Cranial nerve examination: pupils equal, round and reactive to light. Extra- ocular movements are intact. Facial motor and sensory function are normal and symmetrical. Tongue protruded midline. Neck is soft and supple Motor: moving all four extremities symmetrically Cerebellar: intact finger to nose test b/l (Clara Jack) Medications Current Medications Current Medications Medications (Trade) Dose Ordered Sig/Hannah Route PRN Reason Start Time Stop Time Status Last Admin Dose Admin Carbamazepine (TEGretol) 200 mg BID PO 10/10/17 09:00 10/10/17 08:50 Levetriacetam (Keppra) 500 mg Q12HR PO 10/10/17 21:00 UNV Amlodipine Besylate (Norvasc) 10 mg DAILY PO 10/11/17 09:00 UNV Alprazolam (Xanax) 0.25 mg BID PRN PO anxiety 10/10/17 13:00 UNV Alprazolam (Xanax) 0.25 mg BID PRN PO ANXIETY 10/10/17 13:00 UNV Amlodipine Besylate (Norvasc) 10 mg DAILY PO 10/11/17 09:00 UNV Non-Formulary Medication 20 mg DAILY PO 10/11/17 09:00 UNV (Clara Jack) Medical Decision Making MDM Remarks 87 y/o female s/p left frontal temporal parietal craniotomy, evacuation of subdural hematoma on 10/05/17 possible acute L3 compression fracture, chronic fracture on MRI lumbar spine - with chronic degenerative spondylosis 10/08 episode of expressive aphasia lasted few minutes, patient was able however to comprehend and follow commands, no other focal neurological findings. No other seizure like activities. follow up CT Head with stable small pneumocephalus, stable residual midline shift, no new hemorrhages. CTA Head/Neck unremarkable for significant stenosis EEG 10/08 with sharp discharges may be epileptogenic in nature (Clara Jack) Plan Plan Remarks follow up CTs reviewed, stable findings, cont Keppra and Tegretol per Neurology dc PO rehab once cleared by Neurology cont nonchemical dvt prophylaxis in view of acute ICH protonix for stress ulcer proph f/u in office 1 week for staple removal (Clara Jack) Attending Statement The exam, history, and the medical decision-making described in the above note were completed with the assistance of the mid-level provider. I reviewed and agree with the findings presented. I attest that I had a [id number] encounter with the patient on the same day, and personally performed and documented my assessment and findings in the medical record. (Yonatan Ramos MD) Clara Jack Oct 10, 2017 13:19 Yonatan Ramos MD Oct 13, 2017 10:24
[2017-10-10] MEDS ORDERED: levETIRAcetam 500 MG TAB PO SCH (21:00)
[2017-10-11] MEDS ORDERED: PANTOPRAZOLE SOD 20 MG DELAYED RELEASE TAB PO SCH (09:00)
== END 2017-10-10 15:36 | DRG 25 ==
LOC: NEPC 11:07 → NEDA 12:47 → N03B 16:32
PROVIDERS: ADMIT Internal Medicine; ATTEND Internal Medicine
PROC: 00C40ZZ Extirpation of Matter from Intracranial Subdural Space, Open Approach (ICD-10-PCS; principal; 2017-10-05 13:32)
DX: S06.5X9A Traumatic subdural hemorrhage with loss of consciousness of unspecified duration, initial encounter (principal); G93.40 Encephalopathy, unspecified; G93.5 Compression of brain; I50.9 Heart failure, unspecified; I11.0 Hypertensive heart disease with heart failure; R56.9 Unspecified convulsions; E88.09 Other disorders of plasma-protein metabolism, not elsewhere classified; I08.3 Combined rheumatic disorders of mitral, aortic and tricuspid valves; R47.01 Aphasia; S32.030D Wedge compression fracture of third lumbar vertebra, subsequent encounter for fracture with routine healing; Z91.81 History of falling; W19.XXXA Unspecified fall, initial encounter; M48.061 Spinal stenosis, lumbar region without neurogenic claudication; E78.5 Hyperlipidemia, unspecified; Z87.820 Personal history of traumatic brain injury; K21.9 Gastro-esophageal reflux disease without esophagitis; I25.10 Atherosclerotic heart disease of native coronary artery without angina pectoris; Z96.653 Presence of artificial knee joint, bilateral; Z96.642 Presence of left artificial hip joint; E87.6 Hypokalemia; R29.6 Repeated falls; M47.896 Other spondylosis, lumbar region; Z79.899 Other long term (current) drug therapy; F41.9 Anxiety disorder, unspecified; D64.9 Anemia, unspecified
CPT/HCPCS: 70450; 70496; 70498; 71045; 72131; 72148; 73502; 80048; 80053; 82550; 82607; 83735; 84100; 84443; 84484; 85025; 85027; 85610; 85730; 87641; 88304; 93005; 93306; 93880; 94150; 94640; 94664; 94667; 94668; 95819; C1713; J0690; J1100; J1580; J1953; J2270; J2370; J2405; J2710; J3010; J3411; J3480; J7613; Q9967